=== PATIENT | male | born 1950 | race Caucasian/White ===

== ENCOUNTER → 2018-09-11 | Outpatient (CLI) | payer MEDICARE ==
--- NOTE | 2018-09-12 07:20 | US ---
EXAMINATION TYPE: US kidneys/renal and bladder DATE OF EXAM: 09/11/2018 COMPARISON: NONE CLINICAL HISTORY: N18.3 CKD Stage 3. EXAM MEASUREMENTS: Right Kidney: 11.2 x 5.5 x 5.5 cm Left Kidney: 12.3 x 5. 1 x 5.5 cm Morbidly obese patient, technically difficult limited study. Right Kidney: multiple cysts largest measuring 3.3 x 3.1 x 3.6cm Left Kidney: cysts measuring 3.3 x 3.4 x 3.3cm Bladder: not visualized due to large panis There is no evidence for hydronephrosis at this point in time. No nephrolithiasis is seen. The urin eleazar bladder is anechoic. Bilateral ureteral jets are seen. IMPRESSION: Exam is slightly limited secondary to patient body habitus with nonvisualization of the urinary bladd er. There are bilateral simple appearing cortical renal cysts without hydronephrosis.
== END | disposition home or self-care (01) ==
LOC: RADUSWWP 15:19
PROVIDERS: ATTEND Internal Medicine Nephrology
DX: N28.1 Cyst of kidney, acquired (principal); N18.3 Chronic kidney disease, stage 3 (moderate)
CPT/HCPCS: 76770

== ENCOUNTER 2018-10-10 06:54 | Day surgery (SDC) | payer MEDICARE ==
[2018-10-06 15:30] VITALS: BMI 44.3
[~2018-10-10 06:54] MED LIST: LACTATED RINGERS 1,000 ML IV SCH; LIDOCAINE 1% 20 ML VIAL (10MG/ML) FOR IV START INTRADERMA PRN
[2018-10-10 07:15] VITALS: RESP 16; TEMP 98.3
[2018-10-10 07:29] LABS: Glucose,Whole Blood 162 mg/dL (75-99)
[2018-10-10] MEDS ORDERED: PROPOFOL 10 MG/ML 20 ML VIAL IV ONE (08:43)
[2018-10-10] MEDS ORDERED: LIDOCAINE 1% INJ 10MG/ML (20 ML MDV) ONE (08:43)
[2018-10-10 09:33] VITALS: BP 124/84; PULSE 92
--- NOTE | 2018-10-10 15:03 | P.PCN ---
Date of Procedure: 10/10/18 Procedure(s) Performed: Procedure: Colonoscopy and polypectomy. Preoperative diagnosis: Positive cologuard test. Postoperative diagnosis: 1. Diverticulosis with no evidence of acute diverticulitis or strictures. 2. Benign appearing flat polyp around the splenic flexure partially removed piecemeal with the snare and few small and diminutive satellite polyps around the splenic flexure. 3. No large polyps or obvious cancer. Preparation: HalfLytely prep. Sedation: Was provided by anesthesia. Brief clinical history: The patient is a 68-year-old male who is referred for this evaluation because of finding of positive cologuard test. He has history of polyps and had couple colonoscopies in the past the last was around 7 years ago. He has no abdominal pain, change in bowels or any upper GI complaints or overt bleeding. Procedure: With the patient on his left lateral decubitus position and after informed consent and adequate sedation, the perianal area was inspected and it did not show any fissures or fistulas. There were no masses felt on digital rectal examination. The Olympus CFH 190L video colonoscope was then inserted in the rectum in the usual fashion and advanced to the cecum. There was a benign appearing flat polyp around the splenic flexure measuring around 2-3 cm with few small satellite polyps in the vicinity. There were no large polyps or cancer. I used the snare to remove this polyp partially by piecemeal. There was diffuse diverticulosis with no evidence of acute diverticulitis or strictures. There were no large polyps or cancer. I retroflexed the endoscope in the rectum before the endoscope was withdrawn The patient tolerated the procedure well. Plan: The patient was reassured. Will await pathology results and make further plans for his surveillance and screening. I will keep you updated on his progress.
== END 2018-10-10 09:47 | disposition home or self-care (01) ==
LOC: ORWHC2ENDO 06:54
DX: D12.3 Benign neoplasm of transverse colon (principal); K57.30 Diverticulosis of large intestine without perforation or abscess without bleeding; R19.5 Other fecal abnormalities; Z86.010 Personal history of colon polyps; J44.9 Chronic obstructive pulmonary disease, unspecified; I48.91 Unspecified atrial fibrillation; E11.9 Type 2 diabetes mellitus without complications; I10 Essential (primary) hypertension; I25.10 Atherosclerotic heart disease of native coronary artery without angina pectoris; E78.5 Hyperlipidemia, unspecified; G47.33 Obstructive sleep apnea (adult) (pediatric); G93.2 Benign intracranial hypertension; M10.9 Gout, unspecified; I25.2 Old myocardial infarction; Z86.718 Personal history of other venous thrombosis and embolism; Z79.01 Long term (current) use of anticoagulants; Z79.84 Long term (current) use of oral hypoglycemic drugs; Z79.82 Long term (current) use of aspirin; Z79.899 Other long term (current) drug therapy
CPT/HCPCS: 88305; 45385; J2001; J2704

== ENCOUNTER 2021-01-23 16:13 | Emergency (ER) | payer MEDICARE ==
[2021-01-23 16:46] VITALS: BP 156/76; PULSE 70; RESP 16; TEMP 97.8
--- NOTE | 2021-01-23 17:03 | ED ---
Fall HPI - General Chief Complaint: Fall Stated Complaint: Fall, Head Injury Time Seen by Provider: 01/23/21 16:50 Source: patient, RN notes reviewed Mode of arrival: wheelchair - History of Present Illness Initial Comments: Patient is a 70-year-old male that presents to emergency department after falling and hitting his head on the door frame. He notes that he does take a loquacious an 81 mg aspirin every day. She denied loss of consciousness confusion change in vision. He notes that he is feeling final sitting up in bed during exam and interview in no apparent distress or pain. He notes that he came in just to get evaluated to make sure there is no internal bleeding. He denied any chest pain shortness breath headache nausea vomiting diarrhea constipation fever fatigue chills weakness numbness tingling lethargic. - Related Data Home Medications Medication Instructions Recorded Confirmed Aspirin 81 mg PO DAILY 11/05/14 10/10/18 Colchicine [Colcrys] 0.6 mg PO DAILY PRN 11/05/14 10/10/18 Ergocalciferol (Vitamin D2) 50,000 unit PO FR 11/05/14 10/10/18 [Drisdol] Simvastatin [Zocor] 20 mg PO HS 11/05/14 10/10/18 amLODIPine [Norvasc] 5 mg PO QAM 11/05/14 10/10/18 Rivaroxaban [Xarelto] 20 mg PO QAM 01/29/16 10/10/18 Triamterene-Hctz 37.5-25Mg 1 cap PO DAILY 05/04/16 10/10/18 [Dyazide 37.5-25 Capsule] allopurinoL [Zyloprim] 100 mg PO BID 05/04/16 10/10/18 Cinnamon Bark [Cinnamon] 500 mg PO BID 10/06/18 10/10/18 Metoprolol Tartrate 25 mg PO 10/06/18 10/10/18 Metoprolol Tartrate 50 mg PO QAM 10/06/18 10/10/18 glipiZIDE [Glucotrol] 5 mg PO AC-BRKFST 10/06/18 10/10/18 ramipriL [Altace] 5 mg PO QAM 10/06/18 10/10/18 sitaGLIPtin [Januvia] 50 mg PO 10/06/18 10/10/18 Allergies Allergy/AdvReac Type Severity Reaction Status Date / Time No Known Allergies Allergy Verified 01/23/21 16:46 Review of Systems ROS Statement: Those systems with pertinent positive or pertinent negative responses have been documented in the HPI. ROS Other: All systems not noted in ROS Statement are negative. Past Medical History Past Medical History: Atrial Fibrillation, COPD, Diabetes Mellitus, Deep Vein Thrombosis (DVT), Eye Disorder, Hyperlipidemia, Hypertension, Myocardial Infarction (MT), Osteoarthritis (OA), Renal Disease, Sleep Apnea/CPAP/BIPAP Additional Past Medical History / Comment(s): 2016 sepsis, severe back pain, hx bacteremia, DDD, renal cysts being followed by Dr. 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 Past Psychological History: No Psychological Hx Reported Smoking Status: Never smoker Past Alcohol Use History: Rare Past Drug Use History: Marijuana - Past Family History Mother Family Medical History: CVA/TIA, Deep Vein Thrombosis (DVT) Additional Family Medical History / Comment(s): Mother is 92 yrs old. She had a CVA which left her with R sided paralysis. Father Family Medical History: Cancer Additional Family Medical History / Comment(s): Father is . General Exam Limitations: no limitations General appearance: alert, in no apparent distress, obese Head exam: Present: normocephalic, normal inspection. Absent: atraumatic (Patient does have a small bump to the superior right side of the skull.) Eye exam: Present: normal appearance, PERRL, EOMI. Absent: scleral icterus, conjunctival injection, periorbital swelling Neck exam: Present: normal inspection Respiratory exam: Present: normal lung sounds bilaterally. Absent: respiratory distress, wheezes, rales, rhonchi, stridor Cardiovascular Exam: Present: regular rate, normal rhythm, normal heart sounds. Absent: systolic murmur, diastolic murmur, rubs, gallop, clicks GI/Abdominal exam: Present: soft, normal bowel sounds. Absent: distended, tenderness, guarding, rebound, rigid Extremities exam: Present: normal inspection, full ROM, normal capillary refill. Absent: tenderness, pedal edema, joint swelling, calf tenderness Neurological exam: Present: alert, oriented X3, CN II-XII intact Psychiatric exam: Present: normal affect, normal mood Skin exam: Present: warm, dry, intact, normal color. Absent: rash Course Vital Signs 01/23/21 16:44 Temperature 97.8 F Pulse Rate 70 Respiratory 16 Rate Blood Pressure 156/76 O2 Sat by Pulse 95 Oximetry Medical Decision Making - Medical Decision Making 70-year-old male presenting after falling and hitting his head on blood thinners. CT of the brain without contrast, basic labs ordered. Patient declined the need for any pain medication as he was in no pain. CT negative for any intracranial abnormalities. Case discussed with Dr. Gregory, patient discharge home. Patient was discharged in stable condition. - Lab Data Result diagrams: 01/23/21 17:44 01/23/21 17:44 Lab Results 01/23/21 01/23/21 01/23/21 Range/Units 17:44 17:44 17:44 WBC 9.2 (3.8-10.6) k/uL RBC 5.81 (4.30-5.90) m/uL Hgb 17.9 H (13.0-17.5) gm/dL Hct 54.0 H (39.0-53.0) % MCV 92.9 (80.0-100.0) fL MCH 30.7 (25.0-35.0) pg MCHC 33.1 (31.0-37.0) g/dL RDW 13.7 (11.5-15.5) % Plt Count 157 (150-450) k/uL MPV 7.4 Neutrophils % 67 % Lymphocytes % 21 % Monocytes % 7 % Eosinophils % 2 % Basophils % 1 % Neutrophils # 6.1 (1.3-7.7) k/uL Lymphocytes # 1.9 (1.0-4.8) k/uL Monocytes # 0.6 (0-1.0) k/uL Eosinophils # 0.2 (0-0.7) k/uL Basophils # 0.1 (0-0.2) k/uL PT 12.2 H (9.0-12.0) sec INR 1.2 H (<1.2) APTT 26.7 (22.0-30.0) sec Sodium 139 (137-145) mmol/L Potassium 4.4 (3.5-5.1) mmol/L Chloride 104 (98-107) mmol/L Carbon Dioxide 27 (22-30) mmol/L Anion Gap 8 mmol/L BUN 36 H (9-20) mg/dL Creatinine 2.03 H (0.66-1.25) mg/dL Est GFR (CKD-EPI)AfAm 37 (>60 ml/min/1.73 sqM) Est GFR (CKD-EPI)NonAf 32 (>60 ml/min/1.73 sqM) Glucose 128 H (74-99) mg/dL Calcium 9.9 (8.4-10.2) mg/dL - Radiology Data Radiology results: report reviewed, image reviewed CT of the brain: Cerebral atrophy. No acute intracranial abnormality. No significant change. Disposition Clinical Impression: Fall Disposition: HOME SELF-CARE Condition: Stable Instructions (If sedation given, give patient instructions): Fall Prevention for Older Adults (ED) Additional Instructions: Please return to the Emergency Department if symptoms worsen or any other concerns. Follow-up primary care in 3-5 days. Continue to take at home medications as prescribed. Monitor for any change in mental status. Is patient prescribed a controlled substance at d/c from ED?: No Referrals: Oh Holder DO [Primary Care Provider] - 1-2 days Time of Disposition: 18:58
[2021-01-23 17:52] LABS: Basophils # (A) 0.1 k/uL (0-0.2); Basophils % (A) 1 %; Eosinophils # (A) 0.2 k/uL (0-0.7); Eosinophils % (A) 2 %; HGB 17.9 gm/dL (13.0-17.5); Lymphocytes # (A) 1.9 k/uL (1.0-4.8); Lymphocytes % (A) 21 %; MCH 30.7 pg (25.0-35.0); MCHC 33.1 g/dL (31.0-37.0); MCV 92.9 fL (80.0-100.0); Mean Platelet Volume 7.4; Monocytes # (A) 0.6 k/uL (0-1.0); Monocytes % (A) 7 %; Neutrophils # (A) 6.1 k/uL (1.3-7.7); Neutrophils % (A) 67 %; Platelet Count 157 k/uL (150-450); RBC 5.81 m/uL (4.30-5.90); RDW 13.7 % (11.5-15.5); WBC 9.2 k/uL (3.8-10.6)
[2021-01-23 18:02] LABS: Calcium 9.9 mg/dL (8.4-10.2); Potassium 4.4 mmol/L (3.5-5.1)
[2021-01-23 18:04] LABS: INR 1.2 (<1.2); Partial Thromboplastin Time 26.7 sec (22.0-30.0); Prothrombin Time 12.2 sec (9.0-12.0)
--- NOTE | 2021-01-23 18:55 | CT ---
EXAMINATION TYPE: CT brain wo con DATE OF EXAM: 01/23/2021 COMPARISON: HISTORY: Head injury on blood thinners CT DLP: 1189.4 mGycm Automated exposure control for dose reduction was used. There is cerebral cortical atrophy. There is no mass effect nor midline shift. There is no sign of in tracranial hemorrhage. There is small left occipital scalp hematoma. The calvarium is intact. There i s no evidence for fracture. The skull base is intact. There is normal aeration of the mastoid sinuses . IMPRESSION: Cerebral atrophy. No acute intracranial abnormality. No significant change.
== END 2021-01-23 19:05 | disposition home or self-care (01) ==
LOC: EC 16:13
DX: S09.90XA Unspecified injury of head, initial encounter (principal); I48.91 Unspecified atrial fibrillation; J44.9 Chronic obstructive pulmonary disease, unspecified; E11.9 Type 2 diabetes mellitus without complications; Z86.718 Personal history of other venous thrombosis and embolism; E78.5 Hyperlipidemia, unspecified; I10 Essential (primary) hypertension; M19.90 Unspecified osteoarthritis, unspecified site; I21.9 Acute myocardial infarction, unspecified; G47.30 Sleep apnea, unspecified; Z79.01 Long term (current) use of anticoagulants; W18.09XA Striking against other object with subsequent fall, initial encounter
CPT/HCPCS: 36415; 70450; 80048; 85025; 85610; 85730; 99284

== ENCOUNTER 2022-12-05 23:26 | Inpatient (IN) | payer MEDICARE ==
[2022-12-05] MEDS ORDERED: ACETAMINOPHEN TAB 500 MG TAB PO STA (23:43)
[2022-12-05] MEDS: SODIUM CHLORIDE 0.9% 500 ML 500 ML IV SCH (23:59)
[2022-12-06 00:02] LABS: Basophils # (A) 0.1 k/uL (0-0.2); Basophils % (A) 0 %; Eosinophils # (A) 0.1 k/uL (0-0.7); Eosinophils % (A) 1 %; HCT 38.8 % (39.0-53.0); HGB 12.3 gm/dL (13.0-17.5); Lymphocytes # (A) 0.5 k/uL (1.0-4.8); Lymphocytes % (A) 2 %; MCH 29.7 pg (25.0-35.0); MCHC 31.8 g/dL (31.0-37.0); MCV 93.3 fL (80.0-100.0); Mean Platelet Volume 7.9; Monocytes # (A) 0.7 k/uL (0-1.0); Monocytes % (A) 3 %; Neutrophils # (A) 19.8 k/uL (1.3-7.7); Neutrophils % (A) 92 %; RBC 4.15 m/uL (4.30-5.90); RDW 14.5 % (11.5-15.5); WBC 21.6 k/uL (3.8-10.6)
[2022-12-06 00:04] LABS: Platelet Count 301 k/uL (150-450)
[2022-12-06 00:05] LABS: Glucose,Whole Blood 153 mg/dL (70-110)
[2022-12-06 00:05] LABS: Appearance,Urine Clear (Clear); Bilirubin,Urine Negative (Negative); Blood,Urine Moderate (Negative); Color,Urine Yellow; Glucose,Urine (UA) 1+ (Negative); Hyaline Casts,Urine 1 /lpf (0-2); Ketones,Urine Negative (Negative); Leukocyte Esterase,Urine Negative (Negative); Mucus,Urine Rare /hpf; Nitrite,Urine Negative (Negative); Protein,Urine 3+ (Negative); RBC,Urine 91 /hpf (0-5); Specific Gravity,Urine 1.012 (1.001-1.035); Urobilinogen,Urine <2.0 mg/dL (<2.0); WBC,Urine 5 /hpf (0-5)
[2022-12-06 00:10] LABS: INR 1.2 (<1.2); Partial Thromboplastin Time 27.8 sec (22.0-30.0); Prothrombin Time 12.6 sec (9.0-12.0)
[2022-12-06 00:15] LABS: Albumin 2.7 g/dL (3.5-5.0); Calcium 8.4 mg/dL (8.4-10.2); Potassium 3.7 mmol/L (3.5-5.1); Total Bilirubin 0.8 mg/dL (0.2-1.3); Total Protein 5.8 g/dL (6.3-8.2)
--- NOTE | 2022-12-06 00:43 | XR ---
EXAMINATION TYPE: XR chest 1V portable DATE OF EXAM: 12/06/2022 COMPARISON: 11/17/2022 HISTORY: Fever TECHNIQUE: Single view FINDINGS: There is some interstitial infiltrates and atelectasis at the lung bases. Heart is enlarged . There are chest leads. Bony thorax is intact. IMPRESSION: There is improvement in the pulmonary congestion and interstitial edema and subsegmental atelectasis compared to old exam. This could be improving congestive heart failure.
[2022-12-06] MEDS: SODIUM CHLORIDE 0.9% 500 ML 500 ML IV SCH (00:47)
--- NOTE | 2022-12-06 02:29 | ED ---
General Adult HPI - General Chief complaint: Altered Mental Status Stated complaint: Altered Mental Status Time Seen by Provider: 12/05/22 23:27 Source: EMS Mode of arrival: EMS Limitations: altered mental status, physical limitation - History of Present Illness Initial comments: This is a 72-year-old male with a past medical history including atrial fib rillation presents the emergency department via EMS for altered mental status. It was reported the patient had become altered throat the day and was concerning for a UTI so they sent the patient in for further workup. On arrival, the patient was ANO times one which was not his baseline. The patient however did not appear in any acute distress or pain. The patient cannot provide any further history at this time and EMS did not have any other history. There was no family at the bedside at this time. - Related Data Home Medications Medication Instructions Recorded Confirmed Aspirin 81 mg PO HS 11/05/14 11/17/22 Simvastatin [Zocor] 20 mg PO HS 11/05/14 11/17/22 allopurinoL [Zyloprim] 100 mg PO BID 05/04/16 11/17/22 Cinnamon Bark [Cinnamon] 500 mg PO DAILY 10/06/18 11/17/22 Metoprolol Tartrate 25 mg PO HS 10/06/18 11/17/22 Metoprolol Tartrate 50 mg PO DAILY 10/06/18 11/17/22 Ergocalciferol (Vitamin D2) 1,250 mcg PO MOWEFR@209911/17/22 11/17/22 [Drisdol (50,000 Iu)] Melatonin 5 mg PO HS 11/17/22 11/17/22 calcitrioL [Calcitriol] 0.5 mcg PO SUTH@209911/17/22 11/17/22 Previous Rx's Medication Instructions Recorded Acetaminophen Tab [Tylenol] 650 mg PO Q6HR PRN tab 11/22/22 Albuterol Inhaler [Ventolin Hfa 2 puff INHALATION RT-QID PRN #1 11/22/22 Inhaler] each Apixaban [Eliquis] 2.5 mg PO BID #60 tab 11/22/22 Furosemide [Lasix] 40 mg PO BID@0900,1600 #60 tab 11/22/22 Linagliptin [Tradjenta] 5 mg PO HS #30 tab 11/22/22 Allergies Allergy/AdvReac Type Severity Reaction Status Date / Time No Known Allergies Allergy Verified 11/17/22 10:15 Review of Systems ROS Statement: Those systems with pertinent positive or pertinent negative responses have been documented in the HPI. Limitations: ROS unobtainable due to patients medical condition Past Medical History Past Medical History: Atrial Fibrillation, COPD, Diabetes Mellitus, Deep Vein Thrombosis (DVT), Eye Disorder, Hyperlipidemia, Hypertension, Myocardial Infarction ([place]), Osteoarthritis (OA), Renal Disease, Sleep Apnea/CPAP/BIPAP Additional Past Medical History / Comment(s): 2016 sepsis, severe back pain, hx bacteremia, DDD, renal cysts being followed by Dr. 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 Past Psychological History: No Psychological Hx Reported Smoking Status: Never smoker Past Alcohol Use History: Rare Past Drug Use History: Marijuana - Past Family History Mother Family Medical History: CVA/TIA, Deep Vein Thrombosis (DVT) Additional Family Medical History / Comment(s): Mother is 92 yrs old. She had a CVA which left her with R sided paralysis. Father Family Medical History: Cancer Additional Family Medical History / Comment(s): Father is . General Exam Limitations: altered mental status, physical limitation General appearance: alert, in no apparent distress, obese Head exam: Present: atraumatic, normocephalic, normal inspection Eye exam: Present: normal appearance, PERRL Pupils: Present: normal accommodation ENT exam: Present: normal exam, normal oropharynx, mucous membranes moist Neck exam: Present: normal inspection, full ROM Respiratory exam: Present: decreased breath sounds (Likely secondary to habitus, without any wheezing or rhonchi heard.) Cardiovascular Exam: Present: tachycardia, irregular rhythm GI/Abdominal exam: Present: soft, tenderness (Minor tenderness noted to the suprapubic region), normal bowel sounds Extremities exam: Present: normal inspection, pedal edema Back exam: Present: normal inspection, full ROM Neurological exam: Present: alert, altered (ANOx1) Psychiatric exam: Present: normal affect, normal mood Skin exam: Present: warm, dry Course Vital Signs 12/05/22 12/06/22 12/06/22 23:28 00:00 00:10 Temperature 98.4 F Pulse Rate 118 H 92 102 H Respiratory 26 H 2 L 24 Rate Blood Pressure 146/78 140/105 136/76 O2 Sat by Pulse Oximetry 12/06/22 12/06/22 12/06/22 00:14 00:15 00:30 Temperature Pulse Rate 103 H 92 Respiratory 26 H 28 H 29 H Rate Blood Pressure 136/76 136/76 125/84 O2 Sat by Pulse Oximetry 12/06/22 12/06/22 12/06/22 00:34 00:45 01:00 Temperature Pulse Rate 112 H 96 Respiratory 22 20 Rate Blood Pressure 126/63 128/71 O2 Sat by Pulse 94 L 92 L 94 L Oximetry 12/06/22 01:15 Temperature Pulse Rate 101 H Respiratory 23 Rate Blood Pressure 119/62 O2 Sat by Pulse 93 L Oximetry EKG Findings - EKG Comments: EKG Findings:: An EKG was obtained and was interpreted by myself showing a rate of 96, QRS duration of 126, QTC of 297. This EKG showed an atrial fibrillation. The patient does have a history of this and did not show any signs of ST segment elevation or depression noted. Medical Decision Making - Medical Decision Making Was pt. sent in by a medical professional or institution (, PA, PROCEDURES RN, urgent care, hospital, or longterm...) When possible be specific @ -No Did you speak to anyone other than the patient for history (EMS, parent, family, police, friend...)? What history was obtained from this source @ -Yes, EMS Did you review nursing and triage notes (agree or disagree)? Why? @ -I reviewed and agree with nursing and triage notes Were old charts reviewed (outside hosp., previous admission, EMS record, old EKG, old radiological studies, urgent care reports/EKG's, longterm records)? Report findings @ -No old charts were reviewed Differential Diagnosis (chest pain, altered mental status, abdominal pain women, abdominal pain men, vaginal bleeding, weakness, fever, dyspnea, syncope, headache, dizziness, GI bleed, back pain, seizure, CVA, palpatations, mental health)? @ -UTI, sepsis, pneumonia EKG interpreted by me (3pts min.). @ -As above X-rays interpreted by me (1pt min.). @ -Chest x-ray was obtained and was interpreted by myself showing improvement in the pulmonary congestion and interstitial edema and subsegmental atelectasis compared to the old exam. CT interpreted by me (1pt min.). @ -CT head was ordered and was pending at this time. U/S interpreted by me (1pt. min.). @ -None done What testing was considered but not performed or refused? (CT, X-rays, U/S, labs)? Why? @ -None What meds were considered but not given or refused? Why? @ -30 mL per KG of fluids per sepsis protocol was not given as the patient had significant CHF exacerbation with lower extremity edema Did you discuss the management of the patient with other professionals (professionals i.e. , PA, PROCEDURES RN, lab, RT, psych nurse, social insurance adviser, library technical assistant, teacher, soil science technical officer, case hardener)? Give summary @ -Yes, admitting team, Linsey Harrison Was smoking cessation discussed for >3mins.? @ -No Was critical care preformed (if so, how long)? @ -Yes, see above Were there social determinants of health that impacted care today? How? (Homelessness, low income, unemployed, alcoholism, drug addiction, transportation, low edu. Level, literacy, decrease access to med. care, [facility], rehab)? @ -No Was there de-escalation of care discussed even if they declined (Discuss DNR or withdrawal of care, Hospice)? DNR status @ -No What co-morbidities impacted this encounter? (DM, HTN, Smoking, COPD, CAD, Cancer, CVA, ARF, Chemo, Hep., AIDS, mental health diagnosis, sleep apnea, morbid obesity)? @ -None Was patient admitted / discharged? Hospital course, mention meds given and route, prescriptions, significant lab abnormalities, going to OR and other pertinent info. @ -The patient was seen and evaluated emergency department. Physical exam, the patient was resting in bed without any pain or distress however the patient was tachycardic. The patient did not have a documented fever but did feel warm. Due to the patient's concern for altered mental status in the setting of sepsis, sepsis workup was initiated. The patient did receive a cultures and receive 1 g of Rocephin. The patient had elevated white blood cell count of 21 without any known etiology. Chest x-ray did not show any pneumonia and urine was negative for a UTI. The patient's laboratory workup also showed a creatinine that was elevated at 3.9, at his baseline over the last several weeks. Due to the patient's altered mental status in the setting of sepsis with unknown etiology, the patient will be admitted for further workup and evaluation. Troponin, proBNP and a head CT were added on for admission. The patient was admitted in stable condition. Undiagnosed new problem with uncertain prognosis? @ -No Drug Therapy requiring intensive monitoring for toxicity (Heparin, Nitro, Insulin, Cardizem)? @ -No Were any procedures done? @ -No Diagnosis/symptom? @ -Sepsis with unknown etiology with altered mental status Acute, or Chronic, or Acute on Chronic? @ -Acute Uncomplicated (without systemic symptoms) or Complicated (systemic symptoms)? @ -Complicated Side effects of treatment? @ -No Exacerbation, Progression, or Severe Exacerbation? @ -No Poses a threat to life or bodily function? How? (Chest pain, [place], [place], pneumonia, PE, COPD, DKA, ARF, appy, cholecystitis, CVA, Diverticulitis, Homicidal, Suicidal, threat to staff... and all critical care pts) @ -Yes, sepsis can cause continued infection and end organ damage and worsening symptoms causing possible . - Lab Data Result diagrams: 12/05/22 23:46 12/05/22 23:46 Lab Results 12/05/22 12/05/22 12/05/22 Range/Units 23:46 23:46 23:46 WBC 21.6 H (3.8-10.6) k/uL RBC 4.15 L (4.30-5.90) m/uL Hgb 12.3 L (13.0-17.5) gm/dL Hct 38.8 L (39.0-53.0) % MCV 93.3 (80.0-100.0) fL MCH 29.7 (25.0-35.0) pg MCHC 31.8 (31.0-37.0) g/dL RDW 14.5 (11.5-15.5) % Plt Count 301 D (150-450) k/uL MPV 7.9 Neutrophils % 92 % Lymphocytes % 2 % Monocytes % 3 % Eosinophils % 1 % Basophils % 0 % Neutrophils # 19.8 H (1.3-7.7) k/uL Lymphocytes # 0.5 L (1.0-4.8) k/uL Monocytes # 0.7 (0-1.0) k/uL Eosinophils # 0.1 (0-0.7) k/uL Basophils # 0.1 (0-0.2) k/uL PT 12.6 H (9.0-12.0) sec INR 1.2 H (<1.2) APTT 27.8 (22.0-30.0) sec Sodium 127 L (137-145) mmol/L Potassium 3.7 (3.5-5.1) mmol/L Chloride 88 L (98-107) mmol/L Carbon Dioxide 28 (22-30) mmol/L Anion Gap 11 mmol/L BUN 69 H (9-20) mg/dL Creatinine 3.97 H (0.66-1.25) mg/dL Est GFR (CKD-EPI)AfAm 16 (>60 ml/min/1.73 sqM) Est GFR (CKD-EPI)NonAf 14 (>60 ml/min/1.73 sqM) Glucose 134 H (74-99) mg/dL POC Glucose (mg/dL) (70-110) mg/dL POC Glu Newspaper Manager ID Plasma Lactic Acid Ankit (0.7-2.0) mmol/L Calcium 8.4 (8.4-10.2) mg/dL Total Bilirubin 0.8 (0.2-1.3) mg/dL AST 39 (17-59) U/L ALT 29 (4-49) U/L Alkaline Phosphatase 108 (38-126) U/L Total Protein 5.8 L (6.3-8.2) g/dL Albumin 2.7 L (3.5-5.0) g/dL Urine Color Urine Appearance (Clear) Urine pH (5.0-8.0) Ur Specific [place] (1.001-1.035) Urine Protein (Negative) Urine Glucose (UA) (Negative) Urine Ketones (Negative) Urine Blood (Negative) Urine Nitrite (Negative) Urine Bilirubin (Negative) Urine Urobilinogen (<2.0) mg/dL Ur Leukocyte Esterase (Negative) Urine RBC (0-5) /hpf Urine WBC (0-5) /hpf Hyaline Casts (0-2) /lpf Urine Mucus (None) /hpf 12/05/22 12/05/22 12/06/22 Range/Units 23:46 23:46 00:03 WBC (3.8-10.6) k/uL RBC (4.30-5.90) m/uL Hgb (13.0-17.5) gm/dL Hct (39.0-53.0) % MCV (80.0-100.0) fL MCH (25.0-35.0) pg MCHC (31.0-37.0) g/dL RDW (11.5-15.5) % Plt Count (150-450) k/uL MPV Neutrophils % % Lymphocytes % % Monocytes % % Eosinophils % % Basophils % % Neutrophils # (1.3-7.7) k/uL Lymphocytes # (1.0-4.8) k/uL Monocytes # (0-1.0) k/uL Eosinophils # (0-0.7) k/uL Basophils # (0-0.2) k/uL PT (9.0-12.0) sec INR (<1.2) APTT (22.0-30.0) sec Sodium (137-145) mmol/L Potassium (3.5-5.1) mmol/L Chloride (98-107) mmol/L Carbon Dioxide (22-30) mmol/L Anion Gap mmol/L BUN (9-20) mg/dL Creatinine (0.66-1.25) mg/dL Est GFR (CKD-EPI)AfAm (>60 ml/min/1.73 sqM) Est GFR (CKD-EPI)NonAf (>60 ml/min/1.73 sqM) Glucose (74-99) mg/dL POC Glucose (mg/dL) 153 H (70-110) mg/dL POC Glu Newspaper Manager ID Genaro Jean Plasma Lactic Acid Ankit 1.5 (0.7-2.0) mmol/L Calcium (8.4-10.2) mg/dL Total Bilirubin (0.2-1.3) mg/dL AST (17-59) U/L ALT (4-49) U/L Alkaline Phosphatase (38-126) U/L Total Protein (6.3-8.2) g/dL Albumin (3.5-5.0) g/dL Urine Color Yellow Urine Appearance Clear (Clear) Urine pH 7.0 (5.0-8.0) Ur Specific [place] 1.012 (1.001-1.035) Urine Protein 3+ H (Negative) Urine Glucose (UA) 1+ H (Negative) Urine Ketones Negative (Negative) Urine Blood Moderate H (Negative) Urine Nitrite Negative (Negative) Urine Bilirubin Negative (Negative) Urine Urobilinogen <2.0 (<2.0) mg/dL Ur Leukocyte Esterase Negative (Negative) Urine RBC 91 H (0-5) /hpf Urine WBC 5 (0-5) /hpf Hyaline Casts 1 (0-2) /lpf Urine Mucus Rare H (None) /hpf Critical Care Time Critical Care Time: Yes Total Critical Care Time: 32 Disposition Clinical Impression: Sepsis, AMS (altered mental status), CKD (chronic kidney disease), Hyponatremia Disposition: ADMITTED IP TO THIS [facility] Condition: Stable Is patient prescribed a controlled substance at d/c from ED?: No Referrals: Oh Holder DO [Primary Care Provider] - 1-2 days Time of Disposition: 02:00 Decision to Admit Reason: Admit from EC Decision Date: 12/06/22 Decision Time: 02:00
[2022-12-06] MEDS ORDERED: VANCOMYCIN 2,000 MG in SODIUM CHLORIDE 0.9% 500 ML 500 ML IVPB STA (03:10)
[2022-12-06] MEDS ORDERED: VANCOMYCIN IV PER PHARMACY 1 EACH MISC MISCELLANE PRN ×2 (03:12→19:04)
[2022-12-06] MEDS ORDERED: HEPARIN SODIUM 1,000 UN/ML (10ML VL) IV PRN (03:35)
[2022-12-06] MEDS ORDERED: FUROSEMIDE 10 MG/ML 4 ML VIAL IV STA (03:39)
[2022-12-06] MEDS ORDERED: HEPARIN SOD,PORK IN 0.45% NACL 25,000 UNIT in 0.45% NACL 1 250ML.BAG IV SCH (03:45)
--- NOTE | 2022-12-06 03:52 | CT ---
EXAMINATION TYPE: CT brain wo con DATE OF EXAM: 12/06/2022 COMPARISON: 01/23/2021 HISTORY: ams CT DLP: 1408.4 mGycm Automated exposure control for dose reduction was used. Images of the brain obtained with no contrast. Cortical atrophy. There is no mass effect or midline shift. No sign of intracranial hemorrhage. Paul rium is intact. There is normal aeration of the mastoid sinuses. Skull base is intact. IMPRESSION: Cerebral atrophy. No acute intracranial abnormality.
--- NOTE | 2022-12-06 11:24 | P.NPCON ---
History of Present Illness - Reason for Consult chronic renal failure - History of Present Illness Patient is a 72-year-old male with history of chronic A. fib, chronic kidney disease NKF stage IV secondary to diabetic kidney disease and cardiorenal syndrome with recent creatinine around 3.9-4 mg/dL prior to discharge on 11/22/2022. At that time patient was diuresed and discharged home on oral diuretics. He had been on a Lasix drip during the last hospitalization. Patient is admitted this time with mental status changes. Brain CT was negative. Serum creatinine is about the same at 3.9 mg/dL. Patient denies any significant shortness of breath. A Corrales catheter was placed in the ER. It is unclear if patient had retention. Blood pressure has not been low O2 sats 92% on 4 L. Chest x-ray from this admission appears to be significantly improved from last admission with improvement in aeration and decreased CHF. Review of Systems As per HPI Past Medical History Past Medical History: Atrial Fibrillation, COPD, Diabetes Mellitus, Deep Vein Thrombosis (DVT), Eye Disorder, Hyperlipidemia, Hypertension, Myocardial Infarction ([place]), Osteoarthritis ([place]), Renal Disease, Sleep Apnea/CPAP/BIPAP Additional Past Medical History / Comment(s): 2016 sepsis, severe back pain, hx bacteremia, DDD, renal cysts being followed by Dr. 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 Past Psychological History: No Psychological Hx Reported Smoking Status: Never smoker Past Alcohol Use History: Rare Past Drug Use History: Marijuana - Past Family History Mother Family Medical History: CVA/TIA, Deep Vein Thrombosis (DVT) Additional Family Medical History / Comment(s): Mother is 92 yrs old. She had a CVA which left her with R sided paralysis. Father Family Medical History: Cancer Additional Family Medical History / Comment(s): Father is . Medications and Allergies Home Medications Medication Instructions Recorded Confirmed Type Aspirin 81 mg PO HS 11/05/14 12/06/22 History Simvastatin [Zocor] 20 mg PO HS 11/05/14 12/06/22 History allopurinoL [Zyloprim] 100 mg PO BID 05/04/16 12/06/22 History Cinnamon Bark [Cinnamon] 500 mg PO DAILY 10/06/18 12/06/22 History Metoprolol Tartrate 25 mg PO HS 10/06/18 12/06/22 History Metoprolol Tartrate 50 mg PO DAILY 10/06/18 12/06/22 History Ergocalciferol (Vitamin D2) 1,250 mcg PO MOWEFR@2100 11/17/22 12/06/22 History [Drisdol (50,000 Iu)] Melatonin 5 mg PO HS 11/17/22 12/06/22 History calcitrioL [Calcitriol] 0.5 mcg PO SUTH@2100 11/17/22 12/06/22 History Acetaminophen Tab [Tylenol] 650 mg PO Q6HR PRN tab 11/22/22 12/06/22 Rx Albuterol Inhaler [Ventolin Hfa 2 puff INHALATION RT-QID PRN #1 11/22/22 Rx Inhaler] each Apixaban [Eliquis] 2.5 mg PO BID #60 tab 11/22/22 12/06/22 Rx Furosemide [Lasix] 40 mg PO BID@0900,1600 #60 tab 11/22/22 12/06/22 Rx Linagliptin [Tradjenta] 5 mg PO HS #30 tab 11/22/22 12/06/22 Rx Sulfamethoxazole/Trimethoprim 1 tab PO BID 12/06/22 12/06/22 History [Bactrim SS 400-80 mg] Allergies Allergy/AdvReac Type Severity Reaction Status Date / Time No Known Allergies Allergy Verified 12/06/22 06:46 Physical Exam Vitals: Vital Signs Temp Pulse Pulse Resp BP BP Pulse Ox 12/06/22 08:00 97.6 F 72 18 145/71 92 L 12/06/22 07:13 96.9 F L 12/06/22 07:00 64 16 129/75 94 L 12/06/22 06:00 73 16 123/71 95 12/06/22 05:00 77 18 137/73 94 L 12/06/22 04:00 119/76 94 L 12/06/22 03:00 89 18 105/68 12/06/22 02:00 98 18 107/68 12/06/22 01:15 101 H 23 119/62 93 L 12/06/22 01:00 96 20 128/71 94 L 12/06/22 00:45 112 H 22 126/63 92 L 12/06/22 00:34 94 L 12/06/22 00:30 29 H 125/84 12/06/22 00:15 92 28 H 136/76 12/06/22 00:14 103 H 26 H 136/76 12/06/22 00:10 102 H 24 136/76 12/06/22 00:00 92 2 L 140/105 12/05/22 23:28 98.4 F 118 H 26 H 146/78 Intake and Output 12/05/22 12/06/22 12/06/22 22:59 06:59 14:59 Output Total 800 Balance -800 Output: Urine 800 Other: Voiding Method Indwelling Catheter Weight 127.006 kg Patient is awake, comfortable, no acute distress. He is alert and oriented 3 Examination of the heart S1 and S2 Examination of the lungs bilateral breath sounds are heard Abdomen is soft nontender Examination of lower extremity shows chronic edema with chronic skin changes REVIVAL CLERK exam grossly intact Results - Lab Results Most recent lab results Calcium 8.4 mg/dL (8.4-10.2) 12/05/22 23:46 12/05/22 23:46 12/05/22 23:46 Assessment and Plan Assessment: 1. 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 Serum creatinine staying at about 3.9-4 mg/dL from last admission. No hydronephrosis noted on ultrasound during the last admission. Left kidney wasn't assessed due to patient's position and size. 2. Chronic diastolic CHF with mitral and tricuspid regurgitation and [id number] aortic regurgitation, currently stable and improved from last admission about 1 month ago. 3. CK D mineral bone disorder maintained on calcitriol 4. Hyponatremia with volume overload. Possibly related to urine retention if present. No clear documentation noted Plan: Continue with IV Lasix Continue off of IV fluids [place] 1 Maintain adequate oral intake Continue with calcitriol Repeat labs in a.m. Continue with Corrales catheter Thank you for the consultation. We will continue to follow the patient with you during his hospitalization
[2022-12-06 11:40] LABS: Basophils # (A) 0.1 k/uL (0-0.2); Basophils % (A) 0 %; Eosinophils % (A) 0 %; HGB 12.1 gm/dL (13.0-17.5); Lymphocytes % (A) 4 %; MCH 30.8 pg (25.0-35.0); MCHC 32.6 g/dL (31.0-37.0); MCV 94.4 fL (80.0-100.0); Mean Platelet Volume 7.7; Monocytes # (A) 0.7 k/uL (0-1.0); Monocytes % (A) 3 %; Neutrophils # (A) 21.6 k/uL (1.3-7.7); Neutrophils % (A) 90 %; Platelet Count 252 k/uL (150-450); RBC 3.92 m/uL (4.30-5.90); RDW 14.9 % (11.5-15.5)
[2022-12-06 11:45] LABS: Glucose,Whole Blood 146 mg/dL (70-110)
--- NOTE | 2022-12-06 11:45 | P.HPIM ---
History of Present Illness Patient came in with comments of altered mental status shortness of breath and the bilateral pedal edema. Patient past medical history significant for chronic diastolic dysfunction was on diuretics at home. Patient is found to be in heart failure exacerbation chest x-ray showed significant pulmonary edema with bilateral pleural effusions. Patient doesn't have any fever did have leukocytosis of 21,600. Patient is alert oriented 3. Patient was admitted and was treated for CHF as well as pneumonia believing that patient has atelectasis or pneumonia and patient was receiving vancomycin. Patient does drink alcohol quite a bit but not a daily basis. Patient has elevated highly elevated BNP of around 17,000. Does have history of chronic kidney disease stage IV with baseline creatinine around 2.5 present creatinine is 3.97 and patient is also hyponatremic. REVIEW OF SYSTEMS: CONSTITUTIONAL: No fever, no malaise, no fatigue. HEENT: No recent visual problems or hearing problems. Denied any sore throat. CARDIOVASCULAR: No chest pain, orthopnea, PND, no palpitations, no syncope. PULMONARY: As mentioned in HPI GASTROINTESTINAL: No diarrhea, no nausea, no vomiting, no abdominal pain. NEUROLOGICAL: No headaches, no weakness, no numbness. HEMATOLOGICAL: Denies any bleeding or petechiae. GENITOURINARY: Denies any burning micturition, frequency, or urgency. MUSCULOSKELETAL/RHEUMATOLOGICAL: Denies any joint pain, swelling, or any muscle pain. ENDOCRINE: Denies any polyuria or polydipsia. The rest of the 14-point review of systems is negative. PHYSICAL EXAMINATION: GENERAL: The patient is alert and oriented x3, not in any acute distress. Well developed, well nourished. HEENT: Pupils are round and equally reacting to light. EOMI. No scleral icterus. No conjunctival pallor. Normocephalic, atraumatic. No pharyngeal erythema. No thyromegaly. CARDIOVASCULAR: S1 and S2 present. No murmurs, rubs, or gallops. PULMONARY: Chest is clear to auscultation, no wheezing or crackles. ABDOMEN: Soft, nontender, nondistended, normoactive bowel sounds. No palpable organomegaly. MUSCULOSKELETAL: No joint swelling or deformity. EXTREMITIES: No cyanosis, clubbing, extensive bilateral pedal edema extending up to mid thigh region NEUROLOGICAL: Gross neurological examination did not reveal any focal deficits. SKIN: No rashes. Assessment and plan -Congestive heart failure chronic diastolic dysfunction with acute exacerbation, patient was started on the Lasix 40 mg twice a day may need a higher dose considering his chronic kidney disease but will monitor today, input and output measurement. Low possibility of pneumonia despite of leukocytosis we'll obtain for calcitonin level. And Lasix will be discontinued -Hypervolemic hyponatremia secondary to start failure expected to improve with the Lasix nephrology is following the patient -Leukocytosis reactive in nature -History of atrial fibrillation rate controlled probably proximal A. fib continue with home medications along with Eliquis 2.5 bid -history of DVT Heparin coronary artery disease -Sleep apnea continue CPAP machine -Chronic kidney disease stage IV secondary to diabetic nephropathy -Type 2 diabetes mellitus hold off on oral diabetic medications continue with the insulin regimen along with sliding scale DVT prophylaxis: Patient is on anticoagulation Past Medical History Past Medical History: Atrial Fibrillation, COPD, Diabetes Mellitus, Deep Vein Thrombosis (DVT), Eye Disorder, Hyperlipidemia, Hypertension, Myocardial Infarction (IN), Osteoarthritis (OA), Renal Disease, Sleep Apnea/CPAP/BIPAP Additional Past Medical History / Comment(s): 2016 sepsis, severe back pain, hx bacteremia, DDD, renal cysts being followed by Dr. 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 Past Psychological History: No Psychological Hx Reported Smoking Status: Never smoker Past Alcohol Use History: Rare Past Drug Use History: Marijuana - Past Family History Mother Family Medical History: CVA/TIA, Deep Vein Thrombosis (DVT) Additional Family Medical History / Comment(s): Mother is 92 yrs old. She had a CVA which left her with R sided paralysis. Father Family Medical History: Cancer Additional Family Medical History / Comment(s): Father is . Medications and Allergies Home Medications Medication Instructions Recorded Confirmed Type Aspirin 81 mg PO HS 11/05/14 12/06/22 History Simvastatin [Zocor] 20 mg PO HS 11/05/14 12/06/22 History allopurinoL [Zyloprim] 100 mg PO BID 05/04/16 12/06/22 History Cinnamon Bark [Cinnamon] 500 mg PO DAILY 10/06/18 12/06/22 History Metoprolol Tartrate 25 mg PO HS 10/06/18 12/06/22 History Metoprolol Tartrate 50 mg PO DAILY 10/06/18 12/06/22 History Ergocalciferol (Vitamin D2) 1,250 mcg PO MOWEFR@209911/17/22 12/06/22 History [Drisdol (50,000 Iu)] Melatonin 5 mg PO HS 11/17/22 12/06/22 History calcitrioL [Calcitriol] 0.5 mcg PO SUTH@209911/17/22 12/06/22 History Acetaminophen Tab [Tylenol] 650 mg PO Q6HR PRN tab 11/22/22 12/06/22 Rx Albuterol Inhaler [Ventolin Hfa 2 puff INHALATION RT-QID PRN #1 11/22/22 12/06/22 Rx Inhaler] each Apixaban [Eliquis] 2.5 mg PO BID #60 tab 11/22/22 12/06/22 Rx Furosemide [Lasix] 40 mg PO BID@0900,1600 #60 tab 11/22/22 12/06/22 Rx Linagliptin [Tradjenta] 5 mg PO HS #30 tab 11/22/22 12/06/22 Rx Sulfamethoxazole/Trimethoprim 1 tab PO BID 12/06/22 12/06/22 History [Bactrim SS 400-80 mg] Allergies Allergy/AdvReac Type Severity Reaction Status Date / Time No Known Allergies Allergy Verified 12/06/22 06:46 Physical Exam Vitals: Vital Signs Temp Pulse Pulse Resp BP BP Pulse Ox 12/06/22 08:00 97.6 F 72 18 145/71 92 L 12/06/22 07:13 96.9 F L 12/06/22 07:00 64 16 129/75 94 L 12/06/22 06:00 73 16 123/71 95 12/06/22 05:00 77 18 137/73 94 L 12/06/22 04:00 119/76 94 L 12/06/22 03:00 89 18 105/68 12/06/22 02:00 98 18 107/68 12/06/22 01:15 101 H 23 119/62 93 L 12/06/22 01:00 96 20 128/71 94 L 12/06/22 00:45 112 H 22 126/63 92 L 12/06/22 00:34 94 L 12/06/22 00:30 29 H 125/84 12/06/22 00:15 92 28 H 136/76 12/06/22 00:14 103 H 26 H 136/76 12/06/22 00:10 102 H 24 136/76 12/06/22 00:00 92 2 L 140/105 12/05/22 23:28 98.4 F 118 H 26 H 146/78 Intake and Output 12/05/22 12/06/22 12/06/22 22:59 06:59 14:59 Output Total 800 Balance -800 Output: Urine 800 Other: Voiding Method Indwelling Catheter Weight 127.006 kg Results CBC & Chem 7: 12/06/22 11:27 12/05/22 23:46 Labs: Abnormal Lab Results - Last 24 Hours (Table) 12/05/22 12/05/22 12/05/22 Range/Units 23:46 23:46 23:46 WBC 21.6 H (3.8-10.6) k/uL RBC 4.15 L (4.30-5.90) m/uL Hgb 12.3 L (13.0-17.5) gm/dL Hct 38.8 L (39.0-53.0) % Neutrophils # 19.8 H (1.3-7.7) k/uL Lymphocytes # 0.5 L (1.0-4.8) k/uL PT 12.6 H (9.0-12.0) sec INR 1.2 H (<1.2) Sodium 127 L (137-145) mmol/L Chloride 88 L (98-107) mmol/L BUN 69 H (9-20) mg/dL Creatinine 3.97 H (0.66-1.25) mg/dL Glucose 134 H (74-99) mg/dL POC Glucose (mg/dL) (70-110) mg/dL Troponin I (0.000-0.034) ng/mL Total Protein 5.8 L (6.3-8.2) g/dL Albumin 2.7 L (3.5-5.0) g/dL Urine Protein (Negative) Urine Glucose (UA) (Negative) Urine Blood (Negative) Urine RBC (0-5) /hpf Urine Mucus (None) /hpf 12/05/22 12/06/22 12/06/22 Range/Units 23:46 00:03 02:50 WBC (3.8-10.6) k/uL RBC (4.30-5.90) m/uL Hgb (13.0-17.5) gm/dL Hct (39.0-53.0) % Neutrophils # (1.3-7.7) k/uL Lymphocytes # (1.0-4.8) k/uL PT (9.0-12.0) sec INR (<1.2) Sodium (137-145) mmol/L Chloride (98-107) mmol/L BUN (9-20) mg/dL Creatinine (0.66-1.25) mg/dL Glucose (74-99) mg/dL POC Glucose (mg/dL) 153 H (70-110) mg/dL Troponin I 0.714 H* (0.000-0.034) ng/mL Total Protein (6.3-8.2) g/dL Albumin (3.5-5.0) g/dL Urine Protein 3+ H (Negative) Urine Glucose (UA) 1+ H (Negative) Urine Blood Moderate H (Negative) Urine RBC 91 H (0-5) /hpf Urine Mucus Rare H (None) /hpf 12/06/22 Range/Units 11:27 WBC 24.0 H (3.8-10.6) k/uL RBC 3.92 L (4.30-5.90) m/uL Hgb 12.1 L (13.0-17.5) gm/dL Hct 37.0 L (39.0-53.0) % Neutrophils # 21.6 H (1.3-7.7) k/uL Lymphocytes # (1.0-4.8) k/uL PT (9.0-12.0) sec INR (<1.2) Sodium (137-145) mmol/L Chloride (98-107) mmol/L BUN (9-20) mg/dL Creatinine (0.66-1.25) mg/dL Glucose (74-99) mg/dL POC Glucose (mg/dL) (70-110) mg/dL Troponin I (0.000-0.034) ng/mL Total Protein (6.3-8.2) g/dL Albumin (3.5-5.0) g/dL Urine Protein (Negative) Urine Glucose (UA) (Negative) Urine Blood (Negative) Urine RBC (0-5) /hpf Urine Mucus (None) /hpf
[2022-12-06 11:51] LABS: Calcium 8.2 mg/dL (8.4-10.2)
[2022-12-06 11:53] LABS: INR 1.4 (<1.2); Partial Thromboplastin Time 91.8 sec (22.0-30.0); Prothrombin Time 14.1 sec (9.0-12.0)
[2022-12-06] MEDS ORDERED: TOLVAPTAN 15 MG 1/2 TABLET PO ONE (12:00)
[2022-12-06] MEDS: FAMOTIDINE 20 MG/2 ML VIAL IV SCH (12:27)
[2022-12-06] MEDS: METOPROLOL TARTRATE 50 MG TAB PO SCH (12:27)
--- NOTE | 2022-12-06 12:45 | CONS ---
CONSULTATION HISTORY OF PRESENT ILLNESS: This is a 72-year-old gentleman, who apparently has a known history of atrial fibrillation, some diastolic dysfunction, normal systolic function, who was recently discharged from the hospital about 3 weeks ago, comes into the hospital with altered mental status, also there was concern for UTI. His white count is elevated, and then troponin was also mildly elevated; therefore, I was asked to see him. The patient has chronic atrial fibrillation, hypertension, COPD, previous DVT, and hyperlipidemia. At the time of my evaluation, he is somewhat lethargic but answers questions. He is unable to give me much history. His troponin suggests mild elevation, but the possibility of this being related to sepsis is high. His troponin is 0.7. An additional troponin is pending. His BNP is also elevated at 17,000 units. His white count is significantly elevated at 24,000. He had blood cultures already ordered. Prognosis remains somewhat guarded. He was seen by Cardiology during his last admission in the second or third week of October. Echo at that time revealed systolic function. Enlarged right ventricle was noted without pulmonary hypertension. There was some diastolic dysfunction as well. The patient has been seen by Nephrology. He is known to have chronic kidney disease, stage 4, secondary to diabetes. He was on a Lasix drip last hospitalization, but at this time, from a Nephrology standpoint, plan is to continue IV Lasix and monitor him closely. His troponin profile does not suggest a myocardial injury. PAST MEDICAL HISTORY: 1. Chronic atrial fibrillation. 2. Diabetes with CKD. 3. COPD. 4. Hypertension. 5. Hyperlipidemia. 6. History of obstructive sleep apnea. PHYSICAL EXAMINATION: VITAL SIGNS: Blood pressure is 130/70. Pulse rate is 70 to 90, irregular. HEENT: Unremarkable. Fundus was not examined by me. NECK: Supple. There is JVD of 1 cm. No carotid bruit. HEART: Reveals S1 and S2 with distant heart sounds. Irregularity in rhythm noted. Short systolic murmur noted. LUNGS: Reveal diminished air entry. ABDOMEN: Soft. EXTREMITIES: Lower extremities reveal bilateral edema. CENTRAL NERVOUS SYSTEM: Grossly, no focal deficits. There is generalized weakness. IMPRESSION: 1. Probable sepsis of unclear etiology. Workup in progress. 2. Diabetes with chronic kidney disease. 3. Hyperlipidemia. 4. Hypertension. 5. Chronic atrial fibrillation. RECOMMENDATIONS: The patient's troponin elevation does not suggest myocardial injury. However, we will continue heparin and check an additional troponin level, and further management from a Nephrology standpoint will be by Dr. Armenta. Prognosis remains guarded for this patient. I would recommend that we resume all his home medications, and we will check another BNP tomorrow morning and await results of the blood cultures. Overall prognosis remains guarded. MMDANIELL / IJN: [id number] /
[2022-12-06 16:35] LABS: Glucose,Whole Blood 144 mg/dL (70-110)
[2022-12-06 20:32] LABS: Glucose,Whole Blood 153 mg/dL (70-110)
[2022-12-06] MEDS: ALBUTEROL HFA INHALER INHALATION PRN (21:08)
[2022-12-06] MEDS: METOPROLOL TARTRATE 25 MG TAB PO SCH (22:32)
[2022-12-06] MEDS: ASPIRIN 81 MG PO SCH (22:32)
[2022-12-06] MEDS: ATORVASTATIN 10 MG TAB PO SCH (22:32)
[2022-12-06] MEDS: APIXABAN 2.5 MG TABLET PO SCH (22:32)
[2022-12-06] MEDS: FUROSEMIDE 10 MG/ML 4 ML VIAL IV SCH (22:32)
[2022-12-07] MEDS ORDERED: VANCOMYCIN 2,000 MG in SODIUM CHLORIDE 0.9% 500 ML 500 ML IVPB ONE ×4 (06:00)
[2022-12-07 06:04] LABS: Glucose,Whole Blood 149 mg/dL (70-110)
[2022-12-07 06:10] LABS: Basophils % (A) 0 %; Eosinophils # (A) 0.1 k/uL (0-0.7); Eosinophils % (A) 1 %; HGB 11.6 gm/dL (13.0-17.5); Lymphocytes % (A) 6 %; MCH 29.8 pg (25.0-35.0); MCHC 31.5 g/dL (31.0-37.0); MCV 94.7 fL (80.0-100.0); Mean Platelet Volume 7.8; Monocytes # (A) 0.9 k/uL (0-1.0); Monocytes % (A) 5 %; Neutrophils # (A) 15.6 k/uL (1.3-7.7); Neutrophils % (A) 87 %; Platelet Count 286 k/uL (150-450); RBC 3.91 m/uL (4.30-5.90); RDW 14.6 % (11.5-15.5); WBC 18.1 k/uL (3.8-10.6)
[2022-12-07 06:19] LABS: Calcium 8.2 mg/dL (8.4-10.2)
[2022-12-07] MEDS: FUROSEMIDE 10 MG/ML 4 ML VIAL IV SCH ×2 (09:35→20:53)
[2022-12-07] MEDS: METOPROLOL TARTRATE 50 MG TAB PO SCH (09:35)
[2022-12-07] MEDS: APIXABAN 2.5 MG TABLET PO SCH ×2 (09:36→20:53)
[2022-12-07] MEDS: POTASSIUM CHLORIDE ER 20 MEQ TAB.ER PO SCH ×2 (09:36→13:03)
[2022-12-07] MEDS: FAMOTIDINE 20 MG/2 ML VIAL IV SCH (09:42)
--- NOTE | 2022-12-07 11:19 | P.PN ---
Subjective Patient is seen for follow-up for acute kidney injury and chronic kidney disease. Patient was admitted to the hospital with mental status changes. Renal function is about the same as on discharge from last hospitalization. Serum creatinine improved from about 4.0 on 11/22/2022 to 3.76 today. Patient remains on IV Lasix. Blood cultures were positive for MRSA [place] at currently maintained on cefazolin. Good urine output. 4 L documented for last 24 hours. Objective - Vital Signs Vital signs: Vital Signs Temp 97.3 F L 12/07/22 04:00 Pulse 69 12/07/22 08:00 Resp 16 12/07/22 08:00 BP 150/80 12/07/22 08:00 Pulse Ox 96 12/07/22 08:56 FiO2 Intake & Output 12/06/22 12/07/22 12/07/22 18:59 06:59 18:59 Intake Total 310.413 240 120 Output Total 2180 1900 750 Balance -1869.587 -1660 -630 Weight 127.006 kg 129.8 kg Intake: Intake, IV Titration 192.413 Amount Heparin Sod,Pork in 0.45% 192.413 NaCl 25,000 unit In 0.45 % NaCl 1 250ml.bag @ 18 UNITS/KG/HR 22.861 mls/hr IV .[id number] [facility] Rx#: [id number] Oral 118 240 120 Output: Urine 2180 1900 750 Other: Voiding Method Indwelling Catheter Urinal # Voids 1 - Exam atient is awake, comfortable, no acute distress. He is alert and oriented 3 Examination of the heart S1 and S2 Examination of the lungs bilateral breath sounds are heard Abdomen is soft nontender Examination of lower extremity shows chronic edema with chronic skin changes [employer] exam grossly intact - Labs CBC & Chem 7: 12/07/22 05:56 12/07/22 05:56 Labs: Abnormal Lab Results - Last 24 Hours (Table) 12/06/22 12/06/22 12/06/22 Range/Units 11:27 11:27 11:27 WBC 24.0 H (3.8-10.6) k/uL RBC 3.92 L (4.30-5.90) m/uL Hgb 12.1 L (13.0-17.5) gm/dL Hct 37.0 L (39.0-53.0) % Neutrophils # 21.6 H (1.3-7.7) k/uL PT 14.1 H (9.0-12.0) sec INR 1.4 H (<1.2) APTT 91.8 H (22.0-30.0) sec Sodium 130 L (137-145) mmol/L Potassium 3.0 L (3.5-5.1) mmol/L Chloride 93 L (98-107) mmol/L BUN 68 H (9-20) mg/dL Creatinine 3.86 H (0.66-1.25) mg/dL Glucose 129 H (74-99) mg/dL POC Glucose (mg/dL) (70-110) mg/dL Calcium 8.2 L (8.4-10.2) mg/dL Troponin I (0.000-0.034) ng/mL Procalcitonin (0.02-0.09) ng/mL 12/06/22 12/06/22 12/06/22 Range/Units 11:27 11:27 11:43 WBC (3.8-10.6) k/uL RBC (4.30-5.90) m/uL Hgb (13.0-17.5) gm/dL Hct (39.0-53.0) % Neutrophils # (1.3-7.7) k/uL PT (9.0-12.0) sec INR (<1.2) APTT (22.0-30.0) sec Sodium (137-145) mmol/L Potassium (3.5-5.1) mmol/L Chloride (98-107) mmol/L BUN (9-20) mg/dL Creatinine (0.66-1.25) mg/dL Glucose (74-99) mg/dL POC Glucose (mg/dL) 146 H (70-110) mg/dL Calcium (8.4-10.2) mg/dL Troponin I 0.858 H* (0.000-0.034) ng/mL Procalcitonin 0.87 H (0.02-0.09) ng/mL 12/06/22 12/06/22 12/06/22 Range/Units 16:17 16:33 20:26 WBC (3.8-10.6) k/uL RBC (4.30-5.90) m/uL Hgb (13.0-17.5) gm/dL Hct (39.0-53.0) % Neutrophils # (1.3-7.7) k/uL PT (9.0-12.0) sec INR (<1.2) APTT (22.0-30.0) sec Sodium (137-145) mmol/L Potassium (3.5-5.1) mmol/L Chloride (98-107) mmol/L BUN (9-20) mg/dL Creatinine (0.66-1.25) mg/dL Glucose (74-99) mg/dL POC Glucose (mg/dL) 144 H 153 H (70-110) mg/dL Calcium (8.4-10.2) mg/dL Troponin I 0.838 H* (0.000-0.034) ng/mL Procalcitonin (0.02-0.09) ng/mL 12/07/22 12/07/22 12/07/22 Range/Units 05:56 05:56 06:03 WBC 18.1 H (3.8-10.6) k/uL RBC 3.91 L (4.30-5.90) m/uL Hgb 11.6 L (13.0-17.5) gm/dL Hct 37.0 L (39.0-53.0) % Neutrophils # 15.6 H (1.3-7.7) k/uL PT (9.0-12.0) sec INR (<1.2) APTT (22.0-30.0) sec Sodium 129 L (137-145) mmol/L Potassium 3.0 L (3.5-5.1) mmol/L Chloride 95 L (98-107) mmol/L BUN 67 H (9-20) mg/dL Creatinine 3.76 H (0.66-1.25) mg/dL Glucose 121 H (74-99) mg/dL POC Glucose (mg/dL) 149 H (70-110) mg/dL Calcium 8.2 L (8.4-10.2) mg/dL Troponin I (0.000-0.034) ng/mL Procalcitonin (0.02-0.09) ng/mL Microbiology - Last 24 Hours (Table) 12/07/22 10:26 Blood Culture Gram Stain - Preliminary Blood 12/06/22 19:19 Blood Culture - Final Blood 12/05/22 23:46 Blood Culture Gram Stain - Preliminary Blood Blood Culture - Preliminary Presumptive Staph aureus 12/05/22 23:45 Blood Culture Gram Stain - Preliminary Blood Blood Culture - Preliminary Staphylococcus aureus 12/05/22 23:46 Blood Culture - Final Blood 12/05/22 23:46 Blood Culture - Final Blood Assessment and Plan Assessment: 1. 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 Serum creatinine staying at about 3.9-4 mg/dL from last admission. No hydronephrosis noted on ultrasound during the last admission. Left kidney wasn't assessed due to patient's position and size. Renal function is improving 2. Chronic diastolic CHF with mitral and tricuspid regurgitation and [id number] aortic regurgitation, currently stable and improved from last admission about 1 month ago. 3. CK D mineral bone disorder maintained on calcitriol 4. Hyponatremia with volume overload. Status post [place] 5. Staph aureus bacteremia maintained on cefazolin Plan: Continue with IV Lasix Monitor urine output Repeat labs in a.m. continue with antibiotics Avoid vancomycin if possible.
[2022-12-07 11:42] LABS: Glucose,Whole Blood 150 mg/dL (70-110)
--- NOTE | 2022-12-07 16:40 | P.PN ---
Progress Note - Text Progress Note Date: 12/07/22 This is a pleasant 72-year-old patient who follows with Dr. Holder. Chronic stable medical conditions include atrial fibrillation, COPD, diabetes, hyperlipidemia, CHF-preserved EF hypertension, osteoarthritis, CK D, sleep apnea does not use CPAP, gout, lymphedema arthritis chronic lymphedema - follows with a physician for pumping out of the area. Patient came in with comments of altered mental status shortness of breath and the bilateral pedal edema. Patient past medical history significant for chronic diastolic dysfunction was on diuretics at home. Patient is found to be in heart failure exacerbation chest x-ray showed significant pulmonary edema with bilateral pleural effusions. Patient doesn't have any fever did have leukocytosis of 21,600. Patient is alert oriented 3. Patient was admitted and was treated for CHF as well as pneumonia believing that patient has atelectasis or pneumonia and patient was receiving vancomycin. Patient does drink alcohol quite a bit but not a daily basis. Patient has elevated highly elevated BNP of around 17,000. Does have history of chronic kidney disease stage IV with baseline creatinine around 2.5 present creatinine is 3.97 and patient is also hyponatremic. 12/07/2022: I assumed care of the patient today. Appetite is fair. No cough. Had a bowel movement. Patient does state he had a fever at home. Up in a chair today. Blood cultures positive for Staphylococcus aureus. Seen by ID. Vancomycin changed over to nafcillin. Denies any new urinary symptoms. Active Medications Albuterol Sulfate (Albuterol Hfa Inhaler) 2 puff INHALATION RT-QID PRN PRN Reason: Shortness Of Breath Or Wheezing Last Admin: 12/06/22 21:08 Dose: 2 puff Apixaban (Apixaban 2.5 Mg Tablet) 2.5 mg PO BID [facility]; Protocol Last Admin: 12/07/22 09:36 Dose: 2.5 mg Aspirin (Aspirin 81 Mg) 81 mg PO HS [facility] Last Admin: 12/06/22 22:32 Dose: 81 mg Atorvastatin Calcium (Atorvastatin 10 Mg Tab) 10 mg PO HS [facility] Last Admin: 12/06/22 22:32 Dose: 10 mg Calcitriol (Calcitriol 0.25 Mcg Cap) 0.5 mcg PO SUTH@2100 [facility] Famotidine (Famotidine 20 Mg Tab) 20 mg PO DAILY [facility] Furosemide (Furosemide 10 Mg/Ml 4 Ml Vial) 40 mg IV Q12HR [facility] Last Admin: 12/07/22 09:35 Dose: 40 mg Nafcillin Sodium 2 gm/ (Dextrose/Water) 100 mls @ 50 mls/hr IVPB Q4HR [facility]; Protocol Metoprolol Tartrate (Metoprolol Tartrate 25 Mg Tab) 25 mg PO HS [facility] Last Admin: 12/06/22 22:32 Dose: 25 mg Metoprolol Tartrate (Metoprolol Tartrate 50 Mg Tab) 50 mg PO DAILY [facility] Last Admin: 12/07/22 09:35 Dose: 50 mg Past medical history to include: Atrial fibrillation, COPD, diabetes, DVT, hypertension, hyperlipidemia, RI, osteoarthritis, CKD, obstructive sleep apnea does not use CPAP, DJD, legally blind bilaterally, GERD, varicose veins, lymphedema back surgery. CHF with diastolic dysfunction Social history: Lives with his . Does use a 4W walker. Smoked 2 packs a day for 45 years stopped in 2016. Occasional marijuana and CBD ordered. Alcohol rarely. Physical examination: VITAL SIGNS: 97.3, 69, 16, 150/80, 94% on 4 L GENERAL: Up in a recliner. Bruising. EYES: Pupils equal. Conjunctiva normal. HEENT: External appearance of nose and ears normal, oral cavity grossly normal. NECK: JVD possibly raised; masses not palpable. HEART: First and second heart sounds are normal; edema present. LUNGS:[ Respiratory rate increased; decreased breath sounds. ABDOMEN: Soft, nontender, liver spleen not palpable, no masses palpable. PSYCH: Alert and oriented x3; mood and affect normal. MUSCULOSKELETAL:No Clubbing/cyanosis;muscles-grossly intact. OA EXTREMITIES: Stockings lower extremity LYMPHATICS: Lymphedema lower extremity INVESTIGATIONS, reviewed in the clinical context: 12/07/2022: White count 18.1 hemoglobin 11.6 platelets 26 sodium 129 potassium 3 BUN [address] brain: Cerebral atrophy Previous labs 11/19/2022: Potassium 3.6. 49 creatinine 3.38 2-D echocardiogram: [11/17/2022 ] Normal LV size and function. Mild to moderate AR. Assessment and plan: -Sepsis, with positive blood culture staph aureus, POA, slow to respond Started on IV vancomycin. Change to IV nafcillin -Acute hypoxic respiratory failure from CHF Oxygen supplement -Acute on chronic congestive heart failure exacerbation. From diastolic dysfunction. Preserved EF.: Slow to respond Lasix 40 mg IV every 12. Strict I's and O's. Fluid restriction 1500 mL a day. Cardiology following -Chronic kidney disease stage IV secondary to diabetic and kidney disease and cardiorenal syndrome. Creatinine 3.9 from recently -Persistent atrial fibrillation, rate controlled Lopressor. Eliquis. - COPD in a previous smoker Albuterol 4 puffs 4 times a day when necessary. Symbicort 60/4.5 one puff twice a day -Diabetes mellitus type 2, Diet controlled. Follow Accu-Cheks with sliding scale -Hyperlipidemia Zocor -Essential hypertension Lopressor. -Primary osteoarthritis Tylenol as needed -Obstructive sleep apnea does not use CPAP -Chronic lower extremity lymphedema Continue with stockings -Chronic gout Allopurinol 100 mg twice a day -Full code IV Lasix. Add Symbicort. IV nafcillin started. Vancomycin discontinued. Discussed with patient.
[2022-12-07 16:59] LABS: Glucose,Whole Blood 234 mg/dL (70-110)
[2022-12-07] MEDS: NAFCILLIN 2 GM in DEXTROSE 5% IN WATER 100 ML IVPB SCH ×4 (17:29→20:53)
[2022-12-07 20:22] LABS: Glucose,Whole Blood 182 mg/dL (70-110)
[2022-12-07] MEDS: ASPIRIN 81 MG PO SCH (20:53)
[2022-12-07] MEDS: ATORVASTATIN 10 MG TAB PO SCH (20:53)
[2022-12-07] MEDS: MELATONIN 5 MG TABLET PO SCH (20:53)
[2022-12-07] MEDS: METOPROLOL TARTRATE 25 MG TAB PO SCH (20:53)
[2022-12-07] MEDS: allopurinoL 100 MG TAB PO SCH (20:53)
[2022-12-07] MEDS: SYMBICORT 80-4.5 MCG INHALER INHALATION SCH (21:11)
[2022-12-07] MEDS: ALBUTEROL HFA INHALER INHALATION PRN (21:11)
--- NOTE | 2022-12-07 21:59 | PN ---
PROGRESS NOTE Mr. Johnson is doing remarkably better overall. His white count is down. His breathing is easier. Potassium is still low. We are supplementing it. He has Staphylococcus aureus bacteremia. Troponin elevation is not suggestive of myocardial injury. I am recommending that his antibiotics be continued and further management per the admitting team. I will see him as needed. No new significant suggestions. Physical exam is unchanged. Vital signs are stable. MMODL / IJN: [id number] /
--- NOTE | 2022-12-07 22:35 | P.CONS ---
History of Present Illness - Reason for Consult Consult date: 12/07/22 Positive blood culture Requesting physician: Lesley Maxwell - Chief Complaint Increasing shortness of breath x days - History of Present Illness Patient is a 72-year-old male with a past medical history significant for atrial fibrillation COPD diabetes mellitus DVT hypertension hyperlipidemia renal insufficiency was brought into the ER 2 nights ago by EMS for evaluation of mental status changes apparently the patient symptom has been going on for the day the patient was brought into the hospital patient denies any high-grade fever or any chills has been complaining of mostly shortness of breath on minimal exertion and even at rest patient denies having any chest pain or any significant cough or sputum production some nausea but no vomiting no abdominal pain or any diarrhea on presentation to the hospital the patient was afebrile and no fever has been recorded subsequently patient did have white count 21,000 which is down to 18.1 today he did have elevated BUN and creatinine urine dip shows hematuria but no pyuria influenza RSV and COVID testing was negative patient did have a chest x-ray improvement in the pulmonary congestion and his facial edema subsegmental atelectasis patient blood cultures came back positive for gram-positive cocci patient has been started on vancomycin that was switched to cefazolin this morning infectious disease was consulted for further management of antibiotic therapy Review of Systems Positive point has been mentioned in the HPI rest of the systems are negative Past Medical History Past Medical History: Atrial Fibrillation, COPD, Diabetes Mellitus, Deep Vein Thrombosis (DVT), Eye Disorder, Hyperlipidemia, Hypertension, Myocardial Infarc tion (MD), Osteoarthritis (OA), Renal Disease, Sleep Apnea/CPAP/BIPAP Additional Past Medical History / Comment(s): 2016 sepsis, severe back pain, hx bacteremia, DDD, renal cysts being followed by Dr. 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 Smoking Status: Former smoker - Past Family History Mother Family Medical History: CVA/TIA, Deep Vein Thrombosis (DVT) Additional Family Medical History / Comment(s): Mother is 92 yrs old. She had a CVA which left her with R sided paralysis. Father Family Medical History: Cancer Additional Family Medical History / Comment(s): Father is . Medications and Allergies Home Medications Medication Instructions Recorded Confirmed Type Aspirin 81 mg PO HS 11/05/14 12/06/22 History Simvastatin [Zocor] 20 mg PO HS 11/05/14 12/06/22 History allopurinoL [Zyloprim] 100 mg PO BID 05/04/16 12/06/22 History Cinnamon Bark [Cinnamon] 500 mg PO DAILY 10/06/18 12/06/22 History Metoprolol Tartrate 25 mg PO HS 10/06/18 12/06/22 History Metoprolol Tartrate 50 mg PO DAILY 10/06/18 12/06/22 History Ergocalciferol (Vitamin D2) 1,250 mcg PO MOWEFR@209911/17/22 12/06/22 History [Drisdol (50,000 Iu)] Melatonin 5 mg PO HS 11/17/22 12/06/22 History calcitrioL [Calcitriol] 0.5 mcg PO SUTH@209911/17/22 12/06/22 History Acetaminophen Tab [Tylenol] 650 mg PO Q6HR PRN tab 11/22/22 12/06/22 Rx Albuterol Inhaler [Ventolin Hfa 2 puff INHALATION RT-QID PRN #1 11/22/22 12/06/22 Rx Inhaler] each Apixaban [Eliquis] 2.5 mg PO BID #60 tab 11/22/22 12/06/22 Rx Linagliptin [Tradjenta] 5 mg PO HS #30 tab 11/22/22 12/06/22 Rx Potassium Chloride ER [K-Dur 20] 20 meq PO DAILY #30 tab 12/14/22 Rx Torsemide [Demadex] 40 mg PO DAILY #60 tab 12/14/22 Rx ceFAZolin [Kefzol] 2 gm IVP Q12HR #84 each 12/14/22 Rx Allergies Allergy/AdvReac Type Severity Reaction Status Date / Time No Known Allergies Allergy Verified 12/06/22 06:46 Physical Exam Vitals: Vital Signs Temp Pulse Resp BP Pulse Ox 12/07/22 08:56 96 12/07/22 08:00 69 16 150/80 94 L 12/07/22 04:00 97.3 F L 75 18 124/84 95 12/07/22 02:00 71 18 12/07/22 00:00 98.2 F 71 18 132/67 92 L 12/06/22 20:00 98.3 F 80 18 137/77 93 L 12/06/22 16:00 98 F 66 18 149/72 95 12/06/22 12:00 97.8 F 66 18 159/75 94 L Intake and Output 12/06/22 12/07/22 12/07/22 22:59 06:59 14:59 Intake Total 358 120 Output Total 1350 1150 750 Balance -992 1150 -630 Intake: Oral 358 120 Output: Urine 1350 1150 750 Other: Voiding Method Urinal Urinal # Voids 1 1 Weight 127.006 kg 129.8 kg GENERAL DESCRIPTION: Elderly male lying in bed, no distress. No tachypnea or accessory muscle of respiration use. HEENT: Shows Pallor , no scleral icterus. Oral mucous membrane is dry. No pharyngeal erythema or thrush NECK: Trachea central, no thyromegaly. LUNGS: Unlabored breathing. Decreased breath sounds at the base HEART: S1, S2, regular rate and rhythm. No loud murmur ABDOMEN: Soft, no tenderness , guarding or rigidity, no organomegaly EXTREMITIES: Mild edema feet. SKIN: No rash, no masses palpable. NEUROLOGICAL: The patient is awake, alert, oriented x3, mood and affect normal. Results CBC & Chem 7: 12/10/22 07:01 12/12/22 07:23 Labs: Abnormal Lab Results - Last 24 Hours (Table) 12/06/22 12/06/22 12/06/22 Range/Units 11:27 11:27 11:27 WBC 24.0 H (3.8-10.6) k/uL RBC 3.92 L (4.30-5.90) m/uL Hgb 12.1 L (13.0-17.5) gm/dL Hct 37.0 L (39.0-53.0) % Neutrophils # 21.6 H (1.3-7.7) k/uL PT 14.1 H (9.0-12.0) sec INR 1.4 H (<1.2) APTT 91.8 H (22.0-30.0) sec Sodium 130 L (137-145) mmol/L Potassium 3.0 L (3.5-5.1) mmol/L Chloride 93 L (98-107) mmol/L BUN 68 H (9-20) mg/dL Creatinine 3.86 H (0.66-1.25) mg/dL Glucose 129 H (74-99) mg/dL POC Glucose (mg/dL) (70-110) mg/dL Calcium 8.2 L (8.4-10.2) mg/dL Troponin I (0.000-0.034) ng/mL Procalcitonin (0.02-0.09) ng/mL 12/06/22 12/06/22 12/06/22 Range/Units 11:27 11:27 11:43 WBC (3.8-10.6) k/uL RBC (4.30-5.90) m/uL Hgb (13.0-17.5) gm/dL Hct (39.0-53.0) % Neutrophils # (1.3-7.7) k/uL PT (9.0-12.0) sec INR (<1.2) APTT (22.0-30.0) sec Sodium (137-145) mmol/L Potassium (3.5-5.1) mmol/L Chloride (98-107) mmol/L BUN (9-20) mg/dL Creatinine (0.66-1.25) mg/dL Glucose (74-99) mg/dL POC Glucose (mg/dL) 146 H (70-110) mg/dL Calcium (8.4-10.2) mg/dL Troponin I 0.858 H* (0.000-0.034) ng/mL Procalcitonin 0.87 H (0.02-0.09) ng/mL 12/06/22 12/06/22 12/06/22 Range/Units 16:17 16:33 20:26 WBC (3.8-10.6) k/uL RBC (4.30-5.90) m/uL Hgb (13.0-17.5) gm/dL Hct (39.0-53.0) % Neutrophils # (1.3-7.7) k/uL PT (9.0-12.0) sec INR (<1.2) APTT (22.0-30.0) sec Sodium (137-145) mmol/L Potassium (3.5-5.1) mmol/L Chloride (98-107) mmol/L BUN (9-20) mg/dL Creatinine (0.66-1.25) mg/dL Glucose (74-99) mg/dL POC Glucose (mg/dL) 144 H 153 H (70-110) mg/dL Calcium (8.4-10.2) mg/dL Troponin I 0.838 H* (0.000-0.034) ng/mL Procalcitonin (0.02-0.09) ng/mL 12/07/22 12/07/22 12/07/22 Range/Units 05:56 05:56 06:03 WBC 18.1 H (3.8-10.6) k/uL RBC 3.91 L (4.30-5.90) m/uL Hgb 11.6 L (13.0-17.5) gm/dL Hct 37.0 L (39.0-53.0) % Neutrophils # 15.6 H (1.3-7.7) k/uL PT (9.0-12.0) sec INR (<1.2) APTT (22.0-30.0) sec Sodium 129 L (137-145) mmol/L Potassium 3.0 L (3.5-5.1) mmol/L Chloride 95 L (98-107) mmol/L BUN 67 H (9-20) mg/dL Creatinine 3.76 H (0.66-1.25) mg/dL Glucose 121 H (74-99) mg/dL POC Glucose (mg/dL) 149 H (70-110) mg/dL Calcium 8.2 L (8.4-10.2) mg/dL Troponin I (0.000-0.034) ng/mL Procalcitonin (0.02-0.09) ng/mL Microbiology - Last 24 Hours (Table) 12/07/22 10:26 Blood Culture Gram Stain - Preliminary Blood 12/06/22 19:19 Blood Culture - Final Blood 12/05/22 23:46 Blood Culture Gram Stain - Preliminary Blood Blood Culture - Preliminary Presumptive Staph aureus 12/05/22 23:45 Blood Culture Gram Stain - Preliminary Blood Blood Culture - Preliminary Staphylococcus aureus 12/05/22 23:46 Blood Culture - Final Blood 12/05/22 23:46 Blood Culture - Final Blood Assessment and Plan (1) Positive blood culture Current Visit: Yes Status: Acute Code(s): R78.81 - BACTEREMIA SNOMED Code(s): 883341865 Plan: 1patient with MSSA bacteremia in this patient presented to hospital with mental status changes also have complaint of increasing shortness of breath patient currently do not have any open wound or cellulitis chest x-ray was suggestive of pneumonia urine has been negative for any pyuria and abdominal soft examination with concern for possible endovascular source. 2patient with renal insufficiency high risk of nephrotoxicity from vancomycin which has been discontinued 3blood cultures will be repeated document clearance of bacteremia and we will check inflammatory markers 4check echocardiogram. 5discontinue cefazolin start the patient on Naficillin 2 g every 4 hours We will follow on clinical condition and cultures to further adjust medication if needed Thank you for this consultation we will follow the patient along with you Time with Patient: Greater than 30
[2022-12-08] MEDS: NAFCILLIN 2 GM in DEXTROSE 5% IN WATER 100 ML IVPB SCH ×14 (00:37→23:33)
[2022-12-08] MEDS: ACETAMINOPHEN TAB 500 MG TAB PO PRN ×2 (04:54→09:34)
[2022-12-08 06:03] LABS: Glucose,Whole Blood 182 mg/dL (70-110)
[2022-12-08] MEDS: SYMBICORT 80-4.5 MCG INHALER INHALATION SCH ×2 (07:52→21:20)
[2022-12-08] MEDS: ALBUTEROL HFA INHALER INHALATION PRN ×3 (07:52→15:28)
[2022-12-08 07:57] LABS: Calcium 8.2 mg/dL (8.4-10.2); Potassium 3.5 mmol/L (3.5-5.1)
[2022-12-08 08:03] LABS: Vancomycin,Random 20.8 ug/mL
[2022-12-08] MEDS: APIXABAN 2.5 MG TABLET PO SCH ×2 (09:26→21:26)
[2022-12-08] MEDS: FUROSEMIDE 10 MG/ML 4 ML VIAL IV SCH ×2 (09:26→21:26)
[2022-12-08] MEDS: METOPROLOL TARTRATE 50 MG TAB PO SCH (09:26)
[2022-12-08] MEDS: allopurinoL 100 MG TAB PO SCH ×2 (09:26→21:26)
[2022-12-08] MEDS: FAMOTIDINE 20 MG TAB PO SCH (09:26)
--- NOTE | 2022-12-08 10:15 | CA ---
Transthoracic Echo Report Name: Esteban Johnson Age: 72 Gender: M : 1950 Exam Date: 12/07/2022 14:03 Exam Location: [facility] Ht (in): 70 Wt (lb): 286 Ordering Physician: Art Malik MD Attending/Referring Phys: Fuel Cell Technician Nereida Cazares RDCS Procedure CPT: Indications: Bacteremia/endocarditis Cardiac Hx: Technical Quality: Fair Contrast 1: Total Dose (mL): Contrast 2: Total Dose (mL): MEASUREMENTS (Male / Female) Normal Values 2D ECHO LV Diastolic Diameter PLAX 6.0 cm 4.2 - 5.9 / 3.9 - 5.3 cm LV Systolic Diameter PLAX 4.4 cm IVS Diastolic Thickness 1.4 cm 0.6 - 1.0 / 0.6 - 0.9 cm LVPW Diastolic Thickness 1.2 cm 0.6 - 1.0 / 0.6 - 0.9 cm LV Relative Wall Thickness 0.4 DOPPLER AI Peak Velocity 393.3 cm/s AI Peak Gradient 61.9 mmHg AI Pressure Half Time 425.7 ms TR Peak Velocity 277.1 cm/s TR Peak Gradient 30.7 mmHg Right Ventricular Systolic Press 34.1 mmHg FINDINGS Left Ventricle Moderately increased left ventricular wall thickness. Normal left ventricular systolic function with no obvious regional wall motion abnormalities. Left ventricular ejection fraction is estimated at 50-55 %. Right Ventricle Right Atrium Left Atrium Mitral Valve [id number] mitral regurgitation. Mitral valve thickened. Aortic Valve Mild aortic regurgitation. Possible small vegetation on the aortic valve. Tricuspid Valve Structurally normal tricuspid valve. Mild tricuspid regurgitation. Pulmonic Valve Structurally normal pulmonic valve. Pericardium No pericardial effusion. Aorta CONCLUSIONS Normal biventricular dimension and systolic function An echo density was identified on the noncoronary cusp of the aortic valve very suspicious for vegetation Mild to moderate aortic insufficiency was identified Previewed by: Dr. Pedro Hall MD (Electronically Signed) Final Date: 08 December 2022 10:14
[2022-12-08 11:40] LABS: Glucose,Whole Blood 227 mg/dL (70-110)
--- NOTE | 2022-12-08 11:50 | P.PN ---
Progress Note - Text Progress Note Date: 12/08/22 This is a pleasant 72-year-old patient who follows with Dr. Holder. Chronic stable medical conditions include atrial fibrillation, COPD, diabetes, hyperlipidemia, CHF-preserved EF hypertension, osteoarthritis, CK D, sleep apnea does not use CPAP, gout, lymphedema arthritis chronic lymphedema - follows with a physician for pumping out of the area. Patient came in with comments of altered mental status shortness of breath and the bilateral pedal edema. Patient past medical history significant for chronic diastolic dysfunction was on diuretics at home. Patient is found to be in heart failure exacerbation chest x-ray showed significant pulmonary edema with bilateral pleural effusions. Patient doesn't have any fever did have leukocytosis of 21,600. Patient is alert oriented 3. Patient was admitted and was treated for CHF as well as pneumonia believing that patient has atelectasis or pneumonia and patient was receiving vancomycin. Patient does drink alcohol quite a bit but not a daily basis. Patient has elevated highly elevated BNP of around 17,000. Does have history of chronic kidney disease stage IV with baseline creatinine around 2.5 present creatinine is 3.97 and patient is also hyponatremic. 12/07/2022: I assumed care of the patient today. Appetite is fair. No cough. Had a bowel movement. Patient does state he had a fever at home. Up in a chair today. Blood cultures positive for Staphylococcus aureus. Seen by ID. Vancomycin changed over to nafcillin. Denies any new urinary symptoms. 12/08/2022: Up in a recliner. Complaining of discomfort in both the forearms. Wants to go home. Explained importance of staying here. Discussed with the patient and the at the bedside. Remains on IV Lasix. IV nafcillin. Eating some. In negative fluid balance. Active Medications Acetaminophen (Acetaminophen Tab 500 Mg Tab) 500 mg PO Q6HR PRN PRN Reason: Fever and/ or Pain Last Admin: 12/08/22 09:34 Dose: 500 mg Albuterol Sulfate (Albuterol Hfa Inhaler) 2 puff INHALATION RT-QID PRN PRN Reason: Shortness Of Breath Or Wheezing Last Admin: 12/08/22 07:52 Dose: 2 puff Allopurinol (Allopurinol 100 Mg Tab) 100 mg PO BID OWEN Last Admin: 12/08/22 09:26 Dose: 100 mg Apixaban (Apixaban 2.5 Mg Tablet) 2.5 mg PO BID [facility]; Protocol Last Admin: 12/08/22 09:26 Dose: 2.5 mg Aspirin (Aspirin 81 Mg) 81 mg PO [facility] Last Admin: 12/07/22 20:53 Dose: 81 mg Atorvastatin Calcium (Atorvastatin 10 Mg Tab) 10 mg PO HS [facility] Last Admin: 12/07/22 20:53 Dose: 10 mg Budesonide/Formoterol Fumarate (Symbicort 80-4.5 Mcg Inhaler) 1 puff INHALATION RT-BID [facility] Last Admin: 12/08/22 07:52 Dose: 1 puff Calcitriol (Calcitriol 0.25 Mcg Cap) 0.5 mcg PO SUTH@2100 OWEN Ergocalciferol (Ergocalciferol 1,250 Mcg (50,000 Iu) Capsule) 1,250 mcg PO MOWEFR@2100 [facility] Famotidine (Famotidine 20 Mg Tab) 20 mg PO DAILY [facility] Last Admin: 12/08/22 09:26 Dose: 20 mg Furosemide (Furosemide 10 Mg/Ml 4 Ml Vial) 40 mg IV Q12HR [facility] Last Admin: 12/08/22 09:26 Dose: 40 mg Nafcillin Sodium 2 gm/ (Dextrose/Water) 100 mls @ 50 mls/hr IVPB Q4HR [facility]; Protocol Last Admin: 12/08/22 09:26 Dose: 50 mls/hr Melatonin (Melatonin 5 Mg Tablet) 5 mg PO [facility] Last Admin: 12/07/22 20:53 Dose: 5 mg Metoprolol Tartrate (Metoprolol Tartrate 25 Mg Tab) 25 mg PO [facility] Last Admin: 12/07/22 20:53 Dose: 25 mg Metoprolol Tartrate (Metoprolol Tartrate 50 Mg Tab) 50 mg PO DAILY [facility] Last Admin: 12/08/22 09:26 Dose: 50 mg Past medical history to include: Atrial fibrillation, COPD, diabetes, DVT, hypertension, hyperlipidemia, ND, osteoarthritis, CKD, obstructive sleep apnea does not use CPAP, DJD, legally blind bilaterally, GERD, varicose veins, lymphedema back surgery. CHF with diastolic dysfunction Social history: Lives with his . Does use a 4W walker. Smoked 2 packs a day for 45 years stopped in 2016. Occasional marijuana and CBD ordered. Alcohol rarely. Physical examination: VITAL SIGNS: 97.8, 11, 16, 136 with 76, 94% room air GENERAL: Up in a recliner. Bruising. EYES: Pupils equal. Conjunctiva normal. HEENT: External appearance of nose and ears normal, oral cavity grossly normal. NECK: JVD possibly raised; masses not palpable. HEART: First and second heart sounds are normal; edema present. LUNGS:[ Respiratory rate increased; decreased breath sounds. ABDOMEN: Soft, nontender, liver spleen not palpable, no masses palpable. PSYCH: Alert and oriented x3; mood and affect normal. MUSCULOSKELETAL:No Clubbing/cyanosis;muscles-grossly intact. OA EXTREMITIES: Stockings lower extremity LYMPHATICS: Lymphedema lower extremity INVESTIGATIONS, reviewed in the clinical context: 2-D echocardiogram [12/07/2022] EF 50-55%. [id number] MR. 12/08/2022: Sodium 1:30 potassium 3.5 BUN 69 creatinine 3.63 12/07/2022: White count 18.1 hemoglobin 11.6 platelets 26 sodium 129 potassium 3 BUN [address] brain: Cerebral atrophy Previous labs 11/19/2022: Potassium 3.6. 49 creatinine 3.38 2-D echocardiogram: [11/17/2022 ] Normal LV size and function. Mild to moderate AR. Assessment and plan: -Sepsis, with positive blood culture staph aureus, POA, slow to respond IV nafcillin -Acute hypoxic respiratory failure from CHF: Better Oxygen supplement -Acute on chronic congestive heart failure exacerbation. From diastolic dysfunction. Preserved EF.: Slow to respond Lasix 40 mg IV every 12. Strict I's and O's. Fluid restriction 1500 mL a day. Cardiology following -Chronic kidney disease stage IV secondary to diabetic and kidney disease and cardiorenal syndrome. Creatinine 3.9 from recently -Persistent atrial fibrillation, rate controlled Lopressor. Eliquis. - COPD in a previous smoker Albuterol 4 puffs 4 times a day when necessary. Symbicort 60/4.5 one puff twice a day -Diabetes mellitus type 2, Diet controlled. Follow Accu-Cheks with sliding scale -Hyperlipidemia Zocor -Essential hypertension Lopressor. -Primary osteoarthritis Tylenol as needed -Obstructive sleep apnea does not use CPAP -Chronic lower extremity lymphedema Continue with stockings -Chronic gout Allopurinol 100 mg twice a day -Full code IV Lasix. Symbicort. IV nafcillin . Discussed with the patient and . Kostas wrap both the forearms. Follow labs.
--- NOTE | 2022-12-08 12:05 | P.PN ---
Subjective Progress Note Date: 12/08/22 Principal diagnosis: MSSA bacteremia, likely aortic valve endocarditis Patient is a 72-year-old male with a past medical history significant for atrial fibrillation COPD diabetes mellitus DVT hypertension hyperlipidemia renal insufficiency was brought into the ER by EMS for evaluation of mental status , patient also noticed to have evidence of MSSA bacteremia with e chocardiogram completed on 12/08/2019 concern for possible vegetation to the aortic valve. On today's evaluation that is 12/08/2022, the patient denies having any fevers or any chills patient is currently breathing comfortably on nasal cannula oxygen as any chest pain shortness of breath occasional cough no abdominal pain or diarrhea Objective - Vital Signs Vital signs: Vital Signs Temp 97.8 F 12/08/22 03:20 Pulse 79 12/08/22 03:20 Resp 19 12/08/22 03:20 BP 119/69 12/08/22 03:20 Pulse Ox 93 L 12/08/22 07:52 FiO2 Intake & Output 12/07/22 12/08/22 12/08/22 18:59 06:59 18:59 Intake Total 235 749 3429 Output Total 1000 2150 100 Balance -60 1216 Weight 129.1 kg Intake: Intake, IV Titration 500 200 Amount Nafcillin 2 gm In 200 Dextrose 5% in Water 100 ml @ 50 mls/hr IVPB Q4HR [facility] Rx#:[id number] Vancomycin 2,000 mg In 500 Sodium Chloride 0.9% 500 ml 500 ml @ 167 mls/hr IVPB ONCE ONE Rx#: [id number] Oral 440 1316 Output: Urine 1000 2150 100 Other: Voiding Method Urinal Urinal # Voids 3 - Exam GENERAL DESCRIPTION: An elderly male lying in bed in no distress RESPIRATORY SYSTEM: Unlabored breathing , decreased breath sounds at bases HEART: S1 S2 regular rate and rhythm , ABDOMEN: Soft , no tenderness EXTREMITIES: No edema feet - Labs CBC & Chem 7: 12/07/22 05:56 12/08/22 07:12 Labs: Abnormal Lab Results - Last 24 Hours (Table) 12/07/22 12/07/22 12/07/22 Range/Units 05:56 11:41 16:57 Sodium (137-145) mmol/L Chloride (98-107) mmol/L BUN (9-20) mg/dL Creatinine (0.66-1.25) mg/dL Glucose (74-99) mg/dL POC Glucose (mg/dL) 150 H 234 H (70-110) mg/dL Calcium (8.4-10.2) mg/dL Procalcitonin 0.81 H (0.02-0.09) ng/mL 12/07/22 12/08/22 12/08/22 Range/Units 20:20 06:01 07:12 Sodium 130 L (137-145) mmol/L Chloride 97 L (98-107) mmol/L BUN 69 H (9-20) mg/dL Creatinine 3.63 H (0.66-1.25) mg/dL Glucose 165 H (74-99) mg/dL POC Glucose (mg/dL) 182 H 182 H (70-110) mg/dL Calcium 8.2 L (8.4-10.2) mg/dL Procalcitonin (0.02-0.09) ng/mL Microbiology - Last 24 Hours (Table) 12/07/22 10:26 Blood Culture Gram Stain - Preliminary Blood 12/06/22 19:19 Blood Culture - Final Blood 12/05/22 23:46 Blood Culture Gram Stain - Preliminary Blood Blood Culture - Preliminary Presumptive Staph aureus Assessment and Plan (1) MSSA bacteremia Current Visit: Yes Status: Acute Code(s): R78.81 - BACTEREMIA; B95.61 - METHICILLIN SUSCEP STAPH INFCT CAUSING DIS CLASSD ELSR SNOMED Code(s): 606999720 (2) Aortic valve endocarditis Current Visit: Yes Status: Acute Code(s): I35.8 - OTHER NONRHEUMATIC AORTIC VALVE DISORDERS SNOMED Code(s): 95540181 Plan: 1patient with MSSA bacteremia in this patient presented to hospital with mental status changes also have complaint of increasing shortness of breath patient currently do not have any open wound or cellulitis chest x-ray was suggestive of pneumonia urine has been negative for any pyuria and abdominal soft examination with concern for possible endovascular source. 2blood cultures will be repeated document clearance of bacteremia 3- echocardiogram did show evidence of possible aortic valve endocarditis. 4patient continue with Naficillin 2 g every 4 hours Family the bedside questions were answered Time with Patient: Less than 30
--- NOTE | 2022-12-08 15:42 | P.PN ---
Subjective Patient is seen for follow-up for acute kidney injury and chronic kidney disease. Patient was admitted to the hospital with mental status changes. Renal function is about the same as on discharge from last hospitalization. Serum creatinine improved from about 4.0 on 11/22/2022 to 3.6 today. Patient remains on IV Lasix. Blood cultures were positive for MRSA, currently maintained on cefazolin. Good urine output. 3.1 L documented for last 24 hours. Objective - Vital Signs Vital signs: Vital Signs Temp 97.8 F 12/08/22 03:20 Pulse 96 12/08/22 12:00 Resp 16 12/08/22 12:00 BP 145/74 12/08/22 12:00 Pulse Ox 97 12/08/22 12:00 FiO2 Intake & Output 12/07/22 12/08/22 12/08/22 18:59 06:59 18:59 Intake Total 851 502 2465 Output Total 1000 2150 400 Balance -60 -1950 916 Weight 129.1 kg Intake: Intake, IV Titration 500 200 Amount Nafcillin 2 gm In 200 Dextrose 5% in Water 100 ml @ 50 mls/hr IVPB Q4HR [facility] Rx#:[id number] Vancomycin 2,000 mg In 500 Sodium Chloride 0.9% 500 ml 500 ml @ 167 mls/hr IVPB ONCE ONE Rx#: [id number] Oral 440 1316 Output: Urine 1000 2150 400 Other: Voiding Method Urinal Urinal Urinal # Voids 3 - Exam Patient is awake, comfortable, no acute distress. He is alert and oriented 3 Examination of the heart S1 and S2 Examination of the lungs bilateral breath sounds are heard Abdomen is soft nontender Examination of lower extremity shows chronic edema with chronic skin changes CREATIVE DESIGNER exam grossly intact - Labs CBC & Chem 7: 12/07/22 05:56 12/08/22 07:12 Labs: Abnormal Lab Results - Last 24 Hours (Table) 12/07/22 12/07/22 12/07/22 Range/Units 05:56 16:57 20:20 Sodium (137-145) mmol/L Chloride (98-107) mmol/L BUN (9-20) mg/dL Creatinine (0.66-1.25) mg/dL Glucose (74-99) mg/dL POC Glucose (mg/dL) 234 H 182 H (70-110) mg/dL Calcium (8.4-10.2) mg/dL Procalcitonin 0.81 H (0.02-0.09) ng/mL 12/08/22 12/08/22 12/08/22 Range/Units 06:01 07:12 11:37 Sodium 130 L (137-145) mmol/L Chloride 97 L (98-107) mmol/L BUN 69 H (9-20) mg/dL Creatinine 3.63 H (0.66-1.25) mg/dL Glucose 165 H (74-99) mg/dL POC Glucose (mg/dL) 182 H 227 H (70-110) mg/dL Calcium 8.2 L (8.4-10.2) mg/dL Procalcitonin (0.02-0.09) ng/mL Microbiology - Last 24 Hours (Table) 12/07/22 10:26 Blood Culture Gram Stain - Preliminary Blood Blood Culture - Preliminary Presumptive Staph aureus 12/05/22 23:46 Blood Culture Gram Stain - Final Blood Blood Culture - Final Staphylococcus aureus 12/05/22 23:45 Blood Culture Gram Stain - Final Blood Blood Culture - Final Staphylococcus aureus Assessment and Plan Assessment: 1. 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 Serum creatinine staying at about 3.6-3.7 mg/dL, improved from last admission. No hydronephrosis noted on ultrasound during the last admission. Left kidney wasn't assessed due to patient's position and size. Renal function is improving 2. Chronic diastolic CHF with mitral and tricuspid regurgitation and onru-ta-[id number] aortic regurgitation, currently stable and improved from last admission about 1 month ago. 3. CK D mineral bone disorder maintained on calcitriol 4. Hyponatremia with volume overload. Status post Samsca 5. Staph aureus bacteremia maintained on cefazolin Plan: Continue with IV Lasix Monitor urine output Repeat labs in a.m. continue with antibiotics Avoid vancomycin.
[2022-12-08 16:41] LABS: Glucose,Whole Blood 176 mg/dL (70-110)
[2022-12-08 20:24] LABS: Glucose,Whole Blood 181 mg/dL (70-110)
[2022-12-08] MEDS: MELATONIN 5 MG TABLET PO SCH (21:26)
[2022-12-08] MEDS: ATORVASTATIN 10 MG TAB PO SCH (21:26)
[2022-12-08] MEDS: ASPIRIN 81 MG PO SCH (21:26)
[2022-12-08] MEDS: METOPROLOL TARTRATE 25 MG TAB PO SCH (21:26)
[2022-12-08] MEDS: ERGOCALCIFEROL 1,250 MCG (50,000 IU) CAPSULE PO SCH (23:34)
[2022-12-09] MEDS: NAFCILLIN 2 GM in DEXTROSE 5% IN WATER 100 ML IVPB SCH ×12 (04:47→23:14)
[2022-12-09 06:06] LABS: Glucose,Whole Blood 188 mg/dL (70-110)
[2022-12-09] MEDS: FUROSEMIDE 10 MG/ML 4 ML VIAL IV SCH ×2 (08:01→20:43)
[2022-12-09] MEDS: METOPROLOL TARTRATE 50 MG TAB PO SCH (08:02)
[2022-12-09] MEDS: FAMOTIDINE 20 MG TAB PO SCH (08:02)
[2022-12-09] MEDS: allopurinoL 100 MG TAB PO SCH ×2 (08:02→20:42)
[2022-12-09] MEDS: APIXABAN 2.5 MG TABLET PO SCH ×2 (08:02→20:42)
[2022-12-09] MEDS: SYMBICORT 80-4.5 MCG INHALER INHALATION SCH ×2 (08:43→20:53)
[2022-12-09] MEDS: ALBUTEROL HFA INHALER INHALATION PRN (08:43)
[2022-12-09 09:00] LABS: Calcium 8.4 mg/dL (8.4-10.2); Potassium 3.4 mmol/L (3.5-5.1)
[2022-12-09] MEDS ORDERED: POTASSIUM CHLORIDE ER 20 MEQ TAB.ER PO STA (10:20)
[2022-12-09 11:32] LABS: Glucose,Whole Blood 151 mg/dL (70-110)
--- NOTE | 2022-12-09 12:30 | P.PN ---
Subjective Patient is seen for follow-up for acute kidney injury and chronic kidney disease. Patient was admitted to the hospital with mental status changes. Renal function is about the same as on discharge from last hospitalization. Serum creatinine improved from about 4.0 on 11/22/2022 to 3.4 today. Patient remains on IV Lasix. Blood cultures were positive for MRSA, currently maintained on cefazolin. Patient is confused today Objective - Vital Signs Vital signs: Vital Signs Temp 97.5 F L 12/09/22 07:55 Pulse 78 12/09/22 11:13 Resp 16 12/09/22 11:13 BP 154/95 12/09/22 11:13 Pulse Ox 95 12/09/22 11:13 FiO2 Intake & Output 12/08/22 12/09/22 12/09/22 18:59 06:59 18:59 Intake Total 1552 240 Output Total 550 150 Balance 1002 90 Weight 131.3 kg Intake: Oral 1552 240 Output: Urine 550 150 Other: Voiding Method Urinal Urinal Urinal # Voids 1 # Bowel Movements 1 - Exam Patient is awake, comfortable, no acute distress. Examination of the heart S1 and S2 Examination of the lungs bilateral breath sounds are heard Abdomen is soft nontender Examination of lower extremity shows chronic edema with chronic skin changes DIRECTOR OF SECURITY exam grossly intact - Labs CBC & Chem 7: 12/07/22 05:56 12/09/22 08:23 Labs: Abnormal Lab Results - Last 24 Hours (Table) 12/08/22 12/08/22 12/09/22 Range/Units 16:38 20:23 06:05 Sodium (137-145) mmol/L Potassium (3.5-5.1) mmol/L Chloride (98-107) mmol/L BUN (9-20) mg/dL Creatinine (0.66-1.25) mg/dL Glucose (74-99) mg/dL POC Glucose (mg/dL) 176 H 181 H 188 H (70-110) mg/dL 12/09/22 12/09/22 Range/Units 08:23 11:31 Sodium 133 L (137-145) mmol/L Potassium 3.4 L (3.5-5.1) mmol/L Chloride 95 L (98-107) mmol/L BUN 70 H (9-20) mg/dL Creatinine 3.45 H (0.66-1.25) mg/dL Glucose 159 H (74-99) mg/dL POC Glucose (mg/dL) 151 H (70-110) mg/dL Microbiology - Last 24 Hours (Table) 12/08/22 07:16 Blood Culture Gram Stain - Preliminary Blood 12/08/22 07:16 Blood Culture - Final Blood 12/07/22 10:26 Blood Culture Gram Stain - Preliminary Blood Blood Culture - Preliminary Presumptive Staph aureus 12/05/22 23:46 Blood Culture Gram Stain - Final Blood Blood Culture - Final Staphylococcus aureus 12/05/22 23:45 Blood Culture Gram Stain - Final Blood Blood Culture - Final Staphylococcus aureus Assessment and Plan Assessment: 1. 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 Serum creatinine staying at about 3.6-3.7 mg/dL, improved from last admission. No hydronephrosis noted on ultrasound during the last admission. Left kidney wasn't assessed due to patient's position and size. Renal function is improving 2. Chronic diastolic CHF with mitral and tricuspid regurgitation and reyz-hh-vqqjaazj aortic regurgitation, currently stable and improved from last admission about 1 month ago. 3. CK D mineral bone disorder maintained on calcitriol 4. Hyponatremia with volume overload. Status post Samsca 5. Staph aureus bacteremia maintained on cefazolin Plan: Continue with IV Lasix Monitor urine output Repeat labs in a.m. continue with antibiotics
--- NOTE | 2022-12-09 12:56 | P.PN ---
Progress Note - Text Progress Note Date: 12/09/22 This is a pleasant 72-year-old patient who follows with Dr. Holder. Chronic stable medical conditions include atrial fibrillation, COPD, diabetes, hyperlipidemia, CHF-preserved EF hypertension, osteoarthritis, CK D, sleep apnea does not use CPAP, gout, lymphedema arthritis chronic lymphedema - follows with a physician for pumping out of the area. Patient came in with comments of altered mental status shortness of breath and the bilateral pedal edema. Patient past medical history significant for chronic diastolic dysfunction was on diuretics at home. Patient is found to be in heart failure exacerbation chest x-ray showed significant pulmonary edema with bilateral pleural effusions. Patient doesn't have any fever did have leukocytosis of 21,600. Patient is alert oriented 3. Patient was admitted and was treated for CHF as well as pneumonia believing that patient has atelectasis or pneumonia and patient was receiving vancomycin. Patient does drink alcohol quite a bit but not a daily basis. Patient has elevated highly elevated BNP of around 17,000. Does have history of chronic kidney disease stage IV with baseline creatinine around 2.5 present creatinine is 3.97 and patient is also hyponatremic. 12/07/2022: I assumed care of the patient today. Appetite is fair. No cough. Had a bowel movement. Patient does state he had a fever at home. Up in a chair today. Blood cultures positive for Staphylococcus aureus. Seen by ID. Vancomycin changed over to nafcillin. Denies any new urinary symptoms. 12/08/2022: Up in a recliner. Complaining of discomfort in both the forearms. Wants to go home. Explained importance of staying here. Discussed with the patient and the at the bedside. Remains on IV Lasix. IV nafcillin. Eating some. In negative fluid balance. 12/09/2022: Up in a recliner. Eating well. Repeat blood cultures remained positive. 2-D echo yesterday shows echodensity on the aortic valve suspicious for vegetation. Discussed with ID. KARTHIK requested further defining the path anatomy. IV nafcillin. Active Medications Acetaminophen (Acetaminophen Tab 500 Mg Tab) 500 mg PO Q6HR PRN PRN Reason: Fever and/ or Pain Last Admin: 12/08/22 09:34 Dose: 500 mg Albuterol Sulfate (Albuterol Hfa Inhaler) 2 puff INHALATION RT-QID PRN PRN Reason: Shortness Of Breath Or Wheezing Last Admin: 12/09/22 08:43 Dose: 2 puff Allopurinol (Allopurinol 100 Mg Tab) 100 mg PO BID [facility] Last Admin: 12/09/22 08:02 Dose: 100 mg Apixaban (Apixaban 2.5 Mg Tablet) 2.5 mg PO BID [facility]; Protocol Last Admin: 12/09/22 08:02 Dose: 2.5 mg Aspirin (Aspirin 81 Mg) 81 mg PO [facility] Last Admin: 12/08/22 21:26 Dose: 81 mg Atorvastatin Calcium (Atorvastatin 10 Mg Tab) 10 mg PO HS [facility] Last Admin: 12/08/22 21:26 Dose: 10 mg Budesonide/Formoterol Fumarate (Symbicort 80-4.5 Mcg Inhaler) 1 puff INHALATION RT-BID [facility] Last Admin: 12/09/22 08:43 Dose: 1 puff Calcitriol (Calcitriol 0.25 Mcg Cap) 0.5 mcg PO SUTH@2100 OWEN Ergocalciferol (Ergocalciferol 1,250 Mcg (50,000 Iu) Capsule) 1,250 mcg PO MOWEFR@2100 [facility] Last Admin: 12/08/22 23:34 Dose: 1,250 mcg Famotidine (Famotidine 20 Mg Tab) 20 mg PO DAILY [facility] Last Admin: 12/09/22 08:02 Dose: 20 mg Furosemide (Furosemide 10 Mg/Ml 4 Ml Vial) 40 mg IV Q12HR [facility] Last Admin: 12/09/22 08:01 Dose: 40 mg Nafcillin Sodium 2 gm/ (Dextrose/Water) 100 mls @ 50 mls/hr IVPB Q4HR [facility]; Protocol Last Admin: 12/09/22 11:14 Dose: 50 mls/hr Melatonin (Melatonin 5 Mg Tablet) 5 mg PO [facility] Last Admin: 12/08/22 21:26 Dose: 5 mg Metoprolol Tartrate (Metoprolol Tartrate 25 Mg Tab) 25 mg PO [facility] Last Admin: 12/08/22 21:26 Dose: 25 mg Metoprolol Tartrate (Metoprolol Tartrate 50 Mg Tab) 50 mg PO DAILY [facility] Last Admin: 12/09/22 08:02 Dose: 50 mg Past medical history to include: Atrial fibrillation, COPD, diabetes, DVT, hypertension, hyperlipidemia, [place], osteoarthritis, CKD, obstructive sleep apnea does not use CPAP, DJD, legally blind bilaterally, GERD, varicose veins, lymphedema back surgery. CHF with diastolic dysfunction Social history: Lives with his . Does use a 4W walker. Smoked 2 packs a day for 45 years stopped in 2016. Occasional marijuana and CBD ordered. Alcohol rarely. Physical examination: VITAL SIGNS: 97.5, 78, 16, 154/95, 95% on 4 L GENERAL: Up in a recliner. Bruising. EYES: Pupils equal. Conjunctiva normal. HEENT: External appearance of nose and ears normal, oral cavity grossly normal. NECK: JVD possibly raised; masses not palpable. HEART: First and second heart sounds are normal; edema present. LUNGS:[ Respiratory rate increased; decreased breath sounds. ABDOMEN: Soft, nontender, liver spleen not palpable, no masses palpable. PSYCH: Alert and oriented x3; mood and affect normal. MUSCULOSKELETAL:No Clubbing/cyanosis;muscles-grossly intact. OA EXTREMITIES: Stockings lower extremity LYMPHATICS: Lymphedema lower extremity INVESTIGATIONS, reviewed in the clinical context: 12/09/2022: Sodium 133 potassium 3.4 BUN 70 creatinine 3.45 2-D echocardiogram [12/07/2022] EF 50-55%. Rddt-pa-wghonutl MR.echodensity on the aortic valve suspicious for vegetation 12/08/2022: Sodium 1:30 potassium 3.5 BUN 69 creatinine 3.63 12/07/2022: White count 18.1 hemoglobin 11.6 platelets 26 sodium 129 potassium 3 BUN [address] brain: Cerebral atrophy Previous labs 11/19/2022: Potassium 3.6. 49 creatinine 3.38 2-D echocardiogram: [11/17/2022 ] Normal LV size and function. Mild to moderate AR. Assessment and plan: -Sepsis, with positive blood culture staph aureus, vegetation on aortic valve. POA,: Slow to respond Initial blood culture positive from December 05. Repeat blood cultures positive from December 08. 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 IV nafcillin -Acute hypoxic respiratory failure from CHF: Better Oxygen supplement -Acute on chronic congestive heart failure exacerbation. From diastolic dysfunction. Preserved EF.: Slow to respond Lasix 40 mg IV every 12. Strict I's and O's. Fluid restriction 1500 mL a day. Cardiology following -Chronic kidney disease stage IV secondary to diabetic and kidney disease and cardiorenal syndrome. Creatinine 3.9 from recently -Persistent atrial fibrillation, rate controlled Lopressor. Eliquis. - COPD in a previous smoker Albuterol 4 puffs 4 times a day when necessary. Symbicort 60/4.5 one puff twice a day -Diabetes mellitus type 2, Diet controlled. Follow Accu-Cheks with sliding scale -Hyperlipidemia Zocor -Essential hypertension Lopressor. -Primary osteoarthritis Tylenol as needed -Obstructive sleep apnea does not use CPAP -Chronic lower extremity lymphedema Continue with stockings -Chronic gout Allopurinol 100 mg twice a day -Full code IV Lasix. Symbicort. IV nafcillin . KARTHIK requested from meghan narvaez her definition. Discussed with patient. Discussed with ID.
--- NOTE | 2022-12-09 13:56 | P.PN ---
Subjective Progress Note Date: 12/09/22 Principal diagnosis: MSSA bacteremia, likely aortic valve endocarditis Patient is a 72-year-old male with a past medical history significant for atrial fibrillation COPD diabetes mellitus DVT hypertension hyperlipidemia renal insufficiency was brought into the ER by EMS for evaluation of mental status , patient also noticed to have evidence of MSSA bacteremia with e chocardiogram completed on 12/08/2019 concern for possible vegetation to the aortic valve. On today's evaluation that is 12/09/2022, the patient remains to be afebrile, the patient is breathing comfortably on nasal cannula oxygen, the patient denies chest pain shortness of breath occasional cough no abdominal pain or diarrhea Objective - Vital Signs Vital signs: Vital Signs Temp 97.5 F L 12/09/22 07:55 Pulse 78 12/09/22 08:00 Resp 22 12/09/22 07:55 BP 147/76 12/09/22 07:55 Pulse Ox 99 12/09/22 08:46 FiO2 Intake & Output 12/08/22 12/09/22 12/09/22 18:59 06:59 18:59 Intake Total 1552 240 Output Total 550 150 Balance 1002 90 Weight 131.3 kg Intake: Oral 1552 240 Output: Urine 550 150 Other: Voiding Method Urinal Urinal Urinal # Voids 1 # Bowel Movements 1 - Exam GENERAL DESCRIPTION: An elderly male lying in bed in no distress RESPIRATORY SYSTEM: Unlabored breathing , decreased breath sounds at bases HEART: S1 S2 regular rate and rhythm , ABDOMEN: Soft , no tenderness EXTREMITIES: No edema feet - Labs CBC & Chem 7: 12/07/22 05:56 12/09/22 08:23 Labs: Abnormal Lab Results - Last 24 Hours (Table) 12/08/22 12/08/22 12/08/22 Range/Units 11:37 16:38 20:23 Sodium (137-145) mmol/L Potassium (3.5-5.1) mmol/L Chloride (98-107) mmol/L BUN (9-20) mg/dL Creatinine (0.66-1.25) mg/dL Glucose (74-99) mg/dL POC Glucose (mg/dL) 227 H 176 H 181 H (70-110) mg/dL 12/09/22 12/09/22 Range/Units 06:05 08:23 Sodium 133 L (137-145) mmol/L Potassium 3.4 L (3.5-5.1) mmol/L Chloride 95 L (98-107) mmol/L BUN 70 H (9-20) mg/dL Creatinine 3.45 H (0.66-1.25) mg/dL Glucose 159 H (74-99) mg/dL POC Glucose (mg/dL) 188 H (70-110) mg/dL Microbiology - Last 24 Hours (Table) 12/08/22 07:16 Blood Culture Gram Stain - Preliminary Blood 12/08/22 07:16 Blood Culture - Final Blood 12/07/22 10:26 Blood Culture Gram Stain - Preliminary Blood Blood Culture - Preliminary Presumptive Staph aureus 12/05/22 23:46 Blood Culture Gram Stain - Final Blood Blood Culture - Final Staphylococcus aureus 12/05/22 23:45 Blood Culture Gram Stain - Final Blood Blood Culture - Final Staphylococcus aureus Assessment and Plan (1) MSSA bacteremia Current Visit: Yes Status: Acute Code(s): R78.81 - BACTEREMIA; B95.61 - METHICILLIN SUSCEP STAPH INFCT CAUSING DIS CLASSD [id number] SNOMED Code(s): 834414664 (2) Aortic valve endocarditis Current Visit: Yes Status: Acute Code(s): I35.8 - OTHER NONRHEUMATIC AORTIC VALVE DISORDERS SNOMED Code(s): 14354167 Plan: 1patient with MSSA bacteremia in this patient presented to hospital with mental status changes also have complaint of increasing shortness of breath patient currently do not have any open wound or cellulitis chest x-ray was suggestive of pneumonia urine has been negative for any pyuria and abdominal soft examination with concern for possible endovascular source. 2blood cultures will be repeated daily to document clearance of bacteremia , blood culture from 12/09/2019 are positive 3- echocardiogram did show evidence of possible aortic valve endocarditis. KARTHIK has been ordered for better evaluation of the aortic valve 4patient continue with Naficillin 2 g every 4 hours, and monitor clinical course closely Time with Patient: Less than 30
[2022-12-09 16:46] LABS: Glucose,Whole Blood 155 mg/dL (70-110)
[2022-12-09] MEDS: ACETAMINOPHEN TAB 500 MG TAB PO PRN (17:43)
[2022-12-09 20:09] LABS: Glucose,Whole Blood 176 mg/dL (70-110)
[2022-12-09] MEDS: METOPROLOL TARTRATE 25 MG TAB PO SCH (20:41)
[2022-12-09] MEDS: ATORVASTATIN 10 MG TAB PO SCH (20:41)
[2022-12-09] MEDS: ASPIRIN 81 MG PO SCH (20:41)
[2022-12-09] MEDS: MELATONIN 5 MG TABLET PO SCH (20:42)
[2022-12-10] MEDS: NAFCILLIN 2 GM in DEXTROSE 5% IN WATER 100 ML IVPB SCH ×10 (03:54→20:53)
[2022-12-10 05:59] LABS: Glucose,Whole Blood 140 mg/dL (70-110)
[2022-12-10 07:42] LABS: Basophils % (A) 0 %; Eosinophils # (A) 0.1 k/uL (0-0.7); Eosinophils % (A) 0 %; HCT 41.2 % (39.0-53.0); HGB 13.1 gm/dL (13.0-17.5); Lymphocytes # (A) 1.4 k/uL (1.0-4.8); Lymphocytes % (A) 11 %; MCH 30.6 pg (25.0-35.0); MCHC 31.9 g/dL (31.0-37.0); MCV 95.9 fL (80.0-100.0); Mean Platelet Volume 7.9; Monocytes # (A) 0.6 k/uL (0-1.0); Monocytes % (A) 5 %; Neutrophils # (A) 10.8 k/uL (1.3-7.7); Neutrophils % (A) 82 %; Platelet Count 285 k/uL (150-450); RDW 14.6 % (11.5-15.5); WBC 13.1 k/uL (3.8-10.6)
[2022-12-10 08:15] LABS: Calcium 8.5 mg/dL (8.4-10.2); Potassium 3.6 mmol/L (3.5-5.1)
[2022-12-10] MEDS: SYMBICORT 80-4.5 MCG INHALER INHALATION SCH ×2 (08:21→20:27)
[2022-12-10] MEDS: APIXABAN 2.5 MG TABLET PO SCH ×2 (09:36→20:05)
[2022-12-10] MEDS: METOPROLOL TARTRATE 50 MG TAB PO SCH (09:36)
[2022-12-10] MEDS: FAMOTIDINE 20 MG TAB PO SCH (09:36)
[2022-12-10] MEDS ORDERED: IV FLUID CONTINUATION 1,000 ML IV ONE (10:18)
[2022-12-10] MEDS ORDERED: fentaNYL (PF) 50 MCG/ML 2 ML AMP ONE (10:18)
[2022-12-10] MEDS: BENZOCAINE SPRAY 1 CAN TOPICAL ONE ×2 (10:35→10:45)
[2022-12-10] MEDS ORDERED: MIDAZOLAM 2 MG/2 ML VIAL IV ONE ×3 (10:45)
[2022-12-10] MEDS ORDERED: fentaNYL (PF) 50 MCG/ML 2 ML AMP IV ONE ×2 (10:45)
[2022-12-10 11:46] LABS: Glucose,Whole Blood 152 mg/dL (70-110)
--- NOTE | 2022-12-10 11:53 | P.CRDCN ---
History of Present Illness History of present illness: HISTORY OF PRESENTING ILLNESS Patient is a pleasant 72-year-old male with history of atrial fibrillation, COPD, diabetes mellitus type 2, DVT, hypertension, hyperlipidemia, see daily. Patient initially presented 12/05/2022 with altered mental status. Prior hospitalization 1 month prior to this with bilateral edema and pleural effusions. He was found to have elevated white blood cell count up to 21,000 and eventually diagnosed with staph aureus bacteremia. Cardiology was asked to evaluate for KARTHIK to evaluate for persistent bacteremia. 2-D echo 12/07/2022 shows normal left ventricular ejection fraction with echodensity on the non- coronary cusp of the aortic valve with mild to moderate aortic insufficiency. He previously followed in the office with Dr Avila. REVIEW OF SYSTEMS At the time of my exam: CONSTITUTIONAL: Denies fever or chills. CARDIOVASCULAR: Denies chest pain, +shortness of breath, no orthopnea, PND or palpitations. RESPIRATORY: Denies cough. GASTROINTESTINAL: Denies abdominal pain, diarrhea, constipation, nausea or vomiting. MUSCULOSKELETAL: Denies myalgias. NEUROLOGIC: Denies numbness, tingling or weakness. ENDOCRINE: Denies fatigue, weight change, polydipsia or polyurina. GENITOURINARY: Denies burning, hematuria or urgency with micturation. HEMATOLOGIC: Denies history of anemia or bleeding. PHYSICAL EXAMINATION Vital signs reviewed. CONSTITUTIONAL: No apparent distress, chronically ill appearing. HEENT: Head is normocephalic. Pupils are equal, round. Sclerae anicteric. Mucous membranes of the mouth are moist. No JVD. No carotid bruit. CHEST EXAMINATION: Lungs are clear to auscultation. No chest wall tenderness is noted on palpation or with deep breathing. HEART EXAMINATION: Irregular rate and rhythm. S1, S2 heard. No murmurs, gallops or rub. ABDOMEN: Soft, nontender. Positive bowel sounds. EXTREMITIES: 2+ peripheral pulses, 2+ lower extremity edema and no calf tenderness. NEUROLOGIC EXAMINATION: Patient is awake, alert ASSESSMENT 1. Sepsis with staph aureus bacteremia 2. Echo density of aortic valve concerning for vegetation 3. Acute on chronic kidney disease 4. Chronic diastolic heart failure 5. Mild to moderate aortic regurgitation 6. Hypertension 7. Persistent atrial fibrillation 8. Hyperlipidemia 9. Non-STEMI, likely type II mechanism related to sepsis PLAN Continue current supportive care with Eliquis, Metoprolol. Elevated troponins appear most likely related to type 2 mechanism related to sepsis. Check KARTHIK given concern of vegetation and persistent bacteremia. Past Medical History Past Medical History: Atrial Fibrillation, COPD, Diabetes Mellitus, Deep Vein Thrombosis (DVT), Eye Disorder, Hyperlipidemia, Hypertension, Myocardial Infarction (SC), Osteoarthritis (OA), Renal Disease, Sleep Apnea/CPAP/BIPAP Additional Past Medical History / Comment(s): 2016 sepsis, severe back pain, hx bacteremia, DDD, renal cysts being followed by Dr. 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 Smoking Status: Former smoker - Past Family History Mother Family Medical History: CVA/TIA, Deep Vein Thrombosis (DVT) Additional Family Medical History / Comment(s): Mother is 92 yrs old. She had a CVA which left her with R sided paralysis. Father Family Medical History: Cancer Additional Family Medical History / Comment(s): Father is . Medications and Allergies Home Medications Medication Instructions Recorded Confirmed Type Aspirin 81 mg PO HS 11/05/14 12/06/22 History Simvastatin [Zocor] 20 mg PO HS 11/05/14 12/06/22 History allopurinoL [Zyloprim] 100 mg PO BID 05/04/16 12/06/22 History Cinnamon Bark [Cinnamon] 500 mg PO DAILY 10/06/18 12/06/22 History Metoprolol Tartrate 25 mg PO HS 10/06/18 12/06/22 History Metoprolol Tartrate 50 mg PO DAILY 10/06/18 12/06/22 History Ergocalciferol (Vitamin D2) 1,250 mcg PO MOWEFR@2100 11/17/22 12/06/22 History [Drisdol (50,000 Iu)] Melatonin 5 mg PO HS 11/17/22 12/06/22 History calcitrioL [Calcitriol] 0.5 mcg PO SUTH@2100 11/17/22 12/06/22 History Acetaminophen Tab [Tylenol] 650 mg PO Q6HR PRN tab 11/22/22 12/06/22 Rx Albuterol Inhaler [Ventolin Hfa 2 puff INHALATION RT-QID PRN #1 11/22/22 12/06/22 Rx Inhaler] each Apixaban [Eliquis] 2.5 mg PO BID #60 tab 11/22/22 12/06/22 Rx Furosemide [Lasix] 40 mg PO BID@0900,1600 #60 tab 11/22/22 12/06/22 Rx Linagliptin [Tradjenta] 5 mg PO HS #30 tab 11/22/22 12/06/22 Rx Sulfamethoxazole/Trimethoprim 1 tab PO BID 12/06/22 12/06/22 History [Bactrim SS 400-80 mg] Allergies Allergy/AdvReac Type Severity Reaction Status Date / Time No Known Allergies Allergy Verified 12/06/22 06:46 Physical Exam Vitals: Vital Signs Temp Pulse Pulse Resp BP Pulse Ox 12/10/22 11:46 101 H 20 129/75 95 12/10/22 10:25 77 16 172/73 96 12/10/22 08:23 94 L 12/10/22 08:00 101 H 22 12/10/22 07:59 101 H 22 12/10/22 07:57 98.1 F 101 H 22 158/75 91 L 12/10/22 03:52 76 18 146/80 92 L 12/09/22 23:18 97.8 F 99 20 146/83 95 12/09/22 20:00 97.9 F 79 18 159/73 95 12/09/22 15:12 97.8 F 75 18 149/84 93 L 12/09/22 15:00 18 95 12/09/22 13:56 78 Intake and Output 12/09/22 12/10/22 12/10/22 22:59 06:59 14:59 Intake Total 956 Output Total 155 1300 Balance 801 -1300 Intake: Oral 956 Output: Urine 155 1300 Other: Voiding Method Urinal Urinal Urinal # Voids 1 # Bowel Movements 1 Weight 124.6 kg Results 12/10/22 07:01 12/10/22 07:01 Cardiac Enzymes 12/05/22 12/05/22 12/05/22 Range/Units 23:46 23:46 23:46 WBC 21.6 H (3.8-10.6) k/uL RBC 4.15 L (4.30-5.90) m/uL Hgb 12.3 L (13.0-17.5) gm/dL Hct 38.8 L (39.0-53.0) % MCV 93.3 (80.0-100.0) fL MCH 29.7 (25.0-35.0) pg MCHC 31.8 (31.0-37.0) g/dL RDW 14.5 (11.5-15.5) % Plt Count 301 D (150-450) k/uL MPV 7.9 Neutrophils % 92 % Lymphocytes % 2 % Monocytes % 3 % Eosinophils % 1 % Basophils % 0 % Neutrophils # 19.8 H (1.3-7.7) k/uL Lymphocytes # 0.5 L (1.0-4.8) k/uL Monocytes # 0.7 (0-1.0) k/uL Eosinophils # 0.1 (0-0.7) k/uL Basophils # 0.1 (0-0.2) k/uL PT 12.6 H (9.0-12.0) sec INR 1.2 H (<1.2) APTT 27.8 (22.0-30.0) sec Sodium 127 L (137-145) mmol/L Potassium 3.7 (3.5-5.1) mmol/L Chloride 88 L (98-107) mmol/L Carbon Dioxide 28 (22-30) mmol/L Anion Gap 11 mmol/L BUN 69 H (9-20) mg/dL Creatinine 3.97 H (0.66-1.25) mg/dL Est GFR (CKD-EPI)AfAm 16 (>60 ml/min/1.73 sqM) Est GFR (CKD-EPI)NonAf 14 (>60 ml/min/1.73 sqM) Glucose 134 H (74-99) mg/dL POC Glucose (mg/dL) (70-110) mg/dL POC Glu Gold Plater ID Plasma Lactic Acid Ankit (0.7-2.0) mmol/L Calcium 8.4 (8.4-10.2) mg/dL Total Bilirubin 0.8 (0.2-1.3) mg/dL ALT 29 (4-49) U/L Alkaline Phosphatase 108 (38-126) U/L NT-Pro-B Natriuret Pep pg/mL Total Protein 5.8 L (6.3-8.2) g/dL Albumin 2.7 L (3.5-5.0) g/dL Procalcitonin (0.02-0.09) ng/mL Urine Color Urine Appearance (Clear) Urine pH (5.0-8.0) Ur Specific [place] (1.001-1.035) Urine Protein (Negative) Urine Glucose (UA) (Negative) Urine Ketones (Negative) Urine Blood (Negative) Urine Nitrite (Negative) Urine Bilirubin (Negative) Urine Urobilinogen (<2.0) mg/dL Ur Leukocyte Esterase (Negative) Urine RBC (0-5) /hpf Urine WBC (0-5) /hpf Hyaline Casts (0-2) /lpf Urine Mucus (None) /hpf Random Vancomycin ug/mL Influenza Type A (PCR) (Not Detectd) Influenza Type B (PCR) (Not Detectd) RSV (PCR) (Not Detectd) SARS-CoV-2 (PCR) (Not Detectd) 12/05/22 12/05/22 12/05/22 Range/Units 23:46 23:46 23:46 WBC (3.8-10.6) k/uL RBC (4.30-5.90) m/uL Hgb (13.0-17.5) gm/dL Hct (39.0-53.0) % MCV (80.0-100.0) fL MCH (25.0-35.0) pg MCHC (31.0-37.0) g/dL RDW (11.5-15.5) % Plt Count (150-450) k/uL MPV Neutrophils % % Lymphocytes % % Monocytes % % Eosinophils % % Basophils % % Neutrophils # (1.3-7.7) k/uL Lymphocytes # (1.0-4.8) k/uL Monocytes # (0-1.0) k/uL Eosinophils # (0-0.7) k/uL Basophils # (0-0.2) k/uL PT (9.0-12.0) sec INR (<1.2) APTT (22.0-30.0) sec Sodium (137-145) mmol/L Potassium (3.5-5.1) mmol/L Chloride (98-107) mmol/L Carbon Dioxide (22-30) mmol/L Anion Gap mmol/L BUN (9-20) mg/dL Creatinine (0.66-1.25) mg/dL Est GFR (CKD-EPI)AfAm (>60 ml/min/1.73 sqM) Est GFR (CKD-EPI)NonAf (>60 ml/min/1.73 sqM) Glucose (74-99) mg/dL POC Glucose (mg/dL) (70-110) mg/dL POC Glu Gold Plater ID Plasma Lactic Acid Ankit 1.5 (0.7-2.0) mmol/L Calcium (8.4-10.2) mg/dL Total Bilirubin (0.2-1.3) mg/dL ALT (4-49) U/L Alkaline Phosphatase (38-126) U/L NT-Pro-B Natriuret Pep 08469 pg/mL Total Protein (6.3-8.2) g/dL Albumin (3.5-5.0) g/dL Procalcitonin (0.02-0.09) ng/mL Urine Color Yellow Urine Appearance Clear (Clear) Urine pH 7.0 (5.0-8.0) Ur Specific [place] 1.012 (1.001-1.035) Urine Protein 3+ H (Negative) Urine Glucose (UA) 1+ H (Negative) Urine Ketones Negative (Negative) Urine Blood Moderate H (Negative) Urine Nitrite Negative (Negative) Urine Bilirubin Negative (Negative) Urine Urobilinogen <2.0 (<2.0) mg/dL Ur Leukocyte Esterase Negative (Negative) Urine RBC 91 H (0-5) /hpf Urine WBC 5 (0-5) /hpf Hyaline Casts 1 (0-2) /lpf Urine Mucus Rare H (None) /hpf Random Vancomycin ug/mL Influenza Type A (PCR) (Not Detectd) Influenza Type B (PCR) (Not Detectd) RSV (PCR) (Not Detectd) SARS-CoV-2 (PCR) (Not Detectd) 03/12/06/22 12/06/22 Range/Units 00:03 02:50 11:27 WBC (3.8-10.6) k/uL RBC (4.30-5.90) m/uL Hgb (13.0-17.5) gm/dL Hct (39.0-53.0) % MCV (80.0-100.0) fL MCH (25.0-35.0) pg MCHC (31.0-37.0) g/dL RDW (11.5-15.5) % Plt Count (150-450) k/uL MPV Neutrophils % % Lymphocytes % % Monocytes % % Eosinophils % % Basophils % % Neutrophils # (1.3-7.7) k/uL Lymphocytes # (1.0-4.8) k/uL Monocytes # (0-1.0) k/uL Eosinophils # (0-0.7) k/uL Basophils # (0-0.2) k/uL PT 14.1 H (9.0-12.0) sec INR 1.4 H (<1.2) APTT 91.8 H (22.0-30.0) sec Sodium (137-145) mmol/L Potassium (3.5-5.1) mmol/L Chloride (98-107) mmol/L Carbon Dioxide (22-30) mmol/L Anion Gap mmol/L BUN (9-20) mg/dL Creatinine (0.66-1.25) mg/dL Est GFR (CKD-EPI)AfAm (>60 ml/min/1.73 sqM) Est GFR (CKD-EPI)NonAf (>60 ml/min/1.73 sqM) Glucose (74-99) mg/dL POC Glucose (mg/dL) 153 H (70-110) mg/dL POC Glu Gold Plater ID Genaro Jean Plasma Lactic Acid Ankit (0.7-2.0) mmol/L Calcium (8.4-10.2) mg/dL Total Bilirubin (0.2-1.3) mg/dL ALT (4-49) U/L Alkaline Phosphatase (38-126) U/L NT-Pro-B Natriuret Pep pg/mL Total Protein (6.3-8.2) g/dL Albumin (3.5-5.0) g/dL Procalcitonin (0.02-0.09) ng/mL Urine Color Urine Appearance (Clear) Urine pH (5.0-8.0) Ur Specific [place] (1.001-1.035) Urine Protein (Negative) Urine Glucose (UA) (Negative) Urine Ketones (Negative) Urine Blood (Negative) Urine Nitrite (Negative) Urine Bilirubin (Negative) Urine Urobilinogen (<2.0) mg/dL Ur Leukocyte Esterase (Negative) Urine RBC (0-5) /hpf Urine WBC (0-5) /hpf Hyaline Casts (0-2) /lpf Urine Mucus (None) /hpf Random Vancomycin ug/mL Influenza Type A (PCR) Not Detected (Not Detectd) Influenza Type B (PCR) Not Detected (Not Detectd) RSV (PCR) Not Detected (Not Detectd) SARS-CoV-2 (PCR) Not Detected (Not Detectd) 12/06/22 12/06/22 12/06/22 Range/Units 11:27 11:27 11:27 WBC 24.0 H (3.8-10.6) k/uL RBC 3.92 L (4.30-5.90) m/uL Hgb 12.1 L (13.0-17.5) gm/dL Hct 37.0 L (39.0-53.0) % MCV 94.4 (80.0-100.0) fL MCH 30.8 (25.0-35.0) pg MCHC 32.6 (31.0-37.0) g/dL RDW 14.9 (11.5-15.5) % Plt Count 252 (150-450) k/uL MPV 7.7 Neutrophils % 90 % Lymphocytes % 4 % Monocytes % 3 % Eosinophils % 0 % Basophils % 0 % Neutrophils # 21.6 H (1.3-7.7) k/uL Lymphocytes # 1.0 (1.0-4.8) k/uL Monocytes # 0.7 (0-1.0) k/uL Eosinophils # 0.0 (0-0.7) k/uL Basophils # 0.1 (0-0.2) k/uL PT (9.0-12.0) sec INR (<1.2) APTT (22.0-30.0) sec Sodium 130 L (137-145) mmol/L Potassium 3.0 L (3.5-5.1) mmol/L Chloride 93 L (98-107) mmol/L Carbon Dioxide 28 (22-30) mmol/L Anion Gap 9 mmol/L BUN 68 H (9-20) mg/dL Creatinine 3.86 H (0.66-1.25) mg/dL Est GFR (CKD-EPI)AfAm 17 (>60 ml/min/1.73 sqM) Est GFR (CKD-EPI)NonAf 14 (>60 ml/min/1.73 sqM) Glucose 129 H (74-99) mg/dL POC Glucose (mg/dL) (70-110) mg/dL POC Glu Gold Plater ID Plasma Lactic Acid Ankit (0.7-2.0) mmol/L Calcium 8.2 L (8.4-10.2) mg/dL Total Bilirubin (0.2-1.3) mg/dL ALT (4-49) U/L Alkaline Phosphatase (38-126) U/L NT-Pro-B Natriuret Pep pg/mL Total Protein (6.3-8.2) g/dL Albumin (3.5-5.0) g/dL Procalcitonin 0.87 H (0.02-0.09) ng/mL Urine Color Urine Appearance (Clear) Urine pH (5.0-8.0) Ur Specific [place] (1.001-1.035) Urine Protein (Negative) Urine Glucose (UA) (Negative) Urine Ketones (Negative) Urine Blood (Negative) Urine Nitrite (Negative) Urine Bilirubin (Negative) Urine Urobilinogen (<2.0) mg/dL Ur Leukocyte Esterase (Negative) Urine RBC (0-5) /hpf Urine WBC (0-5) /hpf Hyaline Casts (0-2) /lpf Urine Mucus (None) /hpf Random Vancomycin ug/mL Influenza Type A (PCR) (Not Detectd) Influenza Type B (PCR) (Not Detectd) RSV (PCR) (Not Detectd) SARS-CoV-2 (PCR) (Not Detectd) 12/06/22 12/06/22 12/06/22 Range/Units 11:43 16:33 20:26 WBC (3.8-10.6) k/uL RBC (4.30-5.90) m/uL Hgb (13.0-17.5) gm/dL Hct (39.0-53.0) % MCV (80.0-100.0) fL MCH (25.0-35.0) pg MCHC (31.0-37.0) g/dL RDW (11.5-15.5) % Plt Count (150-450) k/uL MPV Neutrophils % % Lymphocytes % % Monocytes % % Eosinophils % % Basophils % % Neutrophils # (1.3-7.7) k/uL Lymphocytes # (1.0-4.8) k/uL Monocytes # (0-1.0) k/uL Eosinophils # (0-0.7) k/uL Basophils # (0-0.2) k/uL PT (9.0-12.0) sec INR (<1.2) APTT (22.0-30.0) sec Sodium (137-145) mmol/L Potassium (3.5-5.1) mmol/L Chloride (98-107) mmol/L Carbon Dioxide (22-30) mmol/L Anion Gap mmol/L BUN (9-20) mg/dL Creatinine (0.66-1.25) mg/dL Est GFR (CKD-EPI)AfAm (>60 ml/min/1.73 sqM) Est GFR (CKD-EPI)NonAf (>60 ml/min/1.73 sqM) Glucose (74-99) mg/dL POC Glucose (mg/dL) 146 H 144 H 153 H (70-110) mg/dL POC Glu Gold Plater Shona Menchaca Diana Johnson, Kylee Plasma Lactic Acid Ankit (0.7-2.0) mmol/L Calcium (8.4-10.2) mg/dL Total Bilirubin (0.2-1.3) mg/dL ALT (4-49) U/L Alkaline Phosphatase (38-126) U/L NT-Pro-B Natriuret Pep pg/mL Total Protein (6.3-8.2) g/dL Albumin (3.5-5.0) g/dL Procalcitonin (0.02-0.09) ng/mL Urine Color Urine Appearance (Clear) Urine pH (5.0-8.0) Ur Specific [place] (1.001-1.035) Urine Protein (Negative) Urine Glucose (UA) (Negative) Urine Ketones (Negative) Urine Blood (Negative) Urine Nitrite (Negative) Urine Bilirubin (Negative) Urine Urobilinogen (<2.0) mg/dL Ur Leukocyte Esterase (Negative) Urine RBC (0-5) /hpf Urine WBC (0-5) /hpf Hyaline Casts (0-2) /lpf Urine Mucus (None) /hpf Random Vancomycin ug/mL Influenza Type A (PCR) (Not Detectd) Influenza Type B (PCR) (Not Detectd) RSV (PCR) (Not Detectd) SARS-CoV-2 (PCR) (Not Detectd) 12/07/22 12/07/22 12/07/22 Range/Units 05:56 05:56 05:56 WBC 18.1 H (3.8-10.6) k/uL RBC 3.91 L (4.30-5.90) m/uL Hgb 11.6 L (13.0-17.5) gm/dL Hct 37.0 L (39.0-53.0) % MCV 94.7 (80.0-100.0) fL MCH 29.8 (25.0-35.0) pg MCHC 31.5 (31.0-37.0) g/dL RDW 14.6 (11.5-15.5) % Plt Count 286 (150-450) k/uL MPV 7.8 Neutrophils % 87 % Lymphocytes % 6 % Monocytes % 5 % Eosinophils % 1 % Basophils % 0 % Neutrophils # 15.6 H (1.3-7.7) k/uL Lymphocytes # 1.0 (1.0-4.8) k/uL Monocytes # 0.9 (0-1.0) k/uL Eosinophils # 0.1 (0-0.7) k/uL Basophils # 0.0 (0-0.2) k/uL PT (9.0-12.0) sec INR (<1.2) APTT (22.0-30.0) sec Sodium 129 L (137-145) mmol/L Potassium 3.0 L (3.5-5.1) mmol/L Chloride 95 L (98-107) mmol/L Carbon Dioxide 26 (22-30) mmol/L Anion Gap 8 mmol/L BUN 67 H (9-20) mg/dL Creatinine 3.76 H (0.66-1.25) mg/dL Est GFR (CKD-EPI)AfAm 17 (>60 ml/min/1.73 sqM) Est GFR (CKD-EPI)NonAf 15 (>60 ml/min/1.73 sqM) Glucose 121 H (74-99) mg/dL POC Glucose (mg/dL) (70-110) mg/dL POC Glu Gold Plater ID Plasma Lactic Acid Ankit (0.7-2.0) mmol/L Calcium 8.2 L (8.4-10.2) mg/dL Total Bilirubin (0.2-1.3) mg/dL ALT (4-49) U/L Alkaline Phosphatase (38-126) U/L NT-Pro-B Natriuret Pep pg/mL Total Protein (6.3-8.2) g/dL Albumin (3.5-5.0) g/dL Procalcitonin 0.81 H (0.02-0.09) ng/mL Urine Color Urine Appearance (Clear) Urine pH (5.0-8.0) Ur Specific [place] (1.001-1.035) Urine Protein (Negative) Urine Glucose (UA) (Negative) Urine Ketones (Negative) Urine Blood (Negative) Urine Nitrite (Negative) Urine Bilirubin (Negative) Urine Urobilinogen (<2.0) mg/dL Ur Leukocyte Esterase (Negative) Urine RBC (0-5) /hpf Urine WBC (0-5) /hpf Hyaline Casts (0-2) /lpf Urine Mucus (None) /hpf Random Vancomycin ug/mL Influenza Type A (PCR) (Not Detectd) Influenza Type B (PCR) (Not Detectd) RSV (PCR) (Not Detectd) SARS-CoV-2 (PCR) (Not Detectd) 12/07/22 12/07/22 12/07/22 Range/Units 06:03 11:41 16:57 WBC (3.8-10.6) k/uL RBC (4.30-5.90) m/uL Hgb (13.0-17.5) gm/dL Hct (39.0-53.0) % MCV (80.0-100.0) fL MCH (25.0-35.0) pg MCHC (31.0-37.0) g/dL RDW (11.5-15.5) % Plt Count (150-450) k/uL MPV Neutrophils % % Lymphocytes % % Monocytes % % Eosinophils % % Basophils % % Neutrophils # (1.3-7.7) k/uL Lymphocytes # (1.0-4.8) k/uL Monocytes # (0-1.0) k/uL Eosinophils # (0-0.7) k/uL Basophils # (0-0.2) k/uL PT (9.0-12.0) sec INR (<1.2) APTT (22.0-30.0) sec Sodium (137-145) mmol/L Potassium (3.5-5.1) mmol/L Chloride (98-107) mmol/L Carbon Dioxide (22-30) mmol/L Anion Gap mmol/L BUN (9-20) mg/dL Creatinine (0.66-1.25) mg/dL Est GFR (CKD-EPI)AfAm (>60 ml/min/1.73 sqM) Est GFR (CKD-EPI)NonAf (>60 ml/min/1.73 sqM) Glucose (74-99) mg/dL POC Glucose (mg/dL) 149 H 150 H 234 H (70-110) mg/dL POC Glu Gold Plater ID Jonathan, Betsey Farooq, Durga Farooq, Durga Plasma Lactic Acid Ankit (0.7-2.0) mmol/L Calcium (8.4-10.2) mg/dL Total Bilirubin (0.2-1.3) mg/dL ALT (4-49) U/L Alkaline Phosphatase (38-126) U/L NT-Pro-B Natriuret Pep pg/mL Total Protein (6.3-8.2) g/dL Albumin (3.5-5.0) g/dL Procalcitonin (0.02-0.09) ng/mL Urine Color Urine Appearance (Clear) Urine pH (5.0-8.0) Ur Specific [place] (1.001-1.035) Urine Protein (Negative) Urine Glucose (UA) (Negative) Urine Ketones (Negative) Urine Blood (Negative) Urine Nitrite (Negative) Urine Bilirubin (Negative) Urine Urobilinogen (<2.0) mg/dL Ur Leukocyte Esterase (Negative) Urine RBC (0-5) /hpf Urine WBC (0-5) /hpf Hyaline Casts (0-2) /lpf Urine Mucus (None) /hpf Random Vancomycin ug/mL Influenza Type A (PCR) (Not Detectd) Influenza Type B (PCR) (Not Detectd) RSV (PCR) (Not Detectd) SARS-CoV-2 (PCR) (Not Detectd) 12/07/22 12/08/22 12/08/22 Range/Units 20:20 06:01 07:12 WBC (3.8-10.6) k/uL RBC (4.30-5.90) m/uL Hgb (13.0-17.5) gm/dL Hct (39.0-53.0) % MCV (80.0-100.0) fL MCH (25.0-35.0) pg MCHC (31.0-37.0) g/dL RDW (11.5-15.5) % Plt Count (150-450) k/uL MPV Neutrophils % % Lymphocytes % % Monocytes % % Eosinophils % % Basophils % % Neutrophils # (1.3-7.7) k/uL Lymphocytes # (1.0-4.8) k/uL Monocytes # (0-1.0) k/uL Eosinophils # (0-0.7) k/uL Basophils # (0-0.2) k/uL PT (9.0-12.0) sec INR (<1.2) APTT (22.0-30.0) sec Sodium 130 L (137-145) mmol/L Potassium 3.5 (3.5-5.1) mmol/L Chloride 97 L (98-107) mmol/L Carbon Dioxide 26 (22-30) mmol/L Anion Gap 7 mmol/L BUN 69 H (9-20) mg/dL Creatinine 3.63 H (0.66-1.25) mg/dL Est GFR (CKD-EPI)AfAm 18 (>60 ml/min/1.73 sqM) Est GFR (CKD-EPI)NonAf 16 (>60 ml/min/1.73 sqM) Glucose 165 H (74-99) mg/dL POC Glucose (mg/dL) 182 H 182 H (70-110) mg/dL POC Glu Gold Plater ID Olesya Billy Nathan Plasma Lactic Acid Ankit (0.7-2.0) mmol/L Calcium 8.2 L (8.4-10.2) mg/dL Total Bilirubin (0.2-1.3) mg/dL ALT (4-49) U/L Alkaline Phosphatase (38-126) U/L NT-Pro-B Natriuret Pep pg/mL Total Protein (6.3-8.2) g/dL Albumin (3.5-5.0) g/dL Procalcitonin (0.02-0.09) ng/mL Urine Color Urine Appearance (Clear) Urine pH (5.0-8.0) Ur Specific [place] (1.001-1.035) Urine Protein (Negative) Urine Glucose (UA) (Negative) Urine Ketones (Negative) Urine Blood (Negative) Urine Nitrite (Negative) Urine Bilirubin (Negative) Urine Urobilinogen (<2.0) mg/dL Ur Leukocyte Esterase (Negative) Urine RBC (0-5) /hpf Urine WBC (0-5) /hpf Hyaline Casts (0-2) /lpf Urine Mucus (None) /hpf Random Vancomycin 20.8 ug/mL Influenza Type A (PCR) (Not Detectd) Influenza Type B (PCR) (Not Detectd) RSV (PCR) (Not Detectd) SARS-CoV-2 (PCR) (Not Detectd) 12/08/22 12/08/22 12/08/22 Range/Units 11:37 16:38 20:23 WBC (3.8-10.6) k/uL RBC (4.30-5.90) m/uL Hgb (13.0-17.5) gm/dL Hct (39.0-53.0) % MCV (80.0-100.0) fL MCH (25.0-35.0) pg MCHC (31.0-37.0) g/dL RDW (11.5-15.5) % Plt Count (150-450) k/uL MPV Neutrophils % % Lymphocytes % % Monocytes % % Eosinophils % % Basophils % % Neutrophils # (1.3-7.7) k/uL Lymphocytes # (1.0-4.8) k/uL Monocytes # (0-1.0) k/uL Eosinophils # (0-0.7) k/uL Basophils # (0-0.2) k/uL PT (9.0-12.0) sec INR (<1.2) APTT (22.0-30.0) sec Sodium (137-145) mmol/L Potassium (3.5-5.1) mmol/L Chloride (98-107) mmol/L Carbon Dioxide (22-30) mmol/L Anion Gap mmol/L BUN (9-20) mg/dL Creatinine (0.66-1.25) mg/dL Est GFR (CKD-EPI)AfAm (>60 ml/min/1.73 sqM) Est GFR (CKD-EPI)NonAf (>60 ml/min/1.73 sqM) Glucose (74-99) mg/dL POC Glucose (mg/dL) 227 H 176 H 181 H (70-110) mg/dL POC Glu Gold Plater KRYSTAL Meier, Leatah Meier, Nevaeh Phan Plasma Lactic Acid Ankit (0.7-2.0) mmol/L Calcium (8.4-10.2) mg/dL Total Bilirubin (0.2-1.3) mg/dL ALT (4-49) U/L Alkaline Phosphatase (38-126) U/L NT-Pro-B Natriuret Pep pg/mL Total Protein (6.3-8.2) g/dL Albumin (3.5-5.0) g/dL Procalcitonin (0.02-0.09) ng/mL Urine Color Urine Appearance (Clear) Urine pH (5.0-8.0) Ur Specific [place] (1.001-1.035) Urine Protein (Negative) Urine Glucose (UA) (Negative) Urine Ketones (Negative) Urine Blood (Negative) Urine Nitrite (Negative) Urine Bilirubin (Negative) Urine Urobilinogen (<2.0) mg/dL Ur Leukocyte Esterase (Negative) Urine RBC (0-5) /hpf Urine WBC (0-5) /hpf Hyaline Casts (0-2) /lpf Urine Mucus (None) /hpf Random Vancomycin ug/mL Influenza Type A (PCR) (Not Detectd) Influenza Type B (PCR) (Not Detectd) RSV (PCR) (Not Detectd) SARS-CoV-2 (PCR) (Not Detectd) 12/09/22 12/09/22 12/09/22 Range/Units 06:05 08:23 11:31 WBC (3.8-10.6) k/uL RBC (4.30-5.90) m/uL Hgb (13.0-17.5) gm/dL Hct (39.0-53.0) % MCV (80.0-100.0) fL MCH (25.0-35.0) pg MCHC (31.0-37.0) g/dL RDW (11.5-15.5) % Plt Count (150-450) k/uL MPV Neutrophils % % Lymphocytes % % Monocytes % % Eosinophils % % Basophils % % Neutrophils # (1.3-7.7) k/uL Lymphocytes # (1.0-4.8) k/uL Monocytes # (0-1.0) k/uL Eosinophils # (0-0.7) k/uL Basophils # (0-0.2) k/uL PT (9.0-12.0) sec INR (<1.2) APTT (22.0-30.0) sec Sodium 133 L (137-145) mmol/L Potassium 3.4 L (3.5-5.1) mmol/L Chloride 95 L (98-107) mmol/L Carbon Dioxide 30 (22-30) mmol/L Anion Gap 8 mmol/L BUN 70 H (9-20) mg/dL Creatinine 3.45 H (0.66-1.25) mg/dL Est GFR (CKD-EPI)AfAm 19 (>60 ml/min/1.73 sqM) Est GFR (CKD-EPI)NonAf 17 (>60 ml/min/1.73 sqM) Glucose 159 H (74-99) mg/dL POC Glucose (mg/dL) 188 H 151 H (70-110) mg/dL POC Glu Gold Plater ID Nevaeh Castillo Diana Plasma Lactic Acid [place]kit (0.7-2.0) mmol/L Calcium 8.4 (8.4-10.2) mg/dL Total Bilirubin (0.2-1.3) mg/dL ALT (4-49) U/L Alkaline Phosphatase (38-126) U/L NT-Pro-B Natriuret Pep pg/mL Total Protein (6.3-8.2) g/dL Albumin (3.5-5.0) g/dL Procalcitonin (0.02-0.09) ng/mL Urine Color Urine Appearance (Clear) Urine pH (5.0-8.0) Ur Specific [place] (1.001-1.035) Urine Protein (Negative) Urine Glucose (UA) (Negative) Urine Ketones (Negative) Urine Blood (Negative) Urine Nitrite (Negative) Urine Bilirubin (Negative) Urine Urobilinogen (<2.0) mg/dL Ur Leukocyte Esterase (Negative) Urine RBC (0-5) /hpf Urine WBC (0-5) /hpf Hyaline Casts (0-2) /lpf Urine Mucus (None) /hpf Random Vancomycin ug/mL Influenza Type A (PCR) (Not Detectd) Influenza Type B (PCR) (Not Detectd) RSV (PCR) (Not Detectd) SARS-CoV-2 (PCR) (Not Detectd) 12/09/22 12/09/22 12/10/22 Range/Units 16:40 20:08 05:57 WBC (3.8-10.6) k/uL RBC (4.30-5.90) m/uL Hgb (13.0-17.5) gm/dL Hct (39.0-53.0) % MCV (80.0-100.0) fL MCH (25.0-35.0) pg MCHC (31.0-37.0) g/dL RDW (11.5-15.5) % Plt Count (150-450) k/uL MPV Neutrophils % % Lymphocytes % % Monocytes % % Eosinophils % % Basophils % % Neutrophils # (1.3-7.7) k/uL Lymphocytes # (1.0-4.8) k/uL Monocytes # (0-1.0) k/uL Eosinophils # (0-0.7) k/uL Basophils # (0-0.2) k/uL PT (9.0-12.0) sec INR (<1.2) APTT (22.0-30.0) sec Sodium (137-145) mmol/L Potassium (3.5-5.1) mmol/L Chloride (98-107) mmol/L Carbon Dioxide (22-30) mmol/L Anion Gap mmol/L BUN (9-20) mg/dL Creatinine (0.66-1.25) mg/dL Est GFR (CKD-EPI)AfAm (>60 ml/min/1.73 sqM) Est GFR (CKD-EPI)NonAf (>60 ml/min/1.73 sqM) Glucose (74-99) mg/dL POC Glucose (mg/dL) 155 H 176 H 140 H (70-110) mg/dL POC Glu Gold Plater ID Inocencio, Lizzy Castillo, Nevaeh Jonathan, Nevaeh Plasma Lactic Acid Ankit (0.7-2.0) mmol/L Calcium (8.4-10.2) mg/dL Total Bilirubin (0.2-1.3) mg/dL ALT (4-49) U/L Alkaline Phosphatase (38-126) U/L NT-Pro-B Natriuret Pep pg/mL Total Protein (6.3-8.2) g/dL Albumin (3.5-5.0) g/dL Procalcitonin (0.02-0.09) ng/mL Urine Color Urine Appearance (Clear) Urine pH (5.0-8.0) Ur Specific [place] (1.001-1.035) Urine Protein (Negative) Urine Glucose (UA) (Negative) Urine Ketones (Negative) Urine Blood (Negative) Urine Nitrite (Negative) Urine Bilirubin (Negative) Urine Urobilinogen (<2.0) mg/dL Ur Leukocyte Esterase (Negative) Urine RBC (0-5) /hpf Urine WBC (0-5) /hpf Hyaline Casts (0-2) /lpf Urine Mucus (None) /hpf Random Vancomycin ug/mL Influenza Type A (PCR) (Not Detectd) Influenza Type B (PCR) (Not Detectd) RSV (PCR) (Not Detectd) SARS-CoV-2 (PCR) (Not Detectd) 12/10/22 12/10/22 12/10/22 Range/Units 07:01 07:01 11:45 WBC 13.1 H (3.8-10.6) k/uL RBC 4.30 (4.30-5.90) m/uL Hgb 13.1 (13.0-17.5) gm/dL Hct 41.2 (39.0-53.0) % MCV 95.9 (80.0-100.0) fL MCH 30.6 (25.0-35.0) pg MCHC 31.9 (31.0-37.0) g/dL RDW 14.6 (11.5-15.5) % Plt Count 285 (150-450) k/uL MPV 7.9 Neutrophils % 82 % Lymphocytes % 11 % Monocytes % 5 % Eosinophils % 0 % Basophils % 0 % Neutrophils # 10.8 H (1.3-7.7) k/uL Lymphocytes # 1.4 (1.0-4.8) k/uL Monocytes # 0.6 (0-1.0) k/uL Eosinophils # 0.1 (0-0.7) k/uL Basophils # 0.0 (0-0.2) k/uL PT (9.0-12.0) sec INR (<1.2) APTT (22.0-30.0) sec Sodium 134 L (137-145) mmol/L Potassium 3.6 (3.5-5.1) mmol/L Chloride 96 L (98-107) mmol/L Carbon Dioxide 27 (22-30) mmol/L Anion Gap 11 mmol/L BUN 72 H (9-20) mg/dL Creatinine 3.32 H (0.66-1.25) mg/dL Est GFR (CKD-EPI)AfAm 20 (>60 ml/min/1.73 sqM) Est GFR (CKD-EPI)NonAf 17 (>60 ml/min/1.73 sqM) Glucose 139 H (74-99) mg/dL POC Glucose (mg/dL) 152 H (70-110) mg/dL POC Glu Gold Plater ID Ashly Rausch Plasma Lactic Acid Ankit (0.7-2.0) mmol/L Calcium 8.5 (8.4-10.2) mg/dL Total Bilirubin (0.2-1.3) mg/dL ALT (4-49) U/L Alkaline Phosphatase (38-126) U/L NT-Pro-B Natriuret Pep pg/mL Total Protein (6.3-8.2) g/dL Albumin (3.5-5.0) g/dL Procalcitonin (0.02-0.09) ng/mL Urine Color Urine Appearance (Clear) Urine pH (5.0-8.0) Ur Specific [place] (1.001-1.035) Urine Protein (Negative) Urine Glucose (UA) (Negative) Urine Ketones (Negative) Urine Blood (Negative) Urine Nitrite (Negative) Urine Bilirubin (Negative) Urine Urobilinogen (<2.0) mg/dL Ur Leukocyte Esterase (Negative) Urine RBC (0-5) /hpf Urine WBC (0-5) /hpf Hyaline Casts (0-2) /lpf Urine Mucus (None) /hpf Random Vancomycin ug/mL Influenza Type A (PCR) (Not Detectd) Influenza Type B (PCR) (Not Detectd) RSV (PCR) (Not Detectd) SARS-CoV-2 (PCR) (Not Detectd) CBC 12/10/22 Range/Units 07:01 WBC 13.1 H (3.8-10.6) k/uL RBC 4.30 (4.30-5.90) m/uL Hgb 13.1 (13.0-17.5) gm/dL Hct 41.2 (39.0-53.0) % Plt Count 285 (150-450) k/uL Comprehensive Metabolic Panel 12/10/22 Range/Units 07:01 Sodium 134 L (137-145) mmol/L Potassium 3.6 (3.5-5.1) mmol/L Chloride 96 L (98-107) mmol/L Carbon Dioxide 27 (22-30) mmol/L BUN 72 H (9-20) mg/dL Creatinine 3.32 H (0.66-1.25) mg/dL Glucose 139 H (74-99) mg/dL Calcium 8.5 (8.4-10.2) mg/dL Current Medications Generic Name Dose Route Start Last Admin Trade Name Freq PRN Reason Stop Dose Admin Acetaminophen 500 mg 12/07/22 18:35 12/09/22 17:43 Acetaminophen Tab 500 Mg Tab PO 500 mg Q6HR PRN Administration Fever and/ or Pain Albuterol Sulfate 2 puff 12/06/22 09:59 12/09/22 08:43 Albuterol Hfa Inhaler INHALATION 2 puff RT-QID PRN Administration Shortness Of Breath Or Wheezing Allopurinol 100 mg 12/07/22 21:00 12/09/22 20:42 Allopurinol 100 Mg Tab PO 100 mg BID OWEN Administration Apixaban 2.5 mg 12/06/22 21:00 12/10/22 09:36 Apixaban 2.5 Mg Tablet PO 2.5 mg BID OWEN Administration Protocol Aspirin 81 mg 12/06/22 21:00 12/09/22 20:41 Aspirin 81 Mg PO 81 mg HS OWEN Administration Atorvastatin Calcium 10 mg 12/06/22 21:00 12/09/22 20:41 Atorvastatin 10 Mg Tab PO 10 mg HS OWEN Administration Budesonide/Formoterol Fumarate 1 puff 12/07/22 20:00 12/10/22 08:21 Symbicort 80-4.5 Mcg Inhaler INHALATION Not Given RT-BID OWEN Calcitriol 0.5 mcg 12/09/22 21:00 12/09/22 20:41 Calcitriol 0.25 Mcg Cap PO 0.5 mcg SUTH@2100 [facility] Administration Ergocalciferol 1,250 mcg 12/08/22 21:00 12/08/22 23:34 Ergocalciferol 1,250 Mcg (50,000 Iu) Capsule PO 1,250 mcg MOWEFR@2100 [facility] Administration Famotidine 20 mg 12/08/22 09:00 12/10/22 09:36 Famotidine 20 Mg Tab PO 20 mg DAILY OW[facility] Administration Furosemide 40 mg 12/06/22 21:00 12/09/22 20:43 Furosemide 10 Mg/Ml 4 Ml Vial IV 40 mg Q12HR [facility] Administration Nafcillin Sodium 2 gm/ 100 mls @ 50 mls/hr 12/07/22 16:00 12/10/22 08:55 Dextrose/Water IVPB 50 mls/hr Q4HR OW[facility] Administration Protocol Melatonin 5 mg 12/07/22 21:00 12/09/22 20:42 Melatonin 5 Mg Tablet PO 5 mg HS OWEN Administration Metoprolol Tartrate 25 mg 12/06/22 21:00 12/09/22 20:41 Metoprolol Tartrate 25 Mg Tab PO 25 mg HS OWEN Administration Metoprolol Tartrate 50 mg 12/06/22 10:15 12/10/22 09:36 Metoprolol Tartrate 50 Mg Tab PO 50 mg DAILY OWEN Administration Intake and Output 12/09/22 12/10/22 12/10/22 22:59 06:59 14:59 Intake Total 956 Output Total 155 1300 Balance 801 -1300 Intake: Oral 956 Output: Urine 155 1300 Other: Voiding Method Urinal Urinal Urinal # Voids 1 # Bowel Movements 1 Weight 124.6 kg 12/10/22 07:01 12/10/22 07:01
--- NOTE | 2022-12-10 11:55 | P.TEE ---
Description of Procedure(s): Procedure performed: Transesophageal Echocardiogram with color flow doppler, pulsed wave doppler and continuous wave doppler, moderate conscious sedation Moderate conscious sedation: Moderate conscious sedation was supplied with direct supervision of myself using Versed and Fentanyl. Complications: none Indications: Persistent bacteremia PROCEDURE: After the risks, benefits and alternatives of the above mentioned procedure was explained in detail with the patient, informed consent was obtained. Patient was brought to the lab in a fasting state. Patient was given IV Versed and Fentanyl for sedation. The throat was sprayed with Hurricane to anesthetize the throat. A lubricated Omni probe was then introduced into the esophagus and stomach and multiple views were obtained. 2D echo with color flow doppler, pulsed wave doppler and continuous wave doppler was utilized. Agitated saline bubbles were injected to assess for any intra-atrial shunt. The probe was then removed. Patient tolerated the procedure well. Patient was transferred to the post procedure area in stable and satisfactory condition. FINDINGS: 1. The aortic valve is tricuspid and mild aortic sclerosis. There is mild to moderate aortic insufficiency. There is a 0.7 x 0.8 cm echodensity of the noncoronary cusp consistent with vegetation. 2. The mitral valve appears be normal with trace mitral regurgitation 3. Tricuspid valve appears to be normal. 4. The interatrial septum is intact. No evidence of PFO. 5. Left atrial appendage is free of clot. 6. Left ventricular ejection fraction is 45-50% with mild global hypokinesis.
[2022-12-10] MEDS: allopurinoL 100 MG TAB PO SCH ×2 (12:01→20:05)
[2022-12-10] MEDS: FUROSEMIDE 10 MG/ML 4 ML VIAL IV SCH ×2 (12:01→20:04)
[2022-12-10] MEDS: ACETAMINOPHEN TAB 500 MG TAB PO PRN ×2 (14:50→20:05)
--- NOTE | 2022-12-10 15:09 | P.PN ---
Subjective Patient is seen for follow-up for acute kidney injury and chronic kidney disease. Patient was admitted to the hospital with mental status changes. Renal function is about the same as on discharge from last hospitalization. Serum creatinine improved from about 4.0 on 11/22/2022 to 3.3 today. Patient remains on IV Lasix. Blood cultures were positive for MRSA, currently maintained on cefazolin. Having KARTHIK to r/o vegetation as bacteremia is persistent. Objective - Vital Signs Vital signs: Vital Signs Temp 98.1 F 12/10/22 07:57 Pulse 101 H 12/10/22 14:00 Resp 20 12/10/22 14:00 BP 129/75 12/10/22 11:46 Pulse Ox 95 12/10/22 11:46 FiO2 Intake & Output 12/09/22 12/10/22 12/10/22 18:59 06:59 18:59 Intake Total 1196 Output Total 655 1300 400 Balance 541 -1300 -400 Weight 124.6 kg Intake: Oral 1196 Output: Urine 655 1300 400 Other: Voiding Method Urinal Urinal Urinal # Voids 1 1 # Bowel Movements 1 1 - Exam Patient is awake, comfortable, no acute distress. Examination of the heart S1 and S2 Examination of the lungs bilateral breath sounds are heard Abdomen is soft nontender Examination of lower extremity shows chronic edema with chronic skin changes [employer] exam grossly intact - Labs CBC & Chem 7: 12/10/22 07:01 12/10/22 07:01 Labs: Abnormal Lab Results - Last 24 Hours (Table) 12/09/22 12/09/22 12/10/22 Range/Units 16:40 20:08 05:57 WBC (3.8-10.6) k/uL Neutrophils # (1.3-7.7) k/uL Sodium (137-145) mmol/L Chloride (98-107) mmol/L BUN (9-20) mg/dL Creatinine (0.66-1.25) mg/dL Glucose (74-99) mg/dL POC Glucose (mg/dL) 155 H 176 H 140 H (70-110) mg/dL 12/10/22 12/10/22 12/10/22 Range/Units 07:01 07:01 11:45 WBC 13.1 H (3.8-10.6) k/uL Neutrophils # 10.8 H (1.3-7.7) k/uL Sodium 134 L (137-145) mmol/L Chloride 96 L (98-107) mmol/L BUN 72 H (9-20) mg/dL Creatinine 3.32 H (0.66-1.25) mg/dL Glucose 139 H (74-99) mg/dL POC Glucose (mg/dL) 152 H (70-110) mg/dL Microbiology - Last 24 Hours (Table) 12/09/22 08:23 Blood Culture Gram Stain - Preliminary Blood 12/09/22 08:23 Blood Culture - Final Blood 12/08/22 07:16 Blood Culture Gram Stain - Preliminary Blood Blood Culture - Preliminary Presumptive Staph aureus 12/07/22 10:26 Blood Culture Gram Stain - Final Blood Blood Culture - Final Staphylococcus aureus Assessment and Plan Assessment: 1. 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 Serum creatinine staying at about 3.6-3.7 mg/dL, improved from last admission. No hydronephrosis noted on ultrasound during the last admission. Left kidney wasn't assessed due to patient's position and size. Renal function is improving 2. Chronic diastolic CHF with mitral and tricuspid regurgitation and [id number] aortic regurgitation, currently stable and improved from last admission about 1 month ago. 3. CK D mineral bone disorder maintained on calcitriol 4. Hyponatremia with volume overload. Status post Samsca 5. Staph aureus bacteremia maintained on cefazolin, having KARTHIK to r/o vegetation. Plan: Continue with IV Lasix Monitor urine output Repeat labs in a.m. continue with antibiotics
--- NOTE | 2022-12-10 15:46 | P.PN ---
Progress Note - Text Progress Note Date: 12/10/22 This is a pleasant 72-year-old patient who follows with Dr. Holder. Chronic stable medical conditions include atrial fibrillation, COPD, diabetes, hyperlipidemia, CHF-preserved EF hypertension, osteoarthritis, CK D, sleep apnea does not use CPAP, gout, lymphedema arthritis chronic lymphedema - follows with a physician for pumping out of the area. Patient came in with comments of altered mental status shortness of breath and the bilateral pedal edema. Patient past medical history significant for chronic diastolic dysfunction was on diuretics at home. Patient is found to be in heart failure exacerbation chest x-ray showed significant pulmonary edema with bilateral pleural effusions. Patient doesn't have any fever did have leukocytosis of 21,600. Patient is alert oriented 3. Patient was admitted and was treated for CHF as well as pneumonia believing that patient has atelectasis or pneumonia and patient was receiving vancomycin. Patient does drink alcohol quite a bit but not a daily basis. Patient has elevated highly elevated BNP of around 17,000. Does have history of chronic kidney disease stage IV with baseline creatinine around 2.5 present creatinine is 3.97 and patient is also hyponatremic. 12/07/2022: I assumed care of the patient today. Appetite is fair. No cough. Had a bowel movement. Patient does state he had a fever at home. Up in a chair today. Blood cultures positive for Staphylococcus aureus. Seen by ID. Vancomycin changed over to nafcillin. Denies any new urinary symptoms. 12/08/2022: Up in a recliner. Complaining of discomfort in both the forearms. Wants to go home. Explained importance of staying here. Discussed with the patient and the at the bedside. Remains on IV Lasix. IV nafcillin. Eating some. In negative fluid balance. 12/09/2022: Up in a recliner. Eating well. Repeat blood cultures remained positive. 2-D echo yesterday shows echodensity on the aortic valve suspicious for vegetation. Discussed with ID. KARTHIK requested further defining the path anatomy. IV nafcillin. 12/10/2022: Underwent KARTHIK today. 0.8 cm vegetation on aortic valve. No destruction reported. Discussed with ID. Continue IV nafcillin 2 cultures until become negative. Active Medications Acetaminophen (Acetaminophen Tab 500 Mg Tab) 500 mg PO Q6HR PRN PRN Reason: Fever and/ or Pain Last Admin: 12/10/22 14:50 Dose: 500 mg Albuterol Sulfate (Albuterol Hfa Inhaler) 2 puff INHALATION RT-QID PRN PRN Reason: Shortness Of Breath Or Wheezing Last Admin: 12/09/22 08:43 Dose: 2 puff Allopurinol (Allopurinol 100 Mg Tab) 100 mg PO BID [facility] Last Admin: 12/10/22 12:01 Dose: 100 mg Apixaban (Apixaban 2.5 Mg Tablet) 2.5 mg PO BID [facility]; Protocol Last Admin: 12/10/22 09:36 Dose: 2.5 mg Aspirin (Aspirin 81 Mg) 81 mg PO [facility] Last Admin: 12/09/22 20:41 Dose: 81 mg Atorvastatin Calcium (Atorvastatin 10 Mg Tab) 10 mg PO [facility] Last Admin: 12/09/22 20:41 Dose: 10 mg Budesonide/Formoterol Fumarate (Symbicort 80-4.5 Mcg Inhaler) 1 puff INHALATION RT-BID [facility] Last Admin: 12/10/22 08:21 Dose: Not Given Calcitriol (Calcitriol 0.25 Mcg Cap) 0.5 mcg PO SUTH@2100 [facility] Last Admin: 12/09/22 20:41 Dose: 0.5 mcg Ergocalciferol (Ergocalciferol 1,250 Mcg (50,000 Iu) Capsule) 1,250 mcg PO MOWEFR@2100 [facility] Last Admin: 12/08/22 23:34 Dose: 1,250 mcg Famotidine (Famotidine 20 Mg Tab) 20 mg PO DAILY [facility] Last Admin: 12/10/22 09:36 Dose: 20 mg Furosemide (Furosemide 10 Mg/Ml 4 Ml Vial) 40 mg IV Q12HR [facility] Last Admin: 12/10/22 12:01 Dose: 40 mg Nafcillin Sodium 2 gm/ (Dextrose/Water) 100 mls @ 50 mls/hr IVPB Q4HR [facility]; Protocol Last Admin: 12/10/22 12:28 Dose: 50 mls/hr Melatonin (Melatonin 5 Mg Tablet) 5 mg PO [facility] Last Admin: 12/09/22 20:42 Dose: 5 mg Metoprolol Tartrate (Metoprolol Tartrate 25 Mg Tab) 25 mg PO [facility] Last Admin: 12/09/22 20:41 Dose: 25 mg Metoprolol Tartrate (Metoprolol Tartrate 50 Mg Tab) 50 mg PO DAILY [facility] Last Admin: 12/10/22 09:36 Dose: 50 mg Past medical history to include: Atrial fibrillation, COPD, diabetes, DVT, hypertension, hyperlipidemia, ID, osteoarthritis, CKD, obstructive sleep apnea does not use CPAP, DJD, legally blind bilaterally, GERD, varicose veins, lymphedema back surgery. CHF with diastolic dysfunction Social history: Lives with his . Does use a 4W walker. Smoked 2 packs a day for 45 years stopped in 2016. Occasional marijuana and CBD ordered. Alcohol rarely. Physical examination: VITAL SIGNS: 98.1, 101, 22, 1 58 x 75, 91% room air GENERAL: Laying in bed, tired Bruising. EYES: Pupils equal. Conjunctiva normal. HEENT: External appearance of nose and ears normal, oral cavity grossly normal. NECK: JVD possibly raised; masses not palpable. HEART: First and second heart sounds are normal; edema present. LUNGS:[ Respiratory rate increased; decreased breath sounds. ABDOMEN: Soft, nontender, liver spleen not palpable, no masses palpable. PSYCH: Tired but able to answer questions MUSCULOSKELETAL:No Clubbing/cyanosis;muscles-grossly intact. OA EXTREMITIES: Stockings lower extremity LYMPHATICS: Lymphedema lower extremity INVESTIGATIONS, reviewed in the clinical context: KARTHIK: [December 10]: Mild to moderate aortic insufficiency. 0.7 x 0.8 cm echodensity of the known coronary skull. Consistent with regurgitation. EF 45- 50%. 12/10/2022: White count 13.1 hemoglobin 13.1 potassium 3.6 BUN 72 creatinine 3.3 to 12/09/2022: Sodium 133 potassium 3.4 BUN 70 creatinine 3.45 2-D echocardiogram [12/07/2022] EF 50-55%. Pwnw-tu-[id number] MR.echodensity on the aortic valve suspicious for vegetation 12/08/2022: Sodium 1:30 potassium 3.5 BUN 69 creatinine 3.63 12/07/2022: White count 18.1 hemoglobin 11.6 platelets 26 sodium 129 potassium 3 BUN [address] brain: Cerebral atrophy Previous labs 11/19/2022: Potassium 3.6. 49 creatinine 3.38 2-D echocardiogram: [11/17/2022 ] Normal LV size and function. Mild to moderate AR. Assessment and plan: -Sepsis, with positive blood culture staph aureus, vegetation on aortic valve. POA,: Slow to respond Initial blood culture positive from December 05. 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 IV nafcillin -Acute hypoxic respiratory failure from CHF: Better Oxygen supplement -Acute on chronic congestive heart failure exacerbation. From diastolic dysfunction. Preserved EF.: Slow to respond Lasix 40 mg IV every 12. Strict I's and O's. Fluid restriction 1500 mL a day. Cardiology following -Chronic kidney disease stage IV secondary to diabetic and kidney disease and cardiorenal syndrome. Creatinine 3.9 from recently -Persistent atrial fibrillation, rate controlled Lopressor. Eliquis. - COPD in a previous smoker Albuterol 4 puffs 4 times a day when necessary. Symbicort 60/4.5 one puff twice a day -Diabetes mellitus type 2, Diet controlled. Follow Accu-Cheks with sliding scale -Hyperlipidemia Zocor -Essential hypertension Lopressor. -Primary osteoarthritis Tylenol as needed -Obstructive sleep apnea does not use CPAP -Chronic lower extremity lymphedema Continue with stockings -Chronic gout Allopurinol 100 mg twice a day -Full code IV Lasix. Symbicort. IV nafcillin . KARTHIK done. Continue IV nafcillin. Other medications to continue.
--- NOTE | 2022-12-10 15:49 | P.PN ---
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 Patient is status post KARTHIK completed 12/10/2022 with evidence of aortic valve endocarditis no mention of any abscess On today's evaluation that is 12/10/2022, the patient continues to be afebrile, the patient is breathing comfortably on 2 L nasal cannula oxygen, the patient denies chest pain shortness of breath, the patient did have occasional cough no abdominal pain or diarrhea Objective - Vital Signs Vital signs: Vital Signs Temp 98.1 F 12/10/22 07:57 Pulse 101 H 12/10/22 11:46 Resp 20 12/10/22 11:46 BP 129/75 12/10/22 11:46 Pulse Ox 95 12/10/22 11:46 FiO2 Intake & Output 12/09/22 12/10/22 12/10/22 18:59 06:59 18:59 Intake Total 1196 Output Total 655 1300 400 Balance 541 -1300 -400 Weight 124.6 kg Intake: Oral 1196 Output: Urine 655 1300 400 Other: Voiding Method Urinal Urinal Urinal # Voids 1 1 # Bowel Movements 1 1 - Exam GENERAL DESCRIPTION: An elderly male lying in bed in no distress RESPIRATORY SYSTEM: Unlabored breathing , decreased breath sounds at bases HEART: S1 S2 regular rate and rhythm , ABDOMEN: Soft , no tenderness EXTREMITIES: No edema feet - Labs CBC & Chem 7: 12/10/22 07:01 12/10/22 07:01 Labs: Abnormal Lab Results - Last 24 Hours (Table) 12/09/22 12/09/22 12/10/22 Range/Units 16:40 20:08 05:57 WBC (3.8-10.6) k/uL Neutrophils # (1.3-7.7) k/uL Sodium (137-145) mmol/L Chloride (98-107) mmol/L BUN (9-20) mg/dL Creatinine (0.66-1.25) mg/dL Glucose (74-99) mg/dL POC Glucose (mg/dL) 155 H 176 H 140 H (70-110) mg/dL 12/10/22 12/10/22 12/10/22 Range/Units 07:01 07:01 11:45 WBC 13.1 H (3.8-10.6) k/uL Neutrophils # 10.8 H (1.3-7.7) k/uL Sodium 134 L (137-145) mmol/L Chloride 96 L (98-107) mmol/L BUN 72 H (9-20) mg/dL Creatinine 3.32 H (0.66-1.25) mg/dL Glucose 139 H (74-99) mg/dL POC Glucose (mg/dL) 152 H (70-110) mg/dL Microbiology - Last 24 Hours (Table) 12/09/22 08:23 Blood Culture Gram Stain - Preliminary Blood 12/09/22 08:23 Blood Culture - Final Blood 12/08/22 07:16 Blood Culture Gram Stain - Preliminary Blood Blood Culture - Preliminary Presumptive Staph aureus 12/07/22 10:26 Blood Culture Gram Stain - Final Blood Blood Culture - Final Staphylococcus aureus Assessment and Plan (1) MSSA bacteremia Current Visit: Yes Status: Acute Code(s): R78.81 - BACTEREMIA; B95.61 - METHICILLIN SUSCEP STAPH INFCT CAUSING DIS CLASSD [id number] SNOMED Code(s): 925393164 (2) Aortic valve endocarditis Current Visit: Yes Status: Acute Code(s): I35.8 - OTHER NONRHEUMATIC AORTIC VALVE DISORDERS SNOMED Code(s): 24904370 Plan: 1patient with MSSA bacteremia in this patient presented to hospital with mental status changes also have complaint of increasing shortness of breath patient currently do not have any open wound or cellulitis chest x-ray was suggestive of pneumonia urine has been negative for any pyuria and abdominal soft examination with concern for possible endovascular source. 2blood cultures will be repeated daily to document clearance of bacteremia , blood culture from 12/10/2019 are positive 3- echocardiogram did show evidence of possible aortic valve endocarditis. KARTHIK has confirmed the finding of endocarditis involving the aortic valve, but no mention of any abscess 4patient continue with Naficillin 2 g every 4 hours, unable to add rifampin as the patient is on Eliquis Time with Patient: Less than 30
[2022-12-10 16:23] LABS: Glucose,Whole Blood 185 mg/dL (70-110)
[2022-12-10 19:51] LABS: Glucose,Whole Blood 229 mg/dL (70-110)
[2022-12-10] MEDS: ASPIRIN 81 MG PO SCH (20:04)
[2022-12-10] MEDS: ATORVASTATIN 10 MG TAB PO SCH (20:05)
[2022-12-10] MEDS: MELATONIN 5 MG TABLET PO SCH (20:05)
[2022-12-10] MEDS: ERGOCALCIFEROL 1,250 MCG (50,000 IU) CAPSULE PO SCH (20:05)
[2022-12-10] MEDS: METOPROLOL TARTRATE 25 MG TAB PO SCH (20:05)
[2022-12-11] MEDS: NAFCILLIN 2 GM in DEXTROSE 5% IN WATER 100 ML IVPB SCH ×14 (00:23→23:18)
[2022-12-11 06:09] LABS: Glucose,Whole Blood 139 mg/dL (70-110)
[2022-12-11] MEDS: SYMBICORT 80-4.5 MCG INHALER INHALATION SCH ×2 (07:52→20:26)
--- NOTE | 2022-12-11 10:14 | P.PN ---
Subjective Patient is seen in follow-up for acute kidney injury on chronic kidney disease. Renal function fairly stable last couple of days. On IV Lasix. Nonoliguric. Denies chest pain or shortness of breath. No vomiting or diarrhea. Vital signs are stable. General: No acute distress. HEENT: Head exam is unremarkable. LUNGS: No audible rhonchi or wheezes. HEART: Rate and Rhythm are regular. ABDOMEN: Obese. Nontender. EXTREMITITES: Trace edema. Objective - Vital Signs Vital signs: Vital Signs Temp 97.5 F L 12/11/22 03:40 Pulse 78 12/11/22 03:40 Resp 16 12/11/22 03:40 BP 132/73 12/11/22 03:40 Pulse Ox 95 12/11/22 03:40 FiO2 Intake & Output 12/10/22 12/11/22 12/11/22 18:59 06:59 18:59 Intake Total 240 Output Total 400 650 Balance -400 -410 Weight 123.5 kg Intake: Oral 240 Output: Urine 400 650 Other: Voiding Method Urinal Urinal # Voids 1 # Bowel Movements 1 - Labs CBC & Chem 7: 12/10/22 07:01 12/10/22 07:01 Labs: Abnormal Lab Results - Last 24 Hours (Table) 12/10/22 12/10/22 12/10/22 Range/Units 11:45 16:21 19:50 POC Glucose (mg/dL) 152 H 185 H 229 H (70-110) mg/dL 12/11/22 Range/Units 06:08 POC Glucose (mg/dL) 139 H (70-110) mg/dL Microbiology - Last 24 Hours (Table) 12/10/22 07:01 Blood Culture - Preliminary Blood No Growth after 24 hours 12/09/22 08:23 Blood Culture Gram Stain - Preliminary Blood Blood Culture - Preliminary Staphylococcus aureus 12/09/22 08:23 Blood Culture - Final Blood 12/08/22 07:16 Blood Culture Gram Stain - Preliminary Blood Blood Culture - Preliminary Presumptive Staph aureus Assessment and Plan Plan: Assessment: 1. Acute kidney injury mostly prerenal secondary to cardiorenal syndrome and sepsis. Creatinine 3.32 yesterday. 2. Chronic kidney disease stage IV. Baseline creatinine 3-3.5 secondary to diabetic kidney disease. 3. Volume overload. Improved with diuresis. 4. Staph aureus bacteremia. Aortic valve vegetation noted on KARTHIK. On antibiotics. 5. Acute on chronic diastolic CHF and mild to moderate mitral regurgitation, mild aortic and tricuspid regurgitation. 6. Diabetes mellitus. 7. Chronic kidney disease mineral bone disease maintained on calcitriol. Plan: Change IV Lasix to oral torsemide 40 mg once daily. Maintain low salt diet and fluid restriction. Avoid nephrotoxins. Follow-up cultures. Labs in the morning.
[2022-12-11] MEDS: METOPROLOL TARTRATE 50 MG TAB PO SCH (10:22)
[2022-12-11] MEDS: allopurinoL 100 MG TAB PO SCH ×2 (10:22→20:12)
[2022-12-11] MEDS: FAMOTIDINE 20 MG TAB PO SCH (10:22)
[2022-12-11] MEDS: FUROSEMIDE 10 MG/ML 4 ML VIAL IV SCH (10:22)
[2022-12-11] MEDS: APIXABAN 2.5 MG TABLET PO SCH ×2 (10:22→20:12)
[2022-12-11 11:27] LABS: Glucose,Whole Blood 196 mg/dL (70-110)
--- NOTE | 2022-12-11 13:17 | P.PN ---
Subjective Progress Note Date: 12/11/22 HISTORY OF PRESENTING ILLNESS Patient is a pleasant 72-year-old male with history of atrial fibrillation, COPD, diabetes mellitus type 2, DVT, hypertension, hyperlipidemia, see daily. Patient initially presented 12/05/2022 with altered mental status. Prior hospitalization 1 month prior to this with bilateral edema and pleural effusions. He was found to have elevated white blood cell count up to 21,000 and eventually diagnosed with staph aureus bacteremia. Cardiology was asked to evaluate for KARTHIK to evaluate for persistent bacteremia. 2-D echo 12/07/2022 shows normal left ventricular ejection fraction with echodensity on the non- coronary cusp of the aortic valve with mild to moderate aortic insufficiency. He previously followed in the office with Dr Avila. 12/11 Patient seen and examined, out of bed in chair. Denies any chest pain or shortness of breath. Denies fever or chills. Has a decreased appitite. KARTHIK shows aortic vegetation. PHYSICAL EXAMINATION Vital signs reviewed. CONSTITUTIONAL: No apparent distress, chronically ill appearing. HEENT: Head is normocephalic. Pupils are equal, round. Sclerae anicteric. Mucous membranes of the mouth are moist. No JVD. No carotid bruit. CHEST EXAMINATION: Lungs are clear to auscultation. No chest wall tenderness is noted on palpation or with deep breathing. HEART EXAMINATION: Irregular rate and rhythm. S1, S2 heard. No murmurs, gallops or rub. ABDOMEN: Soft, nontender. Positive bowel sounds. EXTREMITIES: 2+ peripheral pulses, 1+ lower extremity edema and no calf tenderness. NEUROLOGIC EXAMINATION: Patient is awake, alert ASSESSMENT 1. Sepsis with staph aureus bacteremia 2. Echo density of aortic valve concerning for vegetation 3. Acute on chronic kidney disease 4. Chronic diastolic heart failure 5. Mild to moderate aortic regurgitation 6. Hypertension 7. Persistent atrial fibrillation 8. Hyperlipidemia 9. Non-STEMI, likely type II mechanism related to sepsis PLAN Continue current supportive care with Eliquis, Metoprolol. Elevated troponins appear most likely related to type 2 mechanism related to sepsis. KARTHIK does show vegetation, no indications for surgery, continue antibiotics as per ID. OK to DC from cardiology standpoint. Cardiology to sign off. Call with any quuestions. Objective - Vital Signs Vital signs: Vital Signs Temp 97.5 F L 12/11/22 08:00 Pulse 86 12/11/22 08:00 Resp 18 12/11/22 08:00 BP 179/72 12/11/22 08:00 Pulse Ox 98 12/11/22 08:00 FiO2 Intake & Output 12/10/22 12/11/22 12/11/22 18:59 06:59 18:59 Intake Total 480 Output Total 400 650 Balance -400 -170 Weight 123.5 kg Intake: Oral 480 Output: Urine 400 650 Other: Voiding Method Urinal Urinal Urinal # Voids 1 # Bowel Movements 1 - Labs CBC & Chem 7: 12/10/22 07:01 12/10/22 07:01 Labs: Abnormal Lab Results - Last 24 Hours (Table) 12/10/22 12/10/22 12/11/22 Range/Units 16:21 19:50 06:08 POC Glucose (mg/dL) 185 H 229 H 139 H (70-110) mg/dL 12/11/22 Range/Units 11:26 POC Glucose (mg/dL) 196 H (70-110) mg/dL Microbiology - Last 24 Hours (Table) 12/10/22 07:01 Blood Culture - Preliminary Blood No Growth after 24 hours 12/09/22 08:23 Blood Culture Gram Stain - Preliminary Blood Blood Culture - Preliminary Staphylococcus aureus 12/09/22 08:23 Blood Culture - Final Blood
[2022-12-11] MEDS: ACETAMINOPHEN TAB 500 MG TAB PO PRN (14:26)
[2022-12-11 16:45] LABS: Glucose,Whole Blood 177 mg/dL (70-110)
--- NOTE | 2022-12-11 17:11 | P.PN ---
Progress Note - Text Progress Note Date: 12/11/22 This is a pleasant 72-year-old patient who follows with Dr. Holder. Chronic stable medical conditions include atrial fibrillation, COPD, diabetes, hyperlipidemia, CHF-preserved EF hypertension, osteoarthritis, CK D, sleep apnea does not use CPAP, gout, lymphedema arthritis chronic lymphedema - follows with a physician for pumping out of the area. Patient came in with comments of altered mental status shortness of breath and the bilateral pedal edema. Patient past medical history significant for chronic diastolic dysfunction was on diuretics at home. Patient is found to be in heart failure exacerbation chest x-ray showed significant pulmonary edema with bilateral pleural effusions. Patient doesn't have any fever did have leukocytosis of 21,600. Patient is alert oriented 3. Patient was admitted and was treated for CHF as well as pneumonia believing that patient has atelectasis or pneumonia and patient was receiving vancomycin. Patient does drink alcohol quite a bit but not a daily basis. Patient has elevated highly elevated BNP of around 17,000. Does have history of chronic kidney disease stage IV with baseline creatinine around 2.5 present creatinine is 3.97 and patient is also hyponatremic. 12/07/2022: I assumed care of the patient today. Appetite is fair. No cough. Had a bowel movement. Patient does state he had a fever at home. Up in a chair today. Blood cultures positive for Staphylococcus aureus. Seen by ID. Vancomycin changed over to nafcillin. Denies any new urinary symptoms. 12/08/2022: Up in a recliner. Complaining of discomfort in both the forearms. Wants to go home. Explained importance of staying here. Discussed with the patient and the at the bedside. Remains on IV Lasix. IV nafcillin. Eating some. In negative fluid balance. 12/09/2022: Up in a recliner. Eating well. Repeat blood cultures remained positive. 2-D echo yesterday shows echodensity on the aortic valve suspicious for vegetation. Discussed with ID. KARTHIK requested further defining the path anatomy. IV nafcillin. 12/10/2022: Underwent KARTHIK today. 0.8 cm vegetation on aortic valve. No destruction reported. Discussed with ID. Continue IV nafcillin 2 cultures until become negative. 12/11/2022: Up in a chair. Comfortable. Getting IV nafcillin. Care was discussed with the patient and the . Need for prolonged antibiotics. Blood cultures positive from December 09. Awake. Comfortable. Answering questions Active Medications Acetaminophen (Acetaminophen Tab 500 Mg Tab) 500 mg PO Q6HR PRN PRN Reason: Fever and/ or Pain Last Admin: 12/11/22 14:26 Dose: 500 mg Albuterol Sulfate (Albuterol Hfa Inhaler) 2 puff INHALATION RT-QID PRN PRN Reason: Shortness Of Breath Or Wheezing Last Admin: 12/09/22 08:43 Dose: 2 puff Allopurinol (Allopurinol 100 Mg Tab) 100 mg PO BID [facility] Last Admin: 12/11/22 10:22 Dose: 100 mg Apixaban (Apixaban 2.5 Mg Tablet) 2.5 mg PO BID [facility]; Protocol Last Admin: 12/11/22 10:22 Dose: 2.5 mg Aspirin (Aspirin 81 Mg) 81 mg PO [facility] Last Admin: 12/10/22 20:04 Dose: 81 mg Atorvastatin Calcium (Atorvastatin 10 Mg Tab) 10 mg PO [facility] Last Admin: 12/10/22 20:05 Dose: 10 mg Budesonide/Formoterol Fumarate (Symbicort 80-4.5 Mcg Inhaler) 1 puff INHALATION RT-BID [facility] Last Admin: 12/11/22 07:52 Dose: Not Given Calcitriol (Calcitriol 0.25 Mcg Cap) 0.5 mcg PO SUTH@2100 [facility] Last Admin: 12/09/22 20:41 Dose: 0.5 mcg Ergocalciferol (Ergocalciferol 1,250 Mcg (50,000 Iu) Capsule) 1,250 mcg PO MOWEFR@2100 [facility] Last Admin: 12/10/22 20:05 Dose: 1,250 mcg Famotidine (Famotidine 20 Mg Tab) 20 mg PO DAILY [facility] Last Admin: 12/11/22 10:22 Dose: 20 mg Nafcillin Sodium 2 gm/ (Dextrose/Water) 100 mls @ 50 mls/hr IVPB Q4HR [facility]; Protocol Last Admin: 12/11/22 17:04 Dose: 50 mls/hr Melatonin (Melatonin 5 Mg Tablet) 5 mg PO [facility] Last Admin: 12/10/22 20:05 Dose: 5 mg Metoprolol Tartrate (Metoprolol Tartrate 25 Mg Tab) 25 mg PO [facility] Last Admin: 12/10/22 20:05 Dose: 25 mg Metoprolol Tartrate (Metoprolol Tartrate 50 Mg Tab) 50 mg PO DAILY [facility] Last Admin: 12/11/22 10:22 Dose: 50 mg Torsemide (Torsemide 20 Mg Tab) 40 mg PO DAILY [facility] Past medical history to include: Atrial fibrillation, COPD, diabetes, DVT, hypertension, hyperlipidemia, [place], osteoarthritis, CKD, obstructive sleep apnea does not use CPAP, DJD, legally blind bilaterally, GERD, varicose veins, lymphedema back surgery. CHF with diastolic dysfunction Social history: Lives with his . Does use a 4W walker. Smoked 2 packs a day for 45 years stopped in 2016. Occasional marijuana and CBD ordered. Alcohol rarely. Physical examination: VITAL SIGNS: 97.5, 86, 18, 151/84, 96% room air GENERAL: Up in a recliner, Bruising. EYES: Pupils equal. Conjunctiva normal. HEENT: External appearance of nose and ears normal, oral cavity grossly normal. NECK: JVD possibly raised; masses not palpable. HEART: First and second heart sounds are normal; edema present. LUNGS:[ Respiratory rate increased; decreased breath sounds. ABDOMEN: Soft, nontender, liver spleen not palpable, no masses palpable. PSYCH: Answering questions appropriately, but forgetful MUSCULOSKELETAL:No Clubbing/cyanosis;muscles-grossly intact. OA EXTREMITIES: Stockings lower extremity LYMPHATICS: Lymphedema lower extremity INVESTIGATIONS, reviewed in the clinical context: KARTHIK: [December 10]: Mild to moderate aortic insufficiency. 0.7 x 0.8 cm echodensity of the known coronary skull. Consistent with regurgitation. EF 45- 50%. 12/10/2022: White count 13.1 hemoglobin 13.1 potassium 3.6 BUN 72 creatinine 3.3 to 12/09/2022: Sodium 133 potassium 3.4 BUN 70 creatinine 3.45 2-D echocardiogram [12/07/2022] EF 50-55%. [id number]-ii-vseupaii MR.echodensity on the aortic valve suspicious for vegetation 12/08/2022: Sodium 1:30 potassium 3.5 BUN 69 creatinine 3.63 12/07/2022: White count 18.1 hemoglobin 11.6 platelets 26 sodium 129 potassium 3 BUN [address] brain: Cerebral atrophy Previous labs 11/19/2022: Potassium 3.6. 49 creatinine 3.38 2-D echocardiogram: [11/17/2022 ] Normal LV size and function. Mild to moderate AR. Assessment and plan: -Sepsis, with positive blood culture staph aureus, vegetation on aortic valve. POA,: Slow to respond Initial blood culture positive from December 05. 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 IV nafcillin -Acute hypoxic respiratory failure from CHF: Better Oxygen supplement -Acute on chronic congestive heart failure exacerbation. From diastolic dysfunction. Preserved EF.: Better Lasix discontinued. Strict I's and O's. Fluid restriction 1500 mL a day. Cardiology following -Chronic kidney disease stage IV secondary to diabetic and kidney disease and cardiorenal syndrome. Creatinine 3.9 from recently -Persistent atrial fibrillation, rate controlled Lopressor. Eliquis. - COPD in a previous smoker Albuterol 4 puffs 4 times a day when necessary. Symbicort 60/4.5 one puff twice a day -Diabetes mellitus type 2, Diet controlled. Follow Accu-Cheks with sliding scale -Hyperlipidemia Zocor -Essential hypertension Lopressor. -Primary osteoarthritis Tylenol as needed -Obstructive sleep apnea does not use CPAP -Chronic lower extremity lymphedema Continue with stockings -Chronic gout Allopurinol 100 mg twice a day -Full code IV Lasix discontinued. Symbicort. IV nafcillin . Continue IV nafcillin. Discussed with patient and .
[2022-12-11 19:59] LABS: Glucose,Whole Blood 170 mg/dL (70-110)
[2022-12-11] MEDS: ATORVASTATIN 10 MG TAB PO SCH (20:12)
[2022-12-11] MEDS: MELATONIN 5 MG TABLET PO SCH (20:12)
[2022-12-11] MEDS: ASPIRIN 81 MG PO SCH (20:12)
[2022-12-11] MEDS: METOPROLOL TARTRATE 25 MG TAB PO SCH (20:12)
--- NOTE | 2022-12-11 21:57 | P.PN ---
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 Patient is status post KARTHIK completed 12/10/2022 with evidence of aortic valve endocarditis no mention of any abscess On today's evaluation that is 12/11/2022, the patient denies any fever or any chills, the patient is breathing comfortably on 2 L nasal cannula oxygen, the patient denies chest pain shortness of breath, the patient did have occasional dry cough , the patient denies any nausea no vomiting no abdominal pain or diarrhea Objective - Vital Signs Vital signs: Vital Signs Temp 97.5 F L 12/11/22 03:40 Pulse 78 12/11/22 03:40 Resp 16 12/11/22 03:40 BP 132/73 12/11/22 03:40 Pulse Ox 95 12/11/22 03:40 FiO2 Intake & Output 12/10/22 12/11/22 12/11/22 18:59 06:59 18:59 Output Total 400 Balance -400 Weight 123.5 kg Output: Urine 400 Other: Voiding Method Urinal Urinal # Voids 1 # Bowel Movements 1 - Exam GENERAL DESCRIPTION: An elderly male lying in bed in no distress RESPIRATORY SYSTEM: Unlabored breathing , decreased breath sounds at bases HEART: S1 S2 regular rate and rhythm , ABDOMEN: Soft , no tenderness EXTREMITIES: No edema feet - Labs CBC & Chem 7: 12/10/22 07:01 12/10/22 07:01 Labs: Abnormal Lab Results - Last 24 Hours (Table) 12/10/22 12/10/22 12/10/22 Range/Units 11:45 16:21 19:50 POC Glucose (mg/dL) 152 H 185 H 229 H (70-110) mg/dL 12/11/22 Range/Units 06:08 POC Glucose (mg/dL) 139 H (70-110) mg/dL Microbiology - Last 24 Hours (Table) 12/09/22 08:23 Blood Culture Gram Stain - Preliminary Blood Blood Culture - Preliminary Staphylococcus aureus 12/09/22 08:23 Blood Culture - Final Blood 12/08/22 07:16 Blood Culture Gram Stain - Preliminary Blood Blood Culture - Preliminary Presumptive Staph aureus Assessment and Plan (1) MSSA bacteremia Current Visit: Yes Status: Acute Code(s): R78.81 - BACTEREMIA; B95.61 - METHICILLIN SUSCEP STAPH INFCT CAUSING DIS CLASSD [id number] SNOMED Code(s): 65884 3004 (2) Aortic valve endocarditis Current Visit: Yes Status: Acute Code(s): I35.8 - OTHER NONRHEUMATIC AORTIC VALVE DISORDERS SNOMED Code(s): 74296520 Plan: 1patient with MSSA bacteremia in this patient presented to hospital with mental status changes also have complaint of increasing shortness of breath patient currently do not have any open wound or cellulitis chest x-ray was suggestive of pneumonia urine has been negative for any pyuria and abdominal soft examination with concern for possible endovascular source. 2blood cultures from 12/10/2022 so far negative 3- echocardiogram did show evidence of possible aortic valve endocarditis. KARTHIK has confirmed the finding of endocarditis involving the aortic valve, but no mention of any abscess 4patient currently being treated with Naficillin 2 g every 4 hours, once blood culture negative patient did get a PICC line for outpatient IV antibiotic therapy Time with Patient: Less than 30
[2022-12-12] MEDS: NAFCILLIN 2 GM in DEXTROSE 5% IN WATER 100 ML IVPB SCH ×10 (03:31→20:38)
[2022-12-12] MEDS: SYMBICORT 80-4.5 MCG INHALER INHALATION SCH ×2 (07:34→21:19)
[2022-12-12 08:22] LABS: Calcium 8.2 mg/dL (8.4-10.2); Potassium 3.1 mmol/L (3.5-5.1)
[2022-12-12 08:35] LABS: C Reactive Protein 3.7 mg/dL (<1.0)
[2022-12-12] MEDS: TORSEMIDE 20 MG TAB PO SCH (08:56)
[2022-12-12] MEDS: APIXABAN 2.5 MG TABLET PO SCH ×2 (08:56→20:38)
[2022-12-12] MEDS: METOPROLOL TARTRATE 50 MG TAB PO SCH (08:56)
[2022-12-12] MEDS: allopurinoL 100 MG TAB PO SCH ×2 (08:56→20:38)
[2022-12-12] MEDS: FAMOTIDINE 20 MG TAB PO SCH (08:56)
[2022-12-12] MEDS: ACETAMINOPHEN TAB 500 MG TAB PO PRN ×2 (09:09→23:16)
[2022-12-12] MEDS ORDERED: POTASSIUM CHLORIDE ER 20 MEQ TAB.ER PO STA (09:40)
--- NOTE | 2022-12-12 09:40 | P.PN ---
Subjective Patient is seen in follow-up for acute kidney injury on chronic kidney disease. Renal function fairly stable. Now on by mouth diuretics. Nonoliguric. Denies chest pain or shortness of breath. No vomiting or diarrhea. Vital signs are stable. General: No acute distress. HEENT: Head exam is unremarkable. LUNGS: No audible rhonchi or wheezes. HEART: Rate and Rhythm are regular. ABDOMEN: Obese. Nontender. EXTREMITITES: Trace edema. Objective - Vital Signs Vital signs: Vital Signs Temp 97.8 F 12/12/22 09:02 Pulse 81 12/12/22 09:02 Resp 18 12/12/22 09:02 BP 159/66 12/12/22 09:02 Pulse Ox 92 L 12/12/22 09:02 FiO2 Intake & Output 12/11/22 12/12/22 12/12/22 18:59 06:59 18:59 Intake Total 960 Output Total 1450 200 Balance -490 -200 Weight 124 kg Intake: Oral 960 Output: Urine 1450 200 Other: Voiding Method Urinal Urinal Urinal # Voids 1 # Bowel Movements 1 - Labs CBC & Chem 7: 12/10/22 07:01 12/12/22 07:23 Labs: Abnormal Lab Results - Last 24 Hours (Table) 12/11/22 12/11/22 12/11/22 Range/Units 11:26 16:43 19:58 Sodium (137-145) mmol/L Potassium (3.5-5.1) mmol/L Chloride (98-107) mmol/L BUN (9-20) mg/dL Creatinine (0.66-1.25) mg/dL Glucose (74-99) mg/dL POC Glucose (mg/dL) 196 H 177 H 170 H (70-110) mg/dL Calcium (8.4-10.2) mg/dL C-Reactive Protein (<1.0) mg/dL 12/12/22 Range/Units 07:23 Sodium 134 L (137-145) mmol/L Potassium 3.1 L (3.5-5.1) mmol/L Chloride 96 L (98-107) mmol/L BUN 66 H (9-20) mg/dL Creatinine 3.35 H (0.66-1.25) mg/dL Glucose 133 H (74-99) mg/dL POC Glucose (mg/dL) (70-110) mg/dL Calcium 8.2 L (8.4-10.2) mg/dL C-Reactive Protein 3.7 H (<1.0) mg/dL Microbiology - Last 24 Hours (Table) 12/10/22 07:01 Blood Culture - Preliminary Blood No Growth after 48 hours 12/08/22 07:16 Blood Culture Gram Stain - Final Blood Blood Culture - Final Staphylococcus aureus Assessment and Plan Plan: Assessment: 1. Acute kidney injury mostly prerenal secondary to cardiorenal syndrome and sepsis. Renal function stable. Creatinine 3.35 today. Nonoliguric. 2. Chronic kidney disease stage IV. Baseline creatinine 3-3.5 secondary to diabetic kidney disease. 3. Volume overload. Improved with diuresis. 4. Staph aureus bacteremia. Aortic valve vegetation noted on KARTHIK. On antibiotics. 5. Acute on chronic diastolic CHF and mild to moderate mitral regurgitation, mild aortic and tricuspid regurgitation. 6. Diabetes mellitus. 7. Chronic kidney disease mineral bone disease maintained on calcitriol. 8. Hypokalemia from diuresis. Magnesium normal. Plan: Maintain torsemide. Maintain low salt diet and fluid restriction. Avoid nephrotoxins. Follow-up cultures. Replace potassium.
[2022-12-12 11:32] LABS: Glucose,Whole Blood 211 mg/dL (70-110)
--- NOTE | 2022-12-12 12:49 | P.PN ---
Progress Note - Text Progress Note Date: 12/12/22 This is a pleasant 72-year-old patient who follows with Dr. Holder. Chronic stable medical conditions include atrial fibrillation, COPD, diabetes, hyperlipidemia, CHF-preserved EF hypertension, osteoarthritis, CK D, sleep apnea does not use CPAP, gout, lymphedema arthritis chronic lymphedema - follows with a physician for pumping out of the area. Patient came in with comments of altered mental status shortness of breath and the bilateral pedal edema. Patient past medical history significant for chronic diastolic dysfunction was on diuretics at home. Patient is found to be in heart failure exacerbation chest x-ray showed significant pulmonary edema with bilateral pleural effusions. Patient doesn't have any fever did have leukocytosis of 21,600. Patient is alert oriented 3. Patient was admitted and was treated for CHF as well as pneumonia believing that patient has atelectasis or pneumonia and patient was receiving vancomycin. Patient does drink alcohol quite a bit but not a daily basis. Patient has elevated highly elevated BNP of around 17,000. Does have history of chronic kidney disease stage IV with baseline creatinine around 2.5 present creatinine is 3.97 and patient is also hyponatremic. 12/07/2022: I assumed care of the patient today. Appetite is fair. No cough. Had a bowel movement. Patient does state he had a fever at home. Up in a chair today. Blood cultures positive for Staphylococcus aureus. Seen by ID. Vancomycin changed over to nafcillin. Denies any new urinary symptoms. 12/08/2022: Up in a recliner. Complaining of discomfort in both the forearms. Wants to go home. Explained importance of staying here. Discussed with the patient and the at the bedside. Remains on IV Lasix. IV nafcillin. Eating some. In negative fluid balance. 12/09/2022: Up in a recliner. Eating well. Repeat blood cultures remained positive. 2-D echo yesterday shows echodensity on the aortic valve suspicious for vegetation. Discussed with ID. KARTHIK requested further defining the path anatomy. IV nafcillin. 12/10/2022: Underwent KARTHIK today. 0.8 cm vegetation on aortic valve. No destruction reported. Discussed with ID. Continue IV nafcillin 2 cultures until become negative. 12/11/2022: Up in a chair. Comfortable. Getting IV nafcillin. Care was discussed with the patient and the . Need for prolonged antibiotics. Blood cultures positive from December 09. Awake. Comfortable. Answering questions 12/12/2022: Up in a chair. Eating well. IV nafcillin. Blood cultures from December 10 negative to now. Hopefully remains negative tomorrow then patient can have a PICC line and be discharged. Discussed with patient. Active Medications Acetaminophen (Acetaminophen Tab 500 Mg Tab) 500 mg PO Q6HR PRN PRN Reason: Fever and/ or Pain Last Admin: 12/12/22 09:09 Dose: 500 mg Albuterol Sulfate (Albuterol Hfa Inhaler) 2 puff INHALATION RT-QID PRN PRN Reason: Shortness Of Breath Or Wheezing Last Admin: 12/09/22 08:43 Dose: 2 puff Allopurinol (Allopurinol 100 Mg Tab) 100 mg PO BID [facility] Last Admin: 12/12/22 08:56 Dose: 100 mg Apixaban (Apixaban 2.5 Mg Tablet) 2.5 mg PO BID [facility]; Protocol Last Admin: 12/12/22 08:56 Dose: 2.5 mg Aspirin (Aspirin 81 Mg) 81 mg PO HS [facility] Last Admin: 12/11/22 20:12 Dose: 81 mg Atorvastatin Calcium (Atorvastatin 10 Mg Tab) 10 mg PO [facility] Last Admin: 12/11/22 20:12 Dose: 10 mg Budesonide/Formoterol Fumarate (Symbicort 80-4.5 Mcg Inhaler) 1 puff INHALATION RT-BID [facility] Last Admin: 12/12/22 07:34 Dose: Not Given Calcitriol (Calcitriol 0.25 Mcg Cap) 0.5 mcg PO SUTH@2100 [facility] Last Admin: 12/09/22 20:41 Dose: 0.5 mcg Ergocalciferol (Ergocalciferol 1,250 Mcg (50,000 Iu) Capsule) 1,250 mcg PO MOWEFR@2100 [facility] Last Admin: 12/10/22 20:05 Dose: 1,250 mcg Famotidine (Famotidine 20 Mg Tab) 20 mg PO DAILY [facility] Last Admin: 12/12/22 08:56 Dose: 20 mg Nafcillin Sodium 2 gm/ (Dextrose/Water) 100 mls @ 50 mls/hr IVPB Q4HR [facility]; Protocol Last Admin: 12/12/22 12:19 Dose: 50 mls/hr Melatonin (Melatonin 5 Mg Tablet) 5 mg PO [facility] Last Admin: 12/11/22 20:12 Dose: 5 mg Metoprolol Tartrate (Metoprolol Tartrate 25 Mg Tab) 25 mg PO HS [facility] Last Admin: 12/11/22 20:12 Dose: 25 mg Metoprolol Tartrate (Metoprolol Tartrate 50 Mg Tab) 50 mg PO DAILY [facility] Last Admin: 12/12/22 08:56 Dose: 50 mg Torsemide (Torsemide 20 Mg Tab) 40 mg PO DAILY [facility] Last Admin: 12/12/22 08:56 Dose: 40 mg Past medical history to include: Atrial fibrillation, COPD, diabetes, DVT, hypertension, hyperlipidemia, ID, osteoarthritis, CKD, obstructive sleep apnea does not use CPAP, DJD, legally blind bilaterally, GERD, varicose veins, lymphedema back surgery. CHF with diastolic dysfunction Social history: Lives with his . Does use a 4W walker. Smoked 2 packs a day for 45 years stopped in 2016. Occasional marijuana and CBD ordered. Alcohol rarely. Physical examination: VITAL SIGNS: 97.5, 61, 18, 136.71, 96% room air GENERAL: Up in a recliner, Bruising. EYES: Pupils equal. Conjunctiva normal. HEENT: External appearance of nose and ears normal, oral cavity grossly normal. NECK: JVD possibly raised; masses not palpable. HEART: First and second heart sounds are normal; edema present. LUNGS:[ Respiratory rate increased; decreased breath sounds. ABDOMEN: Soft, nontender, liver spleen not palpable, no masses palpable. PSYCH: Answering questions appropriately, but forgetful MUSCULOSKELETAL:No Clubbing/cyanosis;muscles-grossly intact. OA EXTREMITIES: Stockings lower extremity LYMPHATICS: Lymphedema lower extremity INVESTIGATIONS, reviewed in the clinical context: 12/12/2022: Potassium 3.1 BUN 65 creatinine 3.35 CRP 3.7 Blood culture: December 05- Positive for MSSA. December 10-negative to date KARTHIK: [December 10]: Mild to moderate aortic insufficiency. 0.7 x 0.8 cm echodensity of the known coronary skull. Consistent with regurgitation. EF 45- 50%. 12/10/2022: White count 13.1 hemoglobin 13.1 potassium 3.6 BUN 72 creatinine 3.3 to 12/09/2022: Sodium 133 potassium 3.4 BUN 70 creatinine 3.45 2-D echocardiogram [12/07/2022] EF 50-55%. [id number] MR.echodensity on the aortic valve suspicious for vegetation 12/08/2022: Sodium 1:30 potassium 3.5 BUN 69 creatinine 3.63 12/07/2022: White count 18.1 hemoglobin 11.6 platelets 26 sodium 129 potassium 3 BUN [address] brain: Cerebral atrophy Previous labs 11/19/2022: Potassium 3.6. 49 creatinine 3.38 2-D echocardiogram: [11/17/2022 ] Normal LV size and function. Mild to moderate AR. Assessment and plan: -Sepsis, with positive blood culture staph aureus, vegetation on aortic valve. POA,: Slow to respond Initial blood culture positive from December 05. 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 IV nafcillin -Acute hypoxic respiratory failure from CHF: Improved Oxygen discontinued -Acute on chronic congestive heart failure exacerbation. From diastolic dysfunction. Preserved EF.: Better Lasix discontinued. Strict I's and O's. Fluid restriction 1500 mL a day. Cardiology following -Chronic kidney disease stage IV secondary to diabetic and kidney disease and cardiorenal syndrome. Creatinine 3.9 from recently -Persistent atrial fibrillation, rate controlled Lopressor. Eliquis. - COPD in a previous smoker Albuterol 4 puffs 4 times a day when necessary. Symbicort 60/4.5 one puff twice a day -Diabetes mellitus type 2, Diet controlled. Follow Accu-Cheks with sliding scale -Hyperlipidemia Zocor -Essential hypertension Lopressor. -Primary osteoarthritis Tylenol as needed -Obstructive sleep apnea does not use CPAP -Chronic lower extremity lymphedema Continue with stockings -Chronic gout Allopurinol 100 mg twice a day -Full code Symbicort. IV nafcillin . If blood cultures remain negative tomorrow then PICC line can be placed for home IV antibiotics. Follow with ID.
[2022-12-12 17:21] LABS: Glucose,Whole Blood 158 mg/dL (70-110)
[2022-12-12] MEDS: ASPIRIN 81 MG PO SCH (20:38)
[2022-12-12] MEDS: METOPROLOL TARTRATE 25 MG TAB PO SCH (20:38)
[2022-12-12] MEDS: MELATONIN 5 MG TABLET PO SCH (20:38)
[2022-12-12] MEDS: ATORVASTATIN 10 MG TAB PO SCH (20:38)
[2022-12-12 20:45] LABS: Glucose,Whole Blood 188 mg/dL (70-110)
--- NOTE | 2022-12-12 23:04 | P.PN ---
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 Patient is status post KARTHIK completed 12/10/2022 with evidence of aortic valve endocarditis no mention of any abscess On today's evaluation that is 12/12/2022, the patient remains to be afebrile, the patient is breathing comfortably on room air, the patient denies chest pain shortness of breath, the patient did have occasional cough but no sputum production , the patient denies any nausea no vomiting no abdominal pain or diarrhea Objective - Vital Signs Vital signs: Vital Signs Temp 97.8 F 12/12/22 09:02 Pulse 81 12/12/22 09:02 Resp 18 12/12/22 09:02 BP 159/66 12/12/22 09:02 Pulse Ox 92 L 12/12/22 09:02 FiO2 Intake & Output 12/11/22 12/12/22 12/12/22 18:59 06:59 18:59 Intake Total 960 Output Total 1450 200 Balance -490 -200 Weight 124 kg Intake: Oral 960 Output: Urine 1450 200 Other: Voiding Method Urinal Urinal Urinal # Voids 1 # Bowel Movements 1 - Exam GENERAL DESCRIPTION: An elderly male lying in bed in no distress RESPIRATORY SYSTEM: Unlabored breathing , decreased breath sounds at bases HEART: S1 S2 regular rate and rhythm , ABDOMEN: Soft , no tenderness EXTREMITIES: No edema feet - Labs CBC & Chem 7: 12/10/22 07:01 12/12/22 07:23 Labs: Abnormal Lab Results - Last 24 Hours (Table) 12/11/22 12/11/22 12/11/22 Range/Units 11:26 16:43 19:58 Sodium (137-145) mmol/L Potassium (3.5-5.1) mmol/L Chloride (98-107) mmol/L BUN (9-20) mg/dL Creatinine (0.66-1.25) mg/dL Glucose (74-99) mg/dL POC Glucose (mg/dL) 196 H 177 H 170 H (70-110) mg/dL Calcium (8.4-10.2) mg/dL C-Reactive Protein (<1.0) mg/dL 12/12/22 Range/Units 07:23 Sodium 134 L (137-145) mmol/L Potassium 3.1 L (3.5-5.1) mmol/L Chloride 96 L (98-107) mmol/L BUN 66 H (9-20) mg/dL Creatinine 3.35 H (0.66-1.25) mg/dL Glucose 133 H (74-99) mg/dL POC Glucose (mg/dL) (70-110) mg/dL Calcium 8.2 L (8.4-10.2) mg/dL C-Reactive Protein 3.7 H (<1.0) mg/dL Microbiology - Last 24 Hours (Table) 12/10/22 07:01 Blood Culture - Preliminary Blood No Growth after 48 hours 12/08/22 07:16 Blood Culture Gram Stain - Final Blood Blood Culture - Final Staphylococcus aureus Assessment and Plan (1) MSSA bacteremia Current Visit: Yes Status: Acute Code(s): R78.81 - BACTEREMIA; B95.61 - METHICILLIN SUSCEP STAPH INFCT CAUSING DIS CLASSD ELSR SNOMED Code(s): 99863 3004 (2) Aortic valve endocarditis Current Visit: Yes Status: Acute Code(s): I35.8 - OTHER NONRHEUMATIC AORTIC VALVE DISORDERS SNOMED Code(s): 51694779 Plan: 1patient with MSSA bacteremia in this patient presented to hospital with mental status changes also have complaint of increasing shortness of breath patient currently do not have any open wound or cellulitis chest x-ray was suggestive of pneumonia urine has been negative for any pyuria and abdominal soft examination with concern for possible endovascular source. 2blood cultures from 12/10/2022 so far negative 3- echocardiogram did show evidence of possible aortic valve endocarditis. KARTHIK has confirmed the finding of endocarditis involving the aortic valve, but no mention of any abscess 4patient to continue with Naficillin 2 g every 4 hours, if blood culture from 12/10/2022 remains to be negative patient will be able to get a PICC line tomorrow Time with Patient: Less than 30
[2022-12-13] MEDS: NAFCILLIN 2 GM in DEXTROSE 5% IN WATER 100 ML IVPB SCH ×12 (00:34→21:15)
[2022-12-13 07:03] LABS: Glucose,Whole Blood 122 mg/dL (70-110)
[2022-12-13] MEDS: SYMBICORT 80-4.5 MCG INHALER INHALATION SCH ×2 (08:41→20:21)
[2022-12-13] MEDS: allopurinoL 100 MG TAB PO SCH ×2 (08:41→21:16)
[2022-12-13] MEDS: APIXABAN 2.5 MG TABLET PO SCH ×2 (08:41→21:16)
[2022-12-13] MEDS: FAMOTIDINE 20 MG TAB PO SCH (08:41)
[2022-12-13] MEDS: METOPROLOL TARTRATE 50 MG TAB PO SCH (08:41)
[2022-12-13] MEDS: TORSEMIDE 20 MG TAB PO SCH (08:42)
[2022-12-13] MEDS: ACETAMINOPHEN TAB 500 MG TAB PO PRN (08:42)
--- NOTE | 2022-12-13 11:24 | P.PN ---
Subjective Patient is seen in follow-up for acute kidney injury on chronic kidney disease. Renal function fairly stable. Now on po diuretics. Nonoliguric. Denies chest pain or shortness of breath. No vomiting or diarrhea. Vital signs are stable. General: No acute distress. HEENT: Head exam is unremarkable. LUNGS: No audible rhonchi or wheezes. HEART: Rate and Rhythm are regular. ABDOMEN: Obese. Nontender. EXTREMITITES: Trace edema. Objective - Vital Signs Vital signs: Vital Signs Temp 97.7 F 12/13/22 07:26 Pulse 64 12/13/22 07:26 Resp 16 12/13/22 07:26 BP 148/79 12/13/22 07:26 Pulse Ox 95 12/13/22 08:40 FiO2 Intake & Output 12/12/22 12/13/22 12/13/22 18:59 06:59 18:59 Intake Total 550 Output Total 800 Balance 550 -800 Intake: Oral 550 Output: Urine 800 Other: Voiding Method Urinal Urinal Urinal # Bowel Movements 1 - Labs CBC & Chem 7: 12/10/22 07:01 12/12/22 07:23 Labs: Abnormal Lab Results - Last 24 Hours (Table) 12/12/22 12/12/22 12/12/22 Range/Units 06:24 11:31 17:19 ESR 84 H (0-15) mm/hr POC Glucose (mg/dL) 211 H 158 H (70-110) mg/dL 12/12/22 12/13/22 Range/Units 20:31 07:01 ESR (0-15) mm/hr POC Glucose (mg/dL) 188 H 122 H (70-110) mg/dL Microbiology - Last 24 Hours (Table) 12/12/22 08:04 Blood Culture - Preliminary Blood No Growth after 24 hours 12/10/22 07:01 Blood Culture - Preliminary Blood No Growth after 72 hours 12/09/22 08:23 Blood Culture Gram Stain - Final Blood Blood Culture - Final Staphylococcus aureus Assessment and Plan Plan: Assessment: 1. Acute kidney injury mostly prerenal secondary to cardiorenal syndrome and sepsis. Renal function stable. Creatinine 3.35 yesterday. Nonoliguric. 2. Chronic kidney disease stage IV. Baseline creatinine 3-3.5 secondary to diabetic kidney disease. 3. Volume overload. Improved with diuresis. 4. Staph aureus bacteremia. Aortic valve vegetation noted on KARTHIK. On antibiotics. 5. Acute on chronic diastolic CHF and mild to moderate mitral regurgitation, mild aortic and tricuspid regurgitation. 6. Diabetes mellitus. 7. Chronic kidney disease mineral bone disease maintained on calcitriol. 8. Hypokalemia from diuresis. Replaced. Magnesium normal. Plan: Maintain torsemide. Maintain low salt diet and fluid restriction. Avoid nephrotoxins. Add maintenance potassium supplementation. Repeat BMP and magnesium level 2-3 days postdischarge. Follow up outpatient in 1 week. Advised to monitor his weight closely at home and to notify physician if develops edema or gains more than 3-4 pounds in one week duration.
[2022-12-13 11:46] LABS: Glucose,Whole Blood 172 mg/dL (70-110)
[2022-12-13 12:41] VITALS: BMI 39.2
[2022-12-13 17:10] LABS: Glucose,Whole Blood 160 mg/dL (70-110)
--- NOTE | 2022-12-13 17:20 | P.PN ---
Progress Note - Text Progress Note Date: 12/13/22 This is a pleasant 72-year-old patient who follows with Dr. Holder. Chronic stable medical conditions include atrial fibrillation, COPD, diabetes, hyperlipidemia, CHF-preserved EF hypertension, osteoarthritis, CK D, sleep apnea does not use CPAP, gout, lymphedema arthritis chronic lymphedema - follows with a physician for pumping out of the area. Patient came in with comments of altered mental status shortness of breath and the bilateral pedal edema. Patient past medical history significant for chronic diastolic dysfunction was on diuretics at home. Patient is found to be in heart failure exacerbation chest x-ray showed significant pulmonary edema with bilateral pleural effusions. Patient doesn't have any fever did have leukocytosis of 21,600. Patient is alert oriented 3. Patient was admitted and was treated for CHF as well as pneumonia believing that patient has atelectasis or pneumonia and patient was receiving vancomycin. Patient does drink alcohol quite a bit but not a daily basis. Patient has elevated highly elevated BNP of around 17,000. Does have history of chronic kidney disease stage IV with baseline creatinine around 2.5 present creatinine is 3.97 and patient is also hyponatremic. 12/07/2022: I assumed care of the patient today. Appetite is fair. No cough. Had a bowel movement. Patient does state he had a fever at home. Up in a chair today. Blood cultures positive for Staphylococcus aureus. Seen by ID. Vancomycin changed over to nafcillin. Denies any new urinary symptoms. 12/08/2022: Up in a recliner. Complaining of discomfort in both the forearms. Wants to go home. Explained importance of staying here. Discussed with the patient and the at the bedside. Remains on IV Lasix. IV nafcillin. Eating some. In negative fluid balance. 12/09/2022: Up in a recliner. Eating well. Repeat blood cultures remained positive. 2-D echo yesterday shows echodensity on the aortic valve suspicious for vegetation. Discussed with ID. KARTHIK requested further defining the path anatomy. IV nafcillin. 12/10/2022: Underwent KARTHIK today. 0.8 cm vegetation on aortic valve. No destruction reported. Discussed with ID. Continue IV nafcillin 2 cultures until become negative. 12/11/2022: Up in a chair. Comfortable. Getting IV nafcillin. Care was discussed with the patient and the . Need for prolonged antibiotics. Blood cultures positive from December 09. Awake. Comfortable. Answering questions 12/12/2022: Up in a chair. Eating well. IV nafcillin. Blood cultures from December 10 negative to now. Hopefully remains negative tomorrow then patient can have a PICC line and be discharged. Discussed with patient. 12/13/2022: Sitting up in a chair. Oral intake fair. IV nafcillin. Pending PICC line. Will be going home with home antibiotics. Blood culture negative from December 10 Active Medications Acetaminophen (Acetaminophen Tab 500 Mg Tab) 500 mg PO Q6HR PRN PRN Reason: Fever and/ or Pain Last Admin: 12/13/22 08:42 Dose: 500 mg Albuterol Sulfate (Albuterol Hfa Inhaler) 2 puff INHALATION RT-QID PRN PRN Reason: Shortness Of Breath Or Wheezing Last Admin: 12/09/22 08:43 Dose: 2 puff Allopurinol (Allopurinol 100 Mg Tab) 100 mg PO BID [facility] Last Admin: 12/13/22 08:41 Dose: 100 mg Apixaban (Apixaban 2.5 Mg Tablet) 2.5 mg PO BID [facility]; Protocol Last Admin: 12/13/22 08:41 Dose: 2.5 mg Aspirin (Aspirin 81 Mg) 81 mg PO [facility] Last Admin: 12/12/22 20:38 Dose: 81 mg Atorvastatin Calcium (Atorvastatin 10 Mg Tab) 10 mg PO [facility] Last Admin: 12/12/22 20:38 Dose: 10 mg Budesonide/Formoterol Fumarate (Symbicort 80-4.5 Mcg Inhaler) 1 puff INHALATION RT-BID [facility] Last Admin: 12/13/22 08:41 Dose: Not Given Calcitriol (Calcitriol 0.25 Mcg Cap) 0.5 mcg PO SUTH@2100 [facility] Last Admin: 12/12/22 20:38 Dose: 0.5 mcg Ergocalciferol (Ergocalciferol 1,250 Mcg (50,000 Iu) Capsule) 1,250 mcg PO MOWEFR@2100 [facility] Last Admin: 12/10/22 20:05 Dose: 1,250 mcg Famotidine (Famotidine 20 Mg Tab) 20 mg PO DAILY [facility] Last Admin: 12/13/22 08:41 Dose: 20 mg Nafcillin Sodium 2 gm/ (Dextrose/Water) 100 mls @ 50 mls/hr IVPB Q4HR [facility]; Protocol Last Admin: 12/13/22 16:40 Dose: 50 mls/hr Melatonin (Melatonin 5 Mg Tablet) 5 mg PO [facility] Last Admin: 12/12/22 20:38 Dose: 5 mg Metoprolol Tartrate (Metoprolol Tartrate 25 Mg Tab) 25 mg PO HS [facility] Last Admin: 12/12/22 20:38 Dose: 25 mg Metoprolol Tartrate (Metoprolol Tartrate 50 Mg Tab) 50 mg PO DAILY [facility] Last Admin: 12/13/22 08:41 Dose: 50 mg Potassium Chloride (Potassium Chloride Er 20 Meq Tab.Er) 20 meq PO DAILY [facility] Torsemide (Torsemide 20 Mg Tab) 40 mg PO DAILY [facility] Last Admin: 12/13/22 08:42 Dose: 40 mg Past medical history to include: Atrial fibrillation, COPD, diabetes, DVT, hypertension, hyperlipidemia, ID, osteoarthritis, CKD, obstructive sleep apnea does not use CPAP, DJD, legally blind bilaterally, GERD, varicose veins, lymphedema back surgery. CHF with diastolic dysfunction Social history: Lives with his . Does use a 4W walker. Smoked 2 packs a day for 45 years stopped in 2016. Occasional marijuana and CBD ordered. Alcohol rarely. Physical examination: VITAL SIGNS: 98.2, 71, 18, 126 with 73, 96% room air GENERAL: Up in a recliner, Bruising. EYES: Pupils equal. Conjunctiva normal. HEENT: External appearance of nose and ears normal, oral cavity grossly normal. NECK: JVD possibly raised; masses not palpable. HEART: First and second heart sounds are normal; edema present. LUNGS:[ Respiratory rate increased; decreased breath sounds. ABDOMEN: Soft, nontender, liver spleen not palpable, no masses palpable. PSYCH: Answering questions appropriately, but forgetful MUSCULOSKELETAL:No Clubbing/cyanosis;muscles-grossly intact. OA EXTREMITIES: Stockings lower extremity LYMPHATICS: Lymphedema lower extremity INVESTIGATIONS, reviewed in the clinical context: 12/12/2022: Potassium 3.1 BUN 65 creatinine 3.35 CRP 3.7 Blood culture: December 05- Positive for MSSA. December 10-negative to date KARTHIK: [December 10]: Mild to moderate aortic insufficiency. 0.7 x 0.8 cm echodensity of the known coronary skull. Consistent with regurgitation. EF 45- 50%. 12/10/2022: White count 13.1 hemoglobin 13.1 potassium 3.6 BUN 72 creatinine 3.3 to 12/09/2022: Sodium 133 potassium 3.4 BUN 70 creatinine 3.45 2-D echocardiogram [12/07/2022] EF 50-55%. [id number] MR.echodensity on the aortic valve suspicious for vegetation 12/08/2022: Sodium 1:30 potassium 3.5 BUN 69 creatinine 3.63 12/07/2022: White count 18.1 hemoglobin 11.6 platelets 26 sodium 129 potassium 3 BUN [address] brain: Cerebral atrophy Previous labs 11/19/2022: Potassium 3.6. 49 creatinine 3.38 2-D echocardiogram: [11/17/2022 ] Normal LV size and function. Mild to moderate AR. Assessment and plan: -Sepsis, with positive blood culture staph aureus, vegetation on aortic valve. POA,: Slow to respond Initial blood culture positive from December 05. 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 IV nafcillin -Acute hypoxic respiratory failure from CHF: Improved Oxygen discontinued -Acute on chronic congestive heart failure exacerbation. From diastolic dysfunction. Preserved EF.: Better Lasix discontinued. Strict I's and O's. Fluid restriction 1500 mL a day. Cardiology following -Chronic kidney disease stage IV secondary to diabetic and kidney disease and cardiorenal syndrome. Creatinine 3.9 from recently -Persistent atrial fibrillation, rate controlled Lopressor. Eliquis. - COPD in a previous smoker Albuterol 4 puffs 4 times a day when necessary. Symbicort 60/4.5 one puff twice a day -Diabetes mellitus type 2, Diet controlled. Follow Accu-Cheks with sliding scale -Hyperlipidemia Zocor -Essential hypertension Lopressor. -Primary osteoarthritis Tylenol as needed -Obstructive sleep apnea does not use CPAP -Chronic lower extremity lymphedema Continue with stockings -Chronic gout Allopurinol 100 mg twice a day -Full code Pending PICC line IV nafcillin . Discussed with patient. Follow with ID.
[2022-12-13 20:52] LABS: Glucose,Whole Blood 205 mg/dL (70-110)
[2022-12-13] MEDS: ERGOCALCIFEROL 1,250 MCG (50,000 IU) CAPSULE PO SCH (21:16)
[2022-12-13] MEDS: METOPROLOL TARTRATE 25 MG TAB PO SCH (21:16)
[2022-12-13] MEDS: MELATONIN 5 MG TABLET PO SCH (21:16)
[2022-12-13] MEDS: ASPIRIN 81 MG PO SCH (21:16)
[2022-12-13] MEDS: ATORVASTATIN 10 MG TAB PO SCH (21:16)
--- NOTE | 2022-12-13 23:52 | P.PN ---
Subjective Progress Note Date: 12/13/22 Principal diagnosis: MSSA bacteremia, likely aortic valve endocarditis Patient is a 72-year-old male with a past medical history significant for atrial fibrillation COPD diabetes mellitus DVT hypertension hyperlipidemia renal insufficiency was brought into the ER by EMS for evaluation of mental status , patient also noticed to have evidence of MSSA bacteremia with e chocardiogram completed on 12/08/2019 concern for possible vegetation to the aortic valve. Patient is status post KARTHIK completed 12/10/2022 with evidence of aortic valve endocarditis no mention of any abscess On today's evaluation that is 12/13/2022, the patient continues to be afebrile, the patient is breathing comfortably on room air, the patient denies chest pain shortness of breath, the patient denies any worsening cough or sputum production , the patient denies any nausea no vomiting no abdominal pain or diarrhea Objective - Vital Signs Vital signs: Vital Signs Temp 98.2 F 12/13/22 12:45 Pulse 71 12/13/22 12:45 Resp 18 12/13/22 12:45 BP 126/73 12/13/22 12:45 Pulse Ox 96 12/13/22 12:45 FiO2 Intake & Output 12/12/22 12/13/22 12/13/22 18:59 06:59 18:59 Intake Total 550 Output Total 800 Balance 550 -800 Weight 124 kg Intake: Oral 550 Output: Urine 800 Other: Voiding Method Urinal Urinal Urinal # Bowel Movements 1 - Exam GENERAL DESCRIPTION: An elderly male lying in bed in no distress RESPIRATORY SYSTEM: Unlabored breathing , decreased breath sounds at bases HEART: S1 S2 regular rate and rhythm , ABDOMEN: Soft , no tenderness EXTREMITIES: No edema feet - Labs CBC & Chem 7: 12/10/22 07:01 12/12/22 07:23 Labs: Abnormal Lab Results - Last 24 Hours (Table) 12/12/22 12/12/22 12/13/22 Range/Units 17:19 20:31 07:01 POC Glucose (mg/dL) 158 H 188 H 122 H (70-110) mg/dL 12/13/22 Range/Units 11:19 POC Glucose (mg/dL) 172 H (70-110) mg/dL Microbiology - Last 24 Hours (Table) 12/12/22 08:04 Blood Culture - Preliminary Blood No Growth after 24 hours 12/10/22 07:01 Blood Culture - Preliminary Blood No Growth after 72 hours 12/09/22 08:23 Blood Culture Gram Stain - Final Blood Blood Culture - Final Staphylococcus aureus Assessment and Plan (1) MSSA bacteremia Current Visit: Yes Status: Acute Code(s): R78.81 - BACTEREMIA; B95.61 - METHICILLIN SUSCEP STAPH INFCT CAUSING DIS CLASSD ELSWHR SNOMED Code(s): 438819756 (2) Aortic valve endocarditis Current Visit: Yes Status: Acute Code(s): I35.8 - OTHER NONRHEUMATIC AORTIC VALVE DISORDERS SNOMED Code(s): 18001490 Plan: 1patient with MSSA bacteremia in this patient presented to hospital with mental status changes also have complaint of increasing shortness of breath patient currently do not have any open wound or cellulitis chest x-ray was suggestive of pneumonia urine has been negative for any pyuria and abdominal soft examination with concern for possible endovascular source. 2blood cultures from 12/10/2022 so far negative 3- echocardiogram did show evidence of possible aortic valve endocarditis. KARTHIK has confirmed the finding of endocarditis involving the aortic valve, but no mention of any abscess 4patient blood culture from 12/10/2022 has been negative we will order a PICC line and continue with Nafcillin Time with Patient: Less than 30
[2022-12-14] MEDS: NAFCILLIN 2 GM in DEXTROSE 5% IN WATER 100 ML IVPB SCH ×8 (00:04→13:08)
[2022-12-14] MEDS: ACETAMINOPHEN TAB 500 MG TAB PO PRN (04:56)
[2022-12-14 07:11] LABS: Glucose,Whole Blood 124 mg/dL (70-110)
[2022-12-14] MEDS: SYMBICORT 80-4.5 MCG INHALER INHALATION SCH (07:54)
[2022-12-14] MEDS ORDERED: POTASSIUM CHLORIDE ER 20 MEQ TAB.ER PO SCH (09:00)
[2022-12-14] MEDS: APIXABAN 2.5 MG TABLET PO SCH (09:00)
[2022-12-14] MEDS: FAMOTIDINE 20 MG TAB PO SCH (09:01)
[2022-12-14] MEDS: METOPROLOL TARTRATE 50 MG TAB PO SCH (09:01)
[2022-12-14] MEDS: allopurinoL 100 MG TAB PO SCH (09:01)
[2022-12-14] MEDS: TORSEMIDE 20 MG TAB PO SCH (09:01)
[2022-12-14] MEDS ORDERED: LIDOCAINE 1% INJ 10MG/ML (5 ML VIAL-PF) SQ ONE (10:27)
--- NOTE | 2022-12-14 10:49 | IR ---
PICC LINE PLACEMENT: HISTORY: Infection requiring long-term antibiotic therapy PROCEDURE: Ultrasound and fluoroscopic guidance of PICC line placement. COMPLICATIONS: None ANESTHESIA: 1. 1% Lidocaine locally. FINDINGS/TECHNIQUE: The procedure was explained to the patient. The risks, complications, benefits and alternatives were discussed and any questions were answered. Informed consent was obtained. The patient was placed supine on the fluoroscopic table and prepped and draped in the usual sterile fash ion. Utilizing a 21 gauge needle and sonographic and fluoroscopic guidance, access in the right bas ilic vein was achieved and there is placement of a 0.018 guidewire. The vein is patent. A 4-F sheat h was placed over the guidewire. The guidewire and dilator were removed and a 4-F. PICC line was reagan coby through the sheath with the tip at the level of the SVC. The sheath was removed, the catheter wa s flushed and sutured into position. The patient was stable throughout the procedure and remained st able upon discharge from the Department of Radiology. The vein puncture was patent under ultrasound. A lucio scale image was obtained to document patency of the vein punctured. All elements of the maximal barrier technique were utilized. FLUOROSCOPY TIME: 7.1mGym2 IMPRESSION: Successful PICC line placement under ultrasound and fluoroscopic guidance.
--- NOTE | 2022-12-14 11:02 | P.PN ---
Subjective Patient is seen in follow-up for acute kidney injury on chronic kidney disease. Renal function fairly stable. Creatinine 3.35 dated 12/12/2022. Now on po diuretics. Nonoliguric. Denies chest pain or shortness of breath. No vomiting or diarrhea. Vital signs are stable. General: No acute distress. HEENT: Head exam is unremarkable. LUNGS: No audible rhonchi or wheezes. HEART: Rate and Rhythm are regular. ABDOMEN: Obese. Nontender. EXTREMITITES: Trace edema. Objective - Vital Signs Vital signs: Vital Signs Temp 97.4 F L 12/14/22 08:00 Pulse 65 12/14/22 10:50 Resp 18 12/14/22 10:50 BP 162/80 12/14/22 10:50 Pulse Ox 96 12/14/22 10:50 FiO2 21 12/14/22 07:54 Intake & Output 12/13/22 12/14/22 12/14/22 18:59 06:59 18:59 Intake Total 598 200 Output Total 800 250 Balance - Weight 124 kg Intake: Oral 598 200 Output: Urine 800 250 Other: Voiding Method Urinal Urinal Urinal Diaper Diaper Incontinent Incontinent # Voids 4 1 # Bowel Movements 2 - Labs CBC & Chem 7: 12/10/22 07:01 12/12/22 07:23 Labs: Abnormal Lab Results - Last 24 Hours (Table) 12/13/22 12/13/22 12/13/22 Range/Units 11:19 17:08 20:29 POC Glucose (mg/dL) 172 H 160 H 205 H (70-110) mg/dL 12/14/22 Range/Units 07:10 POC Glucose (mg/dL) 124 H (70-110) mg/dL Microbiology - Last 24 Hours (Table) 12/12/22 08:04 Blood Culture - Preliminary Blood No Growth after 48 hours 12/10/22 07:01 Blood Culture - Preliminary Blood No Growth after 96 hours Assessment and Plan Plan: Assessment: 1. Acute kidney injury mostly prerenal secondary to cardiorenal syndrome and sepsis. Renal function stable. Creatinine 3.35 dated 12/12/2022. Nonoliguric. 2. Chronic kidney disease stage IV. Baseline creatinine 3-3.5 secondary to diabetic kidney disease. 3. Volume overload. Improved with diuresis. 4. Staph aureus bacteremia. Aortic valve vegetation noted on KARTHIK. On antibiotics. 5. Acute on chronic diastolic CHF and mild to moderate mitral regurgitation, mild aortic and tricuspid regurgitation. 6. Diabetes mellitus. 7. Chronic kidney disease mineral bone disease maintained on calcitriol. 8. Hypokalemia from diuresis. Replaced. Magnesium normal. Plan: Maintain torsemide. Maintain low salt diet and fluid restriction. Avoid nephrotoxins. Add amlodipine 5 mg once daily. Maintain potassium supplementation. Repeat BMP and magnesium level 2-3 days postdischarge. Follow up outpatient in 1 week. Advised to monitor his weight closely at home and to notify physician if develops edema or gains more than 3-4 pounds in one week duration.
[2022-12-14] MEDS ORDERED: amLODIPine 5 MG TAB PO SCH (11:15)
[2022-12-14 11:26] LABS: Glucose,Whole Blood 161 mg/dL (70-110)
--- NOTE | 2022-12-14 12:03 | P.PN ---
Subjective Progress Note Date: 12/14/22 Principal diagnosis: MSSA bacteremia, likely aortic valve endocarditis Patient is a 72-year-old male with a past medical history significant for atrial fibrillation COPD diabetes mellitus DVT hypertension hyperlipidemia renal insufficiency was brought into the ER by EMS for evaluation of mental status , patient also noticed to have evidence of MSSA bacteremia with e chocardiogram completed on 12/08/2019 concern for possible vegetation to the aortic valve. Patient is status post KARTHIK completed 12/10/2022 with evidence of aortic valve endocarditis no mention of any abscess On today's evaluation that is 12/14/2022, the patient remains to be afebrile, the patient is breathing comfortably on room air, the patient denies chest pain shortness of breath, no cough or sputum production , the patient denies any nausea no vomiting no abdominal pain or diarrhea, patient did get a PICC line Objective - Vital Signs Vital signs: Vital Signs Temp 97.4 F L 12/14/22 08:00 Pulse 91 12/14/22 08:00 Resp 16 12/14/22 08:00 BP 153/76 12/14/22 08:00 Pulse Ox 96 12/14/22 08:00 FiO2 21 12/14/22 07:54 Intake & Output 12/13/22 12/14/22 12/14/22 18:59 06:59 18:59 Intake Total 598 200 Output Total 800 250 Balance - -50 Weight 124 kg Intake: Oral 598 200 Output: Urine 800 250 Other: Voiding Method Urinal Urinal Urinal Diaper Diaper Incontinent Incontinent # Voids 4 # Bowel Movements 2 - Exam GENERAL DESCRIPTION: An elderly male lying in bed in no distress RESPIRATORY SYSTEM: Unlabored breathing , decreased breath sounds at bases HEART: S1 S2 regular rate and rhythm , ABDOMEN: Soft , no tenderness EXTREMITIES: No edema feet - Labs CBC & Chem 7: 12/10/22 07:01 12/12/22 07:23 Labs: Abnormal Lab Results - Last 24 Hours (Table) 12/13/22 12/13/22 12/13/22 Range/Units 11:19 17:08 20:29 POC Glucose (mg/dL) 172 H 160 H 205 H (70-110) mg/dL 12/14/22 Range/Units 07:10 POC Glucose (mg/dL) 124 H (70-110) mg/dL Microbiology - Last 24 Hours (Table) 12/12/22 08:04 Blood Culture - Preliminary Blood No Growth after 48 hours 12/10/22 07:01 Blood Culture - Preliminary Blood No Growth after 96 hours Assessment and Plan (1) MSSA bacteremia Current Visit: Yes Status: Acute Code(s): R78.81 - BACTEREMIA; B95.61 - METHICILLIN SUSCEP STAPH INFCT CAUSING DIS CLASSD ELSWHR SNOMED Code(s): 453462093 (2) Aortic valve endocarditis Current Visit: Yes Status: Acute Code(s): I35.8 - OTHER NONRHEUMATIC AORTIC VALVE DISORDERS SNOMED Code(s): 05804725 Plan: 1patient with MSSA bacteremia in this patient presented to hospital with mental status changes also have complaint of increasing shortness of breath patient currently do not have any open wound or cellulitis chest x-ray was suggestive of pneumonia urine has been negative for any pyuria and abdominal soft examination with concern for possible endovascular source. 2blood cultures from 12/10/2022 so far negative 3- echocardiogram did show evidence of possible aortic valve endocarditis. KARTHIK has confirmed the finding of endocarditis involving the aortic valve, but no mention of any abscess 4patient blood culture from 12/10/2022 has been negative , patient did get a PICC line and antibiotics switched over to cefazolin 2 g every 12 hours depending upon his kidney function does was confirmed with the pharmacist plan is for 6 weeks of antibiotics and close outpatient follow-up Time with Patient: Less than 30
[2022-12-14 12:46] VITALS: BP 150/75; PULSE 83; RESP 16; TEMP 97.6
--- NOTE | 2022-12-14 15:44 | P.GSCN ---
History of Present Illness History of present illness: 72-year-old gentleman I was consulted for left heel pressure ulcer. Patient has history of DVT in the past on examination left femoral is 1+ PTDP not palpable patient has a Brown induration of the lower extremity there is a dry skin present at the left heel there was small opening noted of the left heel negative for discharge we placed X a silver patient is going home today I advised to follow-up in the wound clinic on Tuesday. Patient also has been diagnosed with endocarditis under care of infectious disease patient is an IV antibiotic the PICC line and graft medical history history of A. fib, COPD, diabetes mellitus, hypertension, chronic renal insufficiency, on examination chest has few crackles the lung bases Abdomen soft nontender Femorals are 1+ bilateral has some Brown induration of the both lower extremity left heel pressure ulcer is very small no active drainage noted we placed Aquacel silver and follow-up in the wound clinic Past Medical History Past Medical History: Atrial Fibrillation, COPD, Diabetes Mellitus, Deep Vein Thrombosis (DVT), Eye Disorder, Hyperlipidemia, Hypertension, Myocardial Infarction ([place]), Osteoarthritis (OA), Renal Disease, Sleep Apnea/CPAP/BIPAP Additional Past Medical History / Comment(s): 2016 sepsis, severe back pain, hx bacteremia, DDD, renal cysts being followed by Dr. 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 Smoking Status: Former smoker - Past Family History Mother Family Medical History: CVA/TIA, Deep Vein Thrombosis (DVT) Additional Family Medical History / Comment(s): Mother is 92 yrs old. She had a CVA which left her with R sided paralysis. Father Family Medical History: Cancer Additional Family Medical History / Comment(s): Father is . Medications and Allergies Home Medications Medication Instructions Recorded Confirmed Type Aspirin 81 mg PO HS 11/05/14 12/06/22 History Simvastatin [Zocor] 20 mg PO HS 11/05/14 12/06/22 History allopurinoL [Zyloprim] 100 mg PO BID 05/04/16 12/06/22 History Cinnamon Bark [Cinnamon] 500 mg PO DAILY 10/06/18 12/06/22 History Metoprolol Tartrate 25 mg PO HS 10/06/18 12/06/22 History Metoprolol Tartrate 50 mg PO DAILY 10/06/18 12/06/22 History Ergocalciferol (Vitamin D2) 1,250 mcg PO MOWEFR@209911/17/22 12/06/22 History [Drisdol (50,000 Iu)] Melatonin 5 mg PO HS 11/17/22 12/06/22 History calcitrioL [Calcitriol] 0.5 mcg PO SUTH@209911/17/22 12/06/22 History Acetaminophen Tab [Tylenol] 650 mg PO Q6HR PRN tab 11/22/22 12/06/22 Rx Albuterol Inhaler [Ventolin Hfa 2 puff INHALATION RT-QID PRN #1 11/22/22 12/06/22 Rx Inhaler] each Apixaban [Eliquis] 2.5 mg PO BID #60 tab 11/22/22 12/06/22 Rx Linagliptin [Tradjenta] 5 mg PO HS #30 tab 11/22/22 12/06/22 Rx Potassium Chloride ER [K-Dur 20] 20 meq PO DAILY #30 tab 12/14/22 Rx Torsemide [Demadex] 40 mg PO DAILY #60 tab 12/14/22 Rx ceFAZolin [Kefzol] 2 gm IVP Q12HR #84 each 12/14/22 Rx Allergies Allergy/AdvReac Type Severity Reaction Status Date / Time No Known Allergies Allergy Verified 12/06/22 06:46 Surgical - Exam Vital Signs Temp Pulse Resp BP 98.4 F 118 H 26 H 146/78 12/05/22 23:28 12/05/22 23:28 12/05/22 23:28 12/05/22 23:28 Results - Labs 12/10/22 07:01 12/12/22 07:23 Abnormal Lab Results - Last 24 Hours (Table) 12/13/22 12/13/22 12/14/22 Range/Units 17:08 20:29 07:10 POC Glucose (mg/dL) 160 H 205 H 124 H (70-110) mg/dL 12/14/22 Range/Units 11:24 POC Glucose (mg/dL) 161 H (70-110) mg/dL Microbiology - Last 24 Hours (Table) 12/12/22 08:04 Blood Culture - Preliminary Blood No Growth after 48 hours 12/10/22 07:01 Blood Culture - Preliminary Blood No Growth after 96 hours
--- NOTE | 2022-12-14 20:00 | P.DS ---
Providers Date of admission: 12/06/22 02:32 Expected date of discharge: 12/14/22 Attending physician: Aren Reid Consults: 12/07/22 10:55 Consult Physician Routine Consulting Provider: Art Malik Consult Reason/Comments: positive BC Do you want consulting provider notified?: Yes 12/14/22 12:47 Consult Physician Routine Consulting Provider: Spike Hood Consult Reason/Comments: left heal wound Do you want consulting provider notified?: Already Contacted Primary care physician: [facility] Course: This is a pleasant 72-year-old patient who follows with Dr. Holder. Chronic stable medical conditions include atrial fibrillation, COPD, diabetes, hyperlipidemia, CHF-preserved EF hypertension, osteoarthritis, CK D, sleep apnea does not use CPAP, gout, lymphedema arthritis chronic lymphedema - follows with a physician for pumping out of the area. Patient came in with comments of altered mental status shortness of breath and the bilateral pedal edema. Patient past medical history significant for chronic diastolic dysfunction was on diuretics at home. Patient is found to be in heart failure exacerbation chest x-ray showed significant pulmonary edema with bilateral pleural effusions. Patient doesn't have any fever did have leukocytosis of 21,600. Patient is alert oriented 3. Patient was admitted and was treated for CHF as well as pneumonia believing that patient has atelectasis or pneumonia and patient was receiving vancomycin. Patient does drink alcohol quite a bit but not a daily basis. Patient has elevated highly elevated BNP of around 17,000. Does have history of chronic kidney disease stage IV with baseline creatinine around 2.5 present creatinine is 3.97 and patient is also hyponatremic. 12/07/2022: I assumed care of the patient today. Appetite is fair. No cough. Had a bowel movement. Patient does state he had a fever at home. Up in a chair today. Blood cultures positive for Staphylococcus aureus. Seen by ID. Vancomycin changed over to nafcillin. Denies any new urinary symptoms. 12/08/2022: Up in a recliner. Complaining of discomfort in both the forearms. Wants to go home. Explained importance of staying here. Discussed with the patient and the at the bedside. Remains on IV Lasix. IV nafcillin. Eating some. In negative fluid balance. 12/09/2022: Up in a recliner. Eating well. Repeat blood cultures remained positive. 2-D echo yesterday shows echodensity on the aortic valve suspicious for vegetation. Discussed with ID. KARTHIK requested further defining the path anatomy. IV nafcillin. 12/10/2022: Underwent KARTHIK today. 0.8 cm vegetation on aortic valve. No destruction reported. Discussed with ID. Continue IV nafcillin 2 cultures until become negative. 12/11/2022: Up in a chair. Comfortable. Getting IV nafcillin. Care was discussed with the patient and the . Need for prolonged antibiotics. Blood cultures positive from December 09. Awake. Comfortable. Answering questions 12/12/2022: Up in a chair. Eating well. IV nafcillin. Blood cultures from December 10 negative to now. Hopefully remains negative tomorrow then patient can have a PICC line and be discharged. Discussed with patient. 12/13/2022: Sitting up in a chair. Oral intake fair. IV nafcillin. Pending PICC line. Will be going home with home antibiotics. Blood culture negative from December 10 12/14/2022: PICC line placed. We will DC on IV Ancef 2 g every 12 for 6 weeks. Left heel small pressure ulcer. Seen by Dr. Cleveland. Placed on Aquacel Silver. We'll follow-up in the wound clinic. Discussed with . And the patient. Discussed with ID. Discussion and discharge planning more than 35 minutes Past medical history to include: Atrial fibrillation, COPD, diabetes, DVT, hypertension, hyperlipidemia, MA, osteoarthritis, CKD, obstructive sleep apnea does not use CPAP, DJD, legally blind bilaterally, GERD, varicose veins, lymphedema back surgery. CHF with diastolic dysfunction Social history: Lives with his . Does use a 4W walker. Smoked 2 packs a day for 45 years stopped in 2016. Occasional marijuana and CBD ordered. Alcohol rarely. Physical examination: VITAL SIGNS: 97.6, 83, 16, 150/75, 97% room air GENERAL: Up in a recliner, Bruising. EYES: Pupils equal. Conjunctiva normal. HEENT: External appearance of nose and ears normal, oral cavity grossly normal. NECK: JVD possibly raised; masses not palpable. HEART: First and second heart sounds are normal; edema present. LUNGS:[ Respiratory rate increased; decreased breath sounds. ABDOMEN: Soft, nontender, liver spleen not palpable, no masses palpable. PSYCH: Answering questions appropriately, but forgetful MUSCULOSKELETAL:No Clubbing/cyanosis;muscles-grossly intact. OA EXTREMITIES: Left heel decub ulcer small. LYMPHATICS: Lymphedema lower extremity INVESTIGATIONS, reviewed in the clinical context: 12/12/2022: Potassium 3.1 BUN 65 creatinine 3.35 CRP 3.7 Blood culture: December 05- Positive for MSSA. December 10-negative to date KARTHIK: [December 10]: Mild to moderate aortic insufficiency. 0.7 x 0.8 cm echodensity of the known coronary skull. Consistent with regurgitation. EF 45- 50%. 12/10/2022: White count 13.1 hemoglobin 13.1 potassium 3.6 BUN 72 creatinine 3.3 to 12/09/2022: Sodium 133 potassium 3.4 BUN 70 creatinine 3.45 2-D echocardiogram [12/07/2022] EF 50-55%. [id number] MR.echodensity on the aortic valve suspicious for vegetation 12/08/2022: Sodium 1:30 potassium 3.5 BUN 69 creatinine 3.63 12/07/2022: White count 18.1 hemoglobin 11.6 platelets 26 sodium 129 potassium 3 BUN [address] brain: Cerebral atrophy Previous labs 11/19/2022: Potassium 3.6. 49 creatinine 3.38 2-D echocardiogram: [11/17/2022 ] Normal LV size and function. Mild to moderate AR. Assessment and plan: -Sepsis, with positive blood culture staph aureus, vegetation on aortic valve. POA,: Slow to respond Initial blood culture positive from December 05. Repeat blood cultures negative from December 10 IV nafcillin. 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 IV nafcillin. DC on IV Ancef 2 g IV every 12- 84 doses -Acute hypoxic respiratory failure from CHF: Improved Oxygen discontinued -Acute on chronic congestive heart failure exacerbation. From diastolic dysfunction. Preserved EF.: Better Lasix discontinued. Strict I's and O's. Fluid restriction 1500 mL a day. Cardiology following -Chronic kidney disease stage IV secondary to diabetic and kidney disease and cardiorenal syndrome. Creatinine 3.9 from recently -Persistent atrial fibrillation, rate controlled Lopressor. Eliquis. - COPD in a previous smoker Albuterol 4 puffs 4 times a day when necessary. Symbicort 60/4.5 one puff twice a day -Diabetes mellitus type 2, Diet controlled. Follow Accu-Cheks with sliding scale -Hyperlipidemia Zocor -Left heel small decubitus ulcer. Seen by Dr. Cleveland. Giulia Liu. Follow-up in the wound care center. -Essential hypertension Lopressor. -Primary osteoarthritis Tylenol as needed -Obstructive sleep apnea does not use CPAP -Chronic lower extremity lymphedema Continue with stockings -Chronic gout Allopurinol 100 mg twice a day -Full code Disposition: Home Plan - Discharge Summary Discharge Rx Participant: Yes New Discharge Prescriptions: New Torsemide [Demadex] 40 mg PO DAILY #60 tab ceFAZolin [Kefzol] 2 gm IVP Q12HR #84 each Potassium Chloride ER [K-Dur 20] 20 meq PO DAILY #30 tab Continue Simvastatin [Zocor] 20 mg PO HS Aspirin 81 mg PO HS allopurinoL [Zyloprim] 100 mg PO BID Metoprolol Tartrate 25 mg PO HS Metoprolol Tartrate 50 mg PO DAILY Melatonin 5 mg PO HS Ergocalciferol (Vitamin D2) [Drisdol (50,000 Iu)] 1,250 mcg PO MOWEFR@2100 Linagliptin [Tradjenta] 5 mg PO HS #30 tab calcitrioL [Calcitriol] 0.5 mcg PO SUTH@2100 Apixaban [Eliquis] 2.5 mg PO BID #60 tab Acetaminophen Tab [Tylenol] 650 mg PO Q6HR PRN tab PRN Reason: Mild Pain Or Fever > 100.5 Albuterol Inhaler [Ventolin Hfa Inhaler] 2 puff INHALATION RT-QID PRN #1 each PRN Reason: Shortness Of Breath Or Wheezing Discontinued Sulfamethoxazole/Trimethoprim [Bactrim SS 400-80 mg] 1 tab PO BID Furosemide [Lasix] 40 mg PO BID@0900,1600 #60 tab No Action Cinnamon Bark [Cinnamon] 500 mg PO DAILY Discharge Medication List Aspirin 81 mg PO HS 11/05/14 [History] Simvastatin [Zocor] 20 mg PO HS 11/05/14 [History] allopurinoL [Zyloprim] 100 mg PO BID 05/04/16 [History] Cinnamon Bark [Cinnamon] 500 mg PO DAILY 10/06/18 [History] Metoprolol Tartrate 25 mg PO HS 10/06/18 [History] Metoprolol Tartrate 50 mg PO DAILY 10/06/18 [History] Ergocalciferol (Vitamin D2) [Drisdol (50,000 Iu)] 1,250 mcg PO MOWEFR@209911/17/22 [History] Melatonin 5 mg PO HS 11/17/22 [History] calcitrioL [Calcitriol] 0.5 mcg PO SUTH@209911/17/22 [History] Acetaminophen Tab [Tylenol] 650 mg PO Q6HR PRN tab 11/22/22 [Rx] Albuterol Inhaler [Ventolin Hfa Inhaler] 2 puff INHALATION RT-QID PRN #1 each 11/22/22 [Rx] Apixaban [Eliquis] 2.5 mg PO BID #60 tab 11/22/22 [Rx] Linagliptin [Tradjenta] 5 mg PO HS #30 tab 11/22/22 [Rx] Potassium Chloride ER [K-Dur 20] 20 meq PO DAILY #30 tab 12/14/22 [Rx] Torsemide [Demadex] 40 mg PO DAILY #60 tab 12/14/22 [Rx] ceFAZolin [Kefzol] 2 gm IVP Q12HR #84 each 12/14/22 [Rx] Follow up Appointment(s)/Referral(s): [facility], [NON-STAFF] - Oh Holder DO [Primary Care Provider] - 1-2 days (The office will call you with an appoitment time and date.) [facility], [REFERRING] - 1 Week Quan Chi DO [STAFF PHYSICIAN] - 01/03/23 10:20 am (Check you weight daily. Call the office if you have a weight gain of 3-4 in a week.) Spike Hood MD [STAFF PHYSICIAN] - As Needed (Wound Center will be calling you with date and time of follow-up wound care appt. ) Art Malik MD [STAFF PHYSICIAN] - 12/28/22 2:30 pm Ambulatory/Diagnostic Orders: Basic Metabolic Panel [LAB.AMB] Location: None Selected C Reactive Protein [LAB.AMB] Location: None Selected Complete Blood Count w/diff [LAB.AMB] Location: None Selected Erythrocyte Sedimentation Rate [LAB.AMB] Location: None Selected Patient Instructions/Handouts: Potassium Chloride (By mouth), Cefazolin (By injection), Torsemide (By mouth), Endocarditis (DC), Chronic Kidney Disease (DC), Diabetic Peripheral Neuropathy (DC), Diabetic Foot Ulcers (DC), How to Care for Your PICC (Peripherally Inserted Central Catheter) (ED) Activity/Diet/Wound Care/Special Instructions: Antibiotics per Dr. Tatum--Cefazolin twice daily. Wound care every 48 hours-starting 12/16/22...Cleanse with saline, Aquacell AG, cover with 4x4, and secure with gauze wrap. Follow-up in the wound center on Tuesday12/20/[address] Ortiz. Wound center [facility]- Discharge Disposition: HOME WITH HOME HEALTH SERVICES
== END 2022-12-14 16:26 | disposition home health service (06) | DRG 871 ==
LOC: EC 23:26 → 5NMEDONC 12-06 02:32 → 4SSUR 12-06 02:44 → 3SCARD 12-06 04:14 → 5NMEDONC 12-12 14:08
PROVIDERS: ADMIT Hospitalist; ATTEND Hospitalist
PROC: B246ZZ4 Ultrasonography of Right and Left Heart, Transesophageal (ICD-10-PCS; 2022-12-10)
PROC: 02HV33Z Insertion of Infusion Device into Superior Vena Cava, Percutaneous Approach (ICD-10-PCS; principal; 2022-12-14 07:30)
DX: A41.01 Sepsis due to Methicillin susceptible Staphylococcus aureus (principal); I21.A1 Myocardial infarction type 2; I33.0 Acute and subacute infective endocarditis; I50.33 Acute on chronic diastolic (congestive) heart failure; J96.01 Acute respiratory failure with hypoxia; E87.1 Hypo-osmolality and hyponatremia; I48.19 Other persistent atrial fibrillation; N17.9 Acute kidney failure, unspecified; N18.4 Chronic kidney disease, stage 4 (severe); E78.5 Hyperlipidemia, unspecified; E87.6 Hypokalemia; T50.2X5A Adverse effect of carbonic-anhydrase inhibitors, benzothiadiazides and other diuretics, initial encounter; E11.22 Type 2 diabetes mellitus with diabetic chronic kidney disease; G47.33 Obstructive sleep apnea (adult) (pediatric); I25.10 Atherosclerotic heart disease of native coronary artery without angina pectoris; I25.2 Old myocardial infarction; I89.0 Lymphedema, not elsewhere classified; L89.629 Pressure ulcer of left heel, unspecified stage; M19.91 Primary osteoarthritis, unspecified site; M1A.9XX0 Chronic gout, unspecified, without tophus (tophi); E83.9 Disorder of mineral metabolism, unspecified; Z20.822 Contact with and (suspected) exposure to COVID-19; H54.8 Legal blindness, as defined in USA; Z86.718 Personal history of other venous thrombosis and embolism; Z79.01 Long term (current) use of anticoagulants; Z79.51 Long term (current) use of inhaled steroids; Z79.82 Long term (current) use of aspirin; Z79.84 Long term (current) use of oral hypoglycemic drugs; Z79.899 Other long term (current) drug therapy; Z83.2 Family history of diseases of the blood and blood-forming organs and certain disorders involving the immune mechanism; Z87.891 Personal history of nicotine dependence
CPT/HCPCS: 36415; 36573; 70450; 71045; 80048; 80053; 80202; 81001; 83605; 83735; 83880; 84145; 84484; 85025; 85610; 85652; 85730; 86140; 87040; 87077; 87186; 87636; 93005; 93306; 93312; 93320; 93325; 94640; 94760; 96361; 96365; 96366; 96367; 96375; 99291

== ENCOUNTER 2023-01-14 21:49 | Inpatient (IN) | payer MEDICARE ==
[2023-01-14 22:43] LABS: Basophils % (A) 0 %; Eosinophils # (A) 0.1 k/uL (0-0.7); Eosinophils % (A) 1 %; HCT 33.2 % (39.0-53.0); HGB 10.4 gm/dL (13.0-17.5); Lymphocytes # (A) 0.6 k/uL (1.0-4.8); Lymphocytes % (A) 3 %; MCH 32.5 pg (25.0-35.0); MCHC 31.3 g/dL (31.0-37.0); MCV 103.6 fL (80.0-100.0); Macrocytosis Moderate; Mean Platelet Volume 8.1; Monocytes # (A) 0.7 k/uL (0-1.0); Monocytes % (A) 3 %; Neutrophils # (A) 18.8 k/uL (1.3-7.7); Neutrophils % (A) 92 %; Platelet Count 226 k/uL (150-450); RDW 15.6 % (11.5-15.5); WBC 20.4 k/uL (3.8-10.6)
[2023-01-14 22:56] LABS: INR 1.2 (<1.2); Partial Thromboplastin Time 26.9 sec (22.0-30.0); Prothrombin Time 12.7 sec (9.0-12.0)
[2023-01-14 23:02] LABS: Albumin 3.2 g/dL (3.5-5.0); Calcium 8.8 mg/dL (8.4-10.2); Magnesium 1.6 mg/dL (1.6-2.3); Potassium 4.6 mmol/L (3.5-5.1); Total Bilirubin 0.6 mg/dL (0.2-1.3); Total Protein 6.4 g/dL (6.3-8.2)
--- NOTE | 2023-01-14 23:17 | XR ---
EXAMINATION TYPE: XR chest 2V DATE OF EXAM: 01/14/2023 11:08 PM COMPARISON: Chest radiographs from 12/06/2022 TECHNIQUE: XR chest 2V Frontal and lateral views of the chest. CLINICAL INDICATION:Male, 72 years old with history of difficulty breathing; FINDINGS: Lungs/Pleura: There is no evidence of pleural effusion, focal consolidation, or pneumothorax. Pulmonary vascularity: Pulmonary vascular congestion. Heart/mediastinum: Cardiomediastinal silhouette is enlarged and stable. Musculoskeletal: No acute osseous pathology. IMPRESSION: Cardiomegaly and mild pulmonary vascular congestion. Correlate with BNP for congestive heart failure.
[2023-01-15] MEDS ORDERED: ALBUTEROL NEBULIZED 2.5 MG/3 ML INHALATION PRN (00:29)
[2023-01-15] MEDS ORDERED: NALOXONE 0.4 MG/ML 1 ML VIAL IV PRN (00:32)
[2023-01-15] MEDS ORDERED: NAFCILLIN 2 GM in DEXTROSE 5% IN WATER 100 ML IVPB STA ×2 (00:36)
[2023-01-15] MEDS: METOPROLOL TARTRATE 25 MG TAB PO SCH ×2 (01:02→20:25)
[2023-01-15 02:22] LABS: Appearance,Urine Cloudy (Clear); Bilirubin,Urine Negative (Negative); Blood,Urine Moderate (Negative); Color,Urine Yellow; Glucose,Urine (UA) 3+ (Negative); Hyaline Casts,Urine 1 /lpf (0-2); Ketones,Urine Trace (Negative); Leukocyte Esterase,Urine Negative (Negative); Mucus,Urine Rare /hpf; Nitrite,Urine Negative (Negative); PH, Urine 6.5 (5.0-8.0); Protein,Urine 4+ (Negative); RBC,Urine 29 /hpf (0-5); Squamous Epithelial Cell,Urine 4 /hpf (0-4); Urobilinogen,Urine <2.0 mg/dL (<2.0); WBC,Urine 5 /hpf (0-5)
--- NOTE | 2023-01-15 03:09 | ED ---
General Adult HPI - General Chief complaint: Shortness of Breath Stated complaint: Difficulty Breathing Time Seen by Provider: 01/14/23 21:55 Source: patient, RN notes reviewed, old records reviewed Mode of arrival: EMS Limitations: no limitations - History of Present Illness Initial comments: Patient is a 72-year-old male with past medical history remarkable for significant cardiovascular disease, CHF, A. fib on blood thinners, COPD, diabetes, recently diagnosed with bacteremia and a vegetation on an aortic valve who presents emergency Department complaining of shortness of breath. Also had a shaking episode. Patient is receiving IV antibiotics via PICC line in his right upper extremity. States that 2 hours prior to arrival, patient had some mild shortness of breath and used a home inhaler which should improve in symptoms. States he feels fine now. Did present due to his significant past medical history at this time. Denied any chest pain, current shortness of breath, abdominal pain, nausea, vomiting. Denied any other acute complaints. Denies any fevers, chills, cough, urinary complaints. Denies any diarrhea, nausea, vomiting. Presents for further evaluation at this time after shortness of breath episode. States he is compliant with his medications. Denies any worsening orthopnea. Denies any worsening PND. Denies any worsening lower extremity edema. All chronic findings. - Related Data Home Medications Medication Instructions Recorded Confirmed Aspirin 81 mg PO HS 11/05/14 12/06/22 Simvastatin [Zocor] 20 mg PO HS 11/05/14 12/06/22 allopurinoL [Zyloprim] 100 mg PO BID 05/04/16 12/06/22 Cinnamon Bark [Cinnamon] 500 mg PO DAILY 10/06/18 12/06/22 Metoprolol Tartrate 25 mg PO HS 10/06/18 12/06/22 Metoprolol Tartrate 50 mg PO DAILY 10/06/18 12/06/22 Ergocalciferol (Vitamin D2) 1,250 mcg PO MOWEFR@209911/17/22 12/06/22 [Drisdol (50,000 Iu)] Melatonin 5 mg PO HS 11/17/22 12/06/22 calcitrioL [Calcitriol] 0.5 mcg PO SUTH@209911/17/22 12/06/22 Previous Rx's Medication Instructions Recorded Acetaminophen Tab [Tylenol] 650 mg PO Q6HR PRN tab 11/22/22 Albuterol Inhaler [Ventolin Hfa 2 puff INHALATION RT-QID PRN #1 11/22/22 Inhaler] each Apixaban [Eliquis] 2.5 mg PO BID #60 tab 11/22/22 Linagliptin [Tradjenta] 5 mg PO HS #30 tab 11/22/22 Potassium Chloride ER [K-Dur 20] 20 meq PO DAILY #30 tab 12/14/22 Torsemide [Demadex] 40 mg PO DAILY #60 tab 12/14/22 ceFAZolin [Kefzol] 2 gm IVP Q12HR #84 each 12/14/22 Allergies Allergy/AdvReac Type Severity Reaction Status Date / Time No Known Allergies Allergy Verified 12/06/22 06:46 Review of Systems ROS Statement: Those systems with pertinent positive or pertinent negative responses have been documented in the HPI. Review of Systems: CONST: Denies fever EYES: Denies blurry vision ENT: Denies nasal congestion C/V: Denies Chest pain RESP: Denies shortness of breath GI: Denies abdominal pain : Denies dysuria SKIN: Denies rash. MSK: Denies joint pain. NEURO: Denies headache ROS Other: All systems not noted in ROS Statement are negative. Past Medical History Past Medical History: Atrial Fibrillation, COPD, Diabetes Mellitus, Deep Vein Thrombosis (DVT), Eye Disorder, Hyperlipidemia, Hypertension, Myocardial Infarction ([place]), Osteoarthritis (OA), Renal Disease, Sleep Apnea/CPAP/BIPAP Additional Past Medical History / Comment(s): 2016 sepsis, severe back pain, hx bacteremia, DDD, renal cysts being followed by Dr. 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 Past Psychological History: No Psychological Hx Reported Smoking Status: Former smoker - Past Family History Mother Family Medical History: CVA/TIA, Deep Vein Thrombosis (DVT) Additional Family Medical History / Comment(s): Mother is 92 yrs old. She had a CVA which left her with R sided paralysis. Father Family Medical History: Cancer Additional Family Medical History / Comment(s): Father is . General Exam - General Exam Comments Initial Comments: General: Appears in no acute distress. Obese. Resting comfortably in bed. HEAD: Normal with no signs of head trauma. EYES: PERRLA, EOMI, conjunctiva normal, no discharge. ENT: Hearing grossly intact, normal oropharynx. RESPIRATORY: Clear breath sounds bilaterally. No wheezes, rales, or rhonchi. C/V: Irregular rate and rhythm. S1 and S2 auscultated, symmetrical pitting edema in bilateral lower extremities, peripheral pulses 2+ and intact throughout ABD: Abd is soft, nontender, nondistended EXT: Normal range of motion, no obvious deformity SKIN: Patient has what appears to be a fungal infection in his pannus. Patient has signs of a healed ulcer on the posterior aspect of his left heel. The skin around his right upper extremity PICC line appears within normal limits. No warmth. No signs of infection. NEURO: Alert and oriented 4. Limitations: no limitations Course Vital Signs 01/14/23 22:07 Temperature 99.1 F Pulse Rate 103 H Respiratory 16 Rate Blood Pressure 129/66 O2 Sat by Pulse 95 Oximetry Medical Decision Making - Medical Decision Making Was pt. sent in by a medical professional or institution (, PA, CAMPAIGN CONSULTANT, urgent care, hospital, or correction...) When possible be specific @ -No Did you speak to anyone other than the patient for history (EMS, parent, family, police, friend...)? What history was obtained from this source @ -No Did you review nursing and triage notes (agree or disagree)? Why? @ -I reviewed and agree with nursing and triage notes Were old charts reviewed (outside hosp., previous admission, EMS record, old EKG, old radiological studies, urgent care reports/EKG's, correction records)? Report findings @ -Old charts reviewed from November 2022 Differential Diagnosis (chest pain, altered mental status, abdominal pain women, abdominal pain men, vaginal bleeding, weakness, fever, dyspnea, syncope, headache, dizziness, GI bleed, back pain, seizure, CVA, palpatations, mental health, musculoskeletal)? @ -Differential Dyspnea: Coronary syndrome, arrhythmia, tamponade, asthma, COPD, pulmonary embolism, pneumonia, pneumothorax, pulmonary effusion, anaphylaxis, diabetic ketoacidosis, flailed chest, pulmonary contusion, diaphragmatic rupture, anemia, neuromuscular, this is not meant to be an all-inclusive list. EKG interpreted by me (3pts min.). @ -As above X-rays interpreted by me (1pt min.). @ -Chest x-ray reveals mild bilateral pulmonary Vascular congestion. CT interpreted by me (1pt min.). @ -None done U/S interpreted by me (1pt. min.). @ -None done What testing was considered but not performed or refused? (CT, X-rays, U/S, labs)? Why? @ -None What meds were considered but not given or refused? Why? @ -None Did you discuss the management of the patient with other professionals (professionals i.e. , PA, CAMPAIGN CONSULTANT, lab, RT, psych nurse, high school social studies tutor, seafood packer, teacher, philanthropy officer, field nurse case manager)? Give summary @ -No Was smoking cessation discussed for >3mins.? @ -No Was critical care preformed (if so, how long)? @ -No Were there social determinants of health that impacted care today? How? (Homelessness, low income, unemployed, alcoholism, drug addiction, transportation, low edu. Level, literacy, decrease access to med. care, senior care, rehab)? @ -No Was there de-escalation of care discussed even if they declined (Discuss DNR or withdrawal of care, Hospice)? DNR status @ -No What co-morbidities impacted this encounter? (DM, HTN, Smoking, COPD, CAD, Cancer, CVA, ARF, Chemo, Hep., AIDS, mental health diagnosis, sleep apnea, morbid obesity)? @ -A. fib, bacteremia currently on IV antibiotics, CAD, CHF, COPD Was patient admitted / discharged? Hospital course, mention meds given and route, prescriptions, significant lab abnormalities, going to OR and other pertinent info. @ -Based on the patient's presentation and physical exam, presents with an episode of dyspnea that resolved with an inhaler at home. No other acute complaints at this time. However with a significant history we will obtain cardiopulmonary labs. He was in agreement this plan. Vital Signs are within acceptable limits. EKG showed no signs of ischemia. Chest x-ray shows mild pulmonary vascular congestion. Patient has a acute leukocytosis of 20.4 and CBC. Chronic anemia present. Leukocytosis is new from a few days ago. Patient has CK D which is stable. Troponin is mildly elevated to 0.042. BNP is also elevated to 24,000 which is somewhat chronic for the patient. On reevaluation, I discussed results of the patient. Due to leukocytosis of did recommend that we admit him to the hospital. Cardiology and infectious disease can evaluate him. We also monitor his CHF as well as monitor the troponin that is mildly elevated. Troponin elevation could be secondary to cardiac cause or his CK D. He was in agreement with this plan. We will obtain blood cultures, as well as a PICC line culture. I will provide him with a dose of nafcillin which she was on originally in the hospital at his last stay and continue the Ancef for tomorrow. Infectious disease can elect to switch antibiotics if necessary. Prior cultures were reviewed and were tinsley susceptible. Patient and are in agreement this plan. I spoke with the admitting team,PRINCESS carr of [facility] who is covering for [facility] who accepted the patient. Infectious disease and cardiology consulted. Undiagnosed new problem with uncertain prognosis? @ -No Drug Therapy requiring intensive monitoring for toxicity (Heparin, Nitro, Insulin, Cardizem)? @ -No Were any procedures done? @ -No Diagnosis/symptom? @ -Leukocytosis, in the setting of current IV antibiotic use for bacteremia and aortic valve vegetation Acute, or Chronic, or Acute on Chronic? @ -Acute Uncomplicated (without systemic symptoms) or Complicated (systemic symptoms)? @ -Uncomplicated Side effects of treatment? @ -No Exacerbation, Progression, or Severe Exacerbation? @ -No Poses a threat to life or bodily function? How? (Chest pain, [place], [place], pneumonia, PE, COPD, DKA, ARF, appy, cholecystitis, CVA, Diverticulitis, Homicidal, Suicidal, threat to staff... and all critical care pts) @ -Potentially Diagnosis/symptom? @ -History of A. fib, CK D, CHF with dyspnea episode at home Acute, or Chronic, or Acute on Chronic? @ -Acute on chronic Uncomplicated (without systemic symptoms) or Complicated (systemic symptoms)? @ -Complicated Side effects of treatment? @ -none Exacerbation, Progression, or Severe Exacerbation] @ -no Poses a threat to life or bodily function? @ -no. - Lab Data Result diagrams: 01/14/23 22:25 01/14/23 22:25 Lab Results 01/14/23 01/14/23 01/14/23 Range/Units 22:25 22:25 22:25 WBC 20.4 H (3.8-10.6) k/uL RBC 3.20 L (4.30-5.90) m/uL Hgb 10.4 L (13.0-17.5) gm/dL Hct 33.2 L (39.0-53.0) % MCV 103.6 H (80.0-100.0) fL MCH 32.5 (25.0-35.0) pg MCHC 31.3 (31.0-37.0) g/dL RDW 15.6 H (11.5-15.5) % Plt Count 226 (150-450) k/uL MPV 8.1 Neutrophils % 92 % Lymphocytes % 3 % Monocytes % 3 % Eosinophils % 1 % Basophils % 0 % Neutrophils # 18.8 H (1.3-7.7) k/uL Lymphocytes # 0.6 L (1.0-4.8) k/uL Monocytes # 0.7 (0-1.0) k/uL Eosinophils # 0.1 (0-0.7) k/uL Basophils # 0.0 (0-0.2) k/uL Macrocytosis Moderate PT 12.7 H (9.0-12.0) sec INR 1.2 H (<1.2) APTT 26.9 (22.0-30.0) sec Sodium 133 L (137-145) mmol/L Potassium 4.6 (3.5-5.1) mmol/L Chloride 101 (98-107) mmol/L Carbon Dioxide 19 L (22-30) mmol/L Anion Gap 13 mmol/L BUN 73 H (9-20) mg/dL Creatinine 3.27 H (0.66-1.25) mg/dL Est GFR (CKD-EPI)AfAm 20 (>60 ml/min/1.73 sqM) Est GFR (CKD-EPI)NonAf 18 (>60 ml/min/1.73 sqM) Glucose 188 H (74-99) mg/dL Calcium 8.8 (8.4-10.2) mg/dL Magnesium 1.6 (1.6-2.3) mg/dL Total Bilirubin 0.6 (0.2-1.3) mg/dL AST 21 (17-59) U/L ALT 7 (4-49) U/L Alkaline Phosphatase 70 (38-126) U/L Troponin I (0.000-0.034) ng/mL NT-Pro-B Natriuret Pep pg/mL Total Protein 6.4 (6.3-8.2) g/dL Albumin 3.2 L (3.5-5.0) g/dL 01/14/23 01/14/23 Range/Units 22:25 22:25 WBC (3.8-10.6) k/uL RBC (4.30-5.90) m/uL Hgb (13.0-17.5) gm/dL Hct (39.0-53.0) % MCV (80.0-100.0) fL MCH (25.0-35.0) pg MCHC (31.0-37.0) g/dL RDW (11.5-15.5) % Plt Count (150-450) k/uL MPV Neutrophils % % Lymphocytes % % Monocytes % % Eosinophils % % Basophils % % Neutrophils # (1.3-7.7) k/uL Lymphocytes # (1.0-4.8) k/uL Monocytes # (0-1.0) k/uL Eosinophils # (0-0.7) k/uL Basophils # (0-0.2) k/uL Macrocytosis PT (9.0-12.0) sec INR (<1.2) APTT (22.0-30.0) sec Sodium (137-145) mmol/L Potassium (3.5-5.1) mmol/L Chloride (98-107) mmol/L Carbon Dioxide (22-30) mmol/L Anion Gap mmol/L BUN (9-20) mg/dL Creatinine (0.66-1.25) mg/dL Est GFR (CKD-EPI)AfAm (>60 ml/min/1.73 sqM) Est GFR (CKD-EPI)NonAf (>60 ml/min/1.73 sqM) Glucose (74-99) mg/dL Calcium (8.4-10.2) mg/dL Magnesium (1.6-2.3) mg/dL Total Bilirubin (0.2-1.3) mg/dL AST (17-59) U/L ALT (4-49) U/L Alkaline Phosphatase (38-126) U/L Troponin I 0.042 H* (0.000-0.034) ng/mL NT-Pro-B Natriuret Pep 49422 pg/mL Total Protein (6.3-8.2) g/dL Albumin (3.5-5.0) g/dL - EKG Data -: EKG Interpreted by Me EKG Comments: 12-lead Electrocardiogram Interpretation Note EKG was reviewed and interpreted by myself. 12-lead ECG performed at 2208 is interpreted by me as revealing A. fib with RVR at a rate of 120 beats per minute. Morton is normal. QRS is 112, QTc is 398. There were no ST or T wave abnormalities to suggest myocardial ischemia or injury. R wave progression across the precordium was satisfactory. By my interpretation this EKG is non- diagnostic for acute ischemia. Disposition Clinical Impression: Leukocytosis, Bacteremia, Aortic valve vegetation, Atrial fibrillation Disposition: ADMITTED IP TO THIS HOSP Condition: Stable Time of Disposition: 00:32
[2023-01-15 09:05] LABS: Glucose,Whole Blood 147 mg/dL (70-110)
[2023-01-15] MEDS: METOPROLOL TARTRATE 50 MG TAB PO SCH (09:44)
[2023-01-15] MEDS: APIXABAN 2.5 MG TABLET PO SCH ×2 (09:44→20:25)
[2023-01-15] MEDS: allopurinoL 100 MG TAB PO SCH ×2 (09:44→20:25)
[2023-01-15] MEDS: POTASSIUM CHLORIDE ER 20 MEQ TAB.ER PO SCH (09:44)
[2023-01-15] MEDS: TORSEMIDE 20 MG TAB PO SCH (09:44)
[2023-01-15] MEDS ORDERED: FUROSEMIDE 10 MG/ML 4 ML VIAL IV STA (10:06)
--- NOTE | 2023-01-15 10:06 | P.CRDCN ---
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 He has been doing well since he was discharged home recently. He has been on IV antibiotics. He has been under increased amount of stress because of the illness of his 2 sisters. Yesterday while sitting he started to have some shaking it persisted but was not associated with dyspnea, chest discomfort, dizziness or palpitations. According to him he felt afebrile at home. He denies any nausea or vomiting no cough. In the emergency room he was noted to have leukocytosis. His troponin was mildly elevated but that has been noted in the past. He underwent a KARTHIK in November by Dr. Hernández that showed an ejection fraction of 45-50% with mild to moderate aortic regurgitation and a vegetation on the noncoronary cusp of the aortic valve. He is a nonsmoker. He has a history of hyperlipidemia, diabetes and hypertension Medications: Metoprolol tartrate 50 the morning, 25 in the afternoon, Demadex 40 mg daily,Eliquis 2.5 mg twice a day, simvastatin 20 mg daily. He is on IV Kefzol. He is on Tradjenta and Zyloprim. Review of Systems: Respiratory: He had no recent change in his breathing or recent cough or wheezing GI: No nausea or vomiting . No history of peptic ulcer disease. No recent GI bleed. : No hematuria or dysuria. Nervous System: No stroke or seizure. Physical Examination: 72-year-old male alert and oriented no apparent distress, obese ,Blood pressure 125/60, Heart rate 89, afebrile Head: Normocephalic. Eyes: Sclerae nonicteric. Neck: Good carotid upstroke, no bruit, no jugular venous distention. Lungs: Clear to auscultation. Heart: Irregular rate and rhythm, S1-S2, no S3, no rub. Diastolic murmur and systolic ejection murmur at the aortic area. Abdomen: Soft nontender, positive bowel sounds no organomegaly. Extremities: 1+ edema predominantly on the left, intact distal pulses. IV access noted on the right arm Labs: WBC 20.4, hemoglobin 10.4, BUN 73, creatinine 3.27. Troponin 0.042 and 0.397. NT proBNP 24,900. Chest x-ray with mild congestion EKG: Atrial fibrillation, rate of [address]-T wave changes Impression: 1. Endocarditis of the aortic valve, hemodynamically stable on IV antibiotics. He is afebrile at this time. The leukocytosis is worse than January 10. 2. Chronic persistent atrial fibrillation, anticoagulated 3. Troponin elevation probably a combination of the infectious process and chronic kidney disease, no evidence to suggest acute ischemic event 4. Mild impairment of the systolic function with elevated NT proBNP but no clear evidence of lung congestion. His peripheral edema is chronic. 5. History of hyperlipidemia 6. Diabetes 7. Chronic kidney disease stage IV Plan: 1. Resume anticoagulation and beta seth 2. Resume statin 3. IV Lasix 1 4. Follow renal functions 5. Infectious disease consult 6. Thank you for this consult we will follow with you area Past Medical History Past Medical History: Atrial Fibrillation, COPD, Diabetes Mellitus, Deep Vein Thrombosis (DVT), Eye Disorder, Hyperlipidemia, Hypertension, Myocardial Infarction ([place]), Osteoarthritis ([place]), Renal Disease, Sleep Apnea/CPAP/BIPAP Additional Past Medical History / Comment(s): 2016 sepsis, severe back pain, hx bacteremia, DDD, renal cysts being followed by Dr. 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 Past Psychological History: No Psychological Hx Reported Smoking Status: Former smoker - Past Family History Mother Family Medical History: CVA/TIA, Deep Vein Thrombosis (DVT) Additional Family Medical History / Comment(s): Mother is 92 yrs old. She had a CVA which left her with R sided paralysis. Father Family Medical History: Cancer Additional Family Medical History / Comment(s): Father is . Medications and Allergies Home Medications Medication Instructions Recorded Confirmed Type Aspirin 81 mg PO HS 11/05/14 12/06/22 History Simvastatin [Zocor] 20 mg PO HS 11/05/14 12/06/22 History allopurinoL [Zyloprim] 100 mg PO BID 05/04/16 12/06/22 History Cinnamon Bark [Cinnamon] 500 mg PO DAILY 10/06/18 12/06/22 History Metoprolol Tartrate 25 mg PO HS 10/06/18 12/06/22 History Metoprolol Tartrate 50 mg PO DAILY 10/06/18 12/06/22 History Ergocalciferol (Vitamin D2) 1,250 mcg PO MOWEFR@209911/17/22 12/06/22 History [Drisdol (50,000 Iu)] Melatonin 5 mg PO HS 11/17/22 12/06/22 History calcitrioL [Calcitriol] 0.5 mcg PO SUTH@2100 11/17/22 12/06/22 History Acetaminophen Tab [Tylenol] 650 mg PO Q6HR PRN tab 11/22/22 12/06/22 Rx Albuterol Inhaler [Ventolin Hfa 2 puff INHALATION RT-QID PRN #1 11/22/22 12/06/22 Rx Inhaler] each Apixaban [Eliquis] 2.5 mg PO BID #60 tab 11/22/22 12/06/22 Rx Linagliptin [Tradjenta] 5 mg PO HS #30 tab 11/22/22 12/06/22 Rx Potassium Chloride ER [K-Dur 20] 20 meq PO DAILY #30 tab 12/14/22 Rx Torsemide [Demadex] 40 mg PO DAILY #60 tab 12/14/22 Rx ceFAZolin [Kefzol] 2 gm IVP Q12HR #84 each 12/14/22 Rx Allergies Allergy/AdvReac Type Severity Reaction Status Date / Time No Known Allergies Allergy Verified 12/06/22 06:46 Physical Exam Vitals: Vital Signs Temp Pulse Resp BP Pulse Ox 01/15/23 07:24 89 18 125/61 96 01/15/23 07:22 95 01/14/23 22:07 99.1 F 103 H 16 129/66 95 Intake and Output 01/14/23 01/15/23 01/15/23 22:59 06:59 14:59 Other: Weight 119.748 kg Results 01/14/23 22:25 01/14/23 22:25 Cardiac Enzymes 01/14/23 01/14/23 01/15/23 Range/Units 22:25 22:25 07:40 AST 21 (17-59) U/L Troponin I 0.042 H* 0.397 H* (0.000-0.034) ng/mL Coagulation 01/14/23 Range/Units 22:25 PT 12.7 H (9.0-12.0) sec APTT 26.9 (22.0-30.0) sec CBC 01/14/23 Range/Units 22:25 WBC 20.4 H (3.8-10.6) k/uL RBC 3.20 L (4.30-5.90) m/uL Hgb 10.4 L (13.0-17.5) gm/dL Hct 33.2 L (39.0-53.0) % Plt Count 226 (150-450) k/uL Comprehensive Metabolic Panel 01/14/23 Range/Units 22:25 Sodium 133 L (137-145) mmol/L Potassium 4.6 (3.5-5.1) mmol/L Chloride 101 (98-107) mmol/L Carbon Dioxide 19 L (22-30) mmol/L BUN 73 H (9-20) mg/dL Creatinine 3.27 H (0.66-1.25) mg/dL Glucose 188 H (74-99) mg/dL Calcium 8.8 (8.4-10.2) mg/dL AST 21 (17-59) U/L ALT 7 (4-49) U/L Alkaline Phosphatase 70 (38-126) U/L Total Protein 6.4 (6.3-8.2) g/dL Albumin 3.2 L (3.5-5.0) g/dL Current Medications Generic Name Dose Route Start Last Admin Trade Name Freq PRN Reason Stop Dose Admin Albuterol Sulfate 2.5 mg 01/15/23 00:29 Albuterol Nebulized 2.5 Mg/3 Ml INHALATION RT-QID PRN Shortness Of Breath Or Wheezing Allopurinol 100 mg 01/15/23 09:00 01/15/23 09:44 Allopurinol 100 Mg Tab PO 100 mg BID OWEN Administration Apixaban 2.5 mg 01/15/23 09:00 01/15/23 09:44 Apixaban 2.5 Mg Tablet PO 2.5 mg BID OWEN Administration Protocol Aspirin 81 mg 01/15/23 21:00 Aspirin 81 Mg PO HS OWEN Atorvastatin Calcium 10 mg 01/15/23 21:00 Atorvastatin 10 Mg Tab PO HS OWEN Cefazolin Sodium 2 gm/ Sodium 50 mls @ 100 mls/hr 01/15/23 09:00 01/15/23 09:43 Chloride IVPB 100 mls/hr Q12HR OWEN Administration Protocol Metoprolol Tartrate 25 mg 01/15/23 00:30 01/15/23 01:02 Metoprolol Tartrate 25 Mg Tab PO 25 mg HS OWEN Administration Metoprolol Tartrate 50 mg 01/15/23 09:00 01/15/23 09:44 Metoprolol Tartrate 50 Mg Tab PO 50 mg DAILY OWEN Administration Naloxone HCl 0.2 mg 01/15/23 00:32 Naloxone 0.4 Mg/Ml 1 Ml Vial IV Q2M PRN Opioid Reversal Potassium Chloride 20 meq 01/15/23 09:00 01/15/23 09:44 Potassium Chloride Er 20 Meq Tab.Er PO 20 meq DAILY OWEN Administration Torsemide 40 mg 01/15/23 09:00 01/15/23 09:44 Torsemide 20 Mg Tab PO 40 mg DAILY OWEN Administration Intake and Output 01/14/23 01/15/23 01/15/23 22:59 06:59 14:59 Other: Weight 119.748 kg 01/14/23 22:25 01/14/23 22:25
[2023-01-15 11:26] LABS: Glucose,Whole Blood 141 mg/dL (70-110)
[2023-01-15] MEDS: INSULIN ASPART (NovoLOG) 100 UNIT/ML VIAL SQ SCH ×3 (12:37→20:24)
[2023-01-15 16:17] LABS: Glucose,Whole Blood 110 mg/dL (70-110)
--- NOTE | 2023-01-15 16:54 | P.CONS ---
History of Present Illness - Reason for Consult Consult date: 01/15/23 - History of Present Illness Patient is a 72-year male with multiple comorbidities including chronic renal insufficiency diabetes mellitus atrial fibrillation patient was diagnosed with aortic wall endocarditis and the patient did have MSSA bacteremia there was no evidence of any aortic root abscess and the patient did get his bacteremia patient did get a PICC line and was advised a 6-week course of IV cefazolin 2 g every 12 hours with the dose adjusted to his kidney function and the patient was receiving his antibiotics at home patient was evaluated in the office last Tuesday and the patient was doing much better patient has been brought into the ER last night for an episode of acute shortness of breath that apparently started the day of presentation to the hospital per the family member shortness of breath more likely was related to anxiety has the patient's symptom improved rather quickly patient denies having any fever or any chills denies having headache no chest pain or cough or sputum production no abdominal pain no diarrhea and denies having any problem with the PICC line patient presented to the hospital did have a low-grade fever of 99.1 F that has subsequently normalized he did have vital of 20,000 with a left shift patient did have elevated troponin been occurring has been elevated liver enzymes are normal urine has been negative influenza RSV and COVID testing was negative patient did have a chest x-ray cardiomegaly and mild pulmonary vascular congestion patient has been continue on cefazolin infectious disease was consulted for further management of antibiotic therapy, patient time evaluation is breathing comfortably and is currently on a room air patient denies any headache or URI symptoms no chest pain no cough or sputum production no abdominal pain no diarrhea and no problem with the urine Past Medical History Past Medical History: Atrial Fibrillation, COPD, Diabetes Mellitus, Deep Vein Thrombosis (DVT), Eye Disorder, Hyperlipidemia, Hypertension, Myocardial Infarction ([place]), Osteoarthritis (OA), Renal Disease, Sleep Apnea/CPAP/BIPAP Additional Past Medical History / Comment(s): 2016 sepsis, severe back pain, hx bacteremia, DDD, renal cysts being followed by Dr. 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 Past Psychological History: No Psychological Hx Reported Smoking Status: Former smoker - Past Family History Mother Family Medical History: CVA/TIA, Deep Vein Thrombosis (DVT) Additional Family Medical History / Comment(s): Mother is 92 yrs old. She had a CVA which left her with R sided paralysis. Father Family Medical History: Cancer Additional Family Medical History / Comment(s): Father is . Medications and Allergies Home Medications Medication Instructions Recorded Confirmed Type Aspirin 81 mg PO HS 11/05/14 01/15/23 History Simvastatin [Zocor] 20 mg PO HS 11/05/14 01/15/23 History allopurinoL [Zyloprim] 100 mg PO BID 05/04/16 01/15/23 History Cinnamon Bark [Cinnamon] 500 mg PO DAILY 10/06/18 01/15/23 History Metoprolol Tartrate 25 mg PO HS 10/06/18 01/15/23 History Metoprolol Tartrate 50 mg PO DAILY 10/06/18 01/15/23 History Ergocalciferol (Vitamin D2) 1,250 mcg PO MOWEFR@209911/17/22 01/15/23 History [Drisdol (50,000 Iu)] Melatonin 5 mg PO HS 11/17/22 01/15/23 History calcitrioL [Calcitriol] 0.5 mcg PO SUTH@209911/17/22 01/15/23 History Acetaminophen Tab [Tylenol] 650 mg PO Q6HR PRN tab 11/22/22 01/15/23 Rx Albuterol Inhaler [Ventolin Hfa 2 puff INHALATION RT-QID PRN #1 11/22/22 01/15/23 Rx Inhaler] each Apixaban [Eliquis] 2.5 mg PO BID #60 tab 11/22/22 01/15/23 Rx Linagliptin [Tradjenta] 5 mg PO HS #30 tab 11/22/22 01/15/23 Rx Potassium Chloride ER [K-Dur 20] 20 meq PO DAILY #30 tab 12/14/22 01/15/23 Rx Torsemide [Demadex] 40 mg PO DAILY #60 tab 12/14/22 01/15/23 Rx ceFAZolin [Kefzol] 2 gm IVP Q12HR #84 each 12/14/22 01/15/23 Rx Brimonidine Tartrate [Alphagan P 1 drop BOTH EYES BID 01/15/23 01/15/23 History 0.2% Ophth Soln] traMADol HCL 50 - 100 mg PO Q6H PRN 01/15/23 01/15/23 History Allergies Allergy/AdvReac Type Severity Reaction Status Date / Time No Known Allergies Allergy Verified 01/15/23 11:38 Physical Exam Vitals: Vital Signs Temp Pulse Resp BP Pulse Ox 01/15/23 07:24 89 18 125/61 96 01/15/23 07:22 95 01/14/23 22:07 99.1 F 103 H 16 129/66 95 Intake and Output 01/14/23 01/15/23 01/15/23 22:59 06:59 14:59 Other: Weight 119.748 kg Results CBC & Chem 7: 01/14/23 22:25 01/14/23 22:25 Labs: Abnormal Lab Results - Last 24 Hours (Table) 01/14/23 01/14/23 01/14/23 Range/Units 22:25 22:25 22:25 WBC 20.4 H (3.8-10.6) k/uL RBC 3.20 L (4.30-5.90) m/uL Hgb 10.4 L (13.0-17.5) gm/dL Hct 33.2 L (39.0-53.0) % MCV 103.6 H (80.0-100.0) fL RDW 15.6 H (11.5-15.5) % Neutrophils # 18.8 H (1.3-7.7) k/uL Lymphocytes # 0.6 L (1.0-4.8) k/uL PT 12.7 H (9.0-12.0) sec INR 1.2 H (<1.2) Sodium 133 L (137-145) mmol/L Carbon Dioxide 19 L (22-30) mmol/L BUN 73 H (9-20) mg/dL Creatinine 3.27 H (0.66-1.25) mg/dL Glucose 188 H (74-99) mg/dL Troponin I (0.000-0.034) ng/mL Albumin 3.2 L (3.5-5.0) g/dL Urine Protein (Negative) Urine Glucose (UA) (Negative) Urine Ketones (Negative) Urine Blood (Negative) Urine RBC (0-5) /hpf Urine Mucus (None) /hpf 01/14/23 01/15/23 Range/Units 22:25 00:41 WBC (3.8-10.6) k/uL RBC (4.30-5.90) m/uL Hgb (13.0-17.5) gm/dL Hct (39.0-53.0) % MCV (80.0-100.0) fL RDW (11.5-15.5) % Neutrophils # (1.3-7.7) k/uL Lymphocytes # (1.0-4.8) k/uL PT (9.0-12.0) sec INR (<1.2) Sodium (137-145) mmol/L Carbon Dioxide (22-30) mmol/L BUN (9-20) mg/dL Creatinine (0.66-1.25) mg/dL Glucose (74-99) mg/dL Troponin I 0.042 H* (0.000-0.034) ng/mL Albumin (3.5-5.0) g/dL Urine Protein 4+ H (Negative) Urine Glucose (UA) 3+ H (Negative) Urine Ketones Trace H (Negative) Urine Blood Moderate H (Negative) Urine RBC 29 H (0-5) /hpf Urine Mucus Rare H (None) /hpf Assessment and Plan Plan: 1patient presented to hospital with increasing shortness of breath more for sudden onset in this patient with a recent diagnosis of aortic valve endocarditis with MSSA bacteremia in this patient who has cleared his bacteremia and the patient was doing well with a sudden onset of shortness of breath and did have elevated white count with concern for possible complication associated with aortic valve endocarditis as no other obvious focus for this elevated white count 2-blood culture has been repeated I will check inflammatory markers 3-check an echocardiogram 4-continue cefazolin 2 g every 12 hours dose adjusted to the kidney function We will follow on clinical condition and cultures to further adjust medication if needed Thank you for this consultation we will follow the patient along with you Time with Patient: Greater than 30
[2023-01-15 17:13] LABS: HCT 32.3 % (39.0-53.0); Hypochromasia Slight; MCH 33.1 pg (25.0-35.0); MCHC 31.1 g/dL (31.0-37.0); MCV 106.6 fL (80.0-100.0); Macrocytosis Marked; Mean Platelet Volume 8.3; Platelet Count 187 k/uL (150-450); RBC 3.03 m/uL (4.30-5.90); RDW 15.8 % (11.5-15.5); WBC 18.6 k/uL (3.8-10.6)
[2023-01-15 17:18] LABS: Calcium 8.8 mg/dL (8.4-10.2)
[2023-01-15] MEDS: ALPRAZolam 0.25 MG TAB PO PRN (17:51)
[2023-01-15 19:57] LABS: Glucose,Whole Blood 165 mg/dL (70-110)
[2023-01-15] MEDS: ATORVASTATIN 10 MG TAB PO SCH (20:25)
[2023-01-15] MEDS: ASPIRIN 81 MG PO SCH (20:25)
--- NOTE | 2023-01-15 23:40 | P.HPIM ---
History of Present Illness H&P Date: 01/15/23 Chief Complaint: Shortness of breath Patient is a 72-year-old male with a known history of atrial fibrillation on anticoagulation with Eliquis, diabetes type 2 [id number], CKD stage IV, hypertension, hyperlipidemia, history of ID, obstructive sleep apnea and prior history of smoking who is recently diagnosed with aortic valve endocarditis and MSSA bacteremia currently undergoing antibiotics with PICC line for a 6-week course of IV cefazolin 2 g every 12 hours presents to ER with complaints of shortness of breath started on the day of the admission and though t to be due to acute anxiety and improved quickly. Otherwise patient denies any complaints of chest pain or shortness of breath currently. No fever no chills. No nausea vomiting abdominal pain or diarrhea. On admission patient was tachycardic with heart rate 113 and temperature 99.1 Tmax. Currently patient is on room air. Chest x-ray showed cardiomegaly and mild pulmonary vascular congestion. Correlate with BNP for CHF. EKG showed atrial fibrillation with rapid ventricular response. Laboratory test showed WBC 20.4 hemoglobin 10.4 and RDW 15.6 and platelets 226 Sodium 133 potassium 4.6 chloride 101 bicarb is 19 BUN 73 and creatinine 3.27 and blood sugar 188 proBNP is 249 00, troponin 0.042, 0.397 and albumin 3.2. Magnesium 1.6. Urinalysis showed 4+ protein 3+ glucose trace ketones and elevated RBCs. Influenza A, B, RSV PCR and COVID-19 PCR not detected. Review of Systems Constitutional: Patient denies any fever or chills . no Generalized weakness. Abdomen: Patient denied any nausea or vomiting or abd. pain Cardiovascular: Patient denies any chest pain or short of breath no palpitations. Respiratory: patient denied any cough . no sputum production. No shortness of breath Neurologic: Patient denied any numbness or tingling headache. Musculoskeletal: Patient denies any complaints of joint swelling or deformity. Skin: Negative Psychiatric: Negative Endocrine: No heat or cold intolerance. No recent weight gain. Genitourinary: No dysuria or hematuria. All other 14 point ROS negative except the above Past Medical History Past Medical History: Atrial Fibrillation, COPD, Diabetes Mellitus, Deep Vein Thrombosis (DVT), Eye Disorder, Hyperlipidemia, Hypertension, Myocardial Infarction ([place]), Osteoarthritis (OA), Renal Disease, Sleep Apnea/CPAP/BIPAP Additional Past Medical History / Comment(s): 2016 sepsis, severe back pain, hx bacteremia, DDD, renal cysts being followed by Dr. 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 Past Psychological History: No Psychological Hx Reported Smoking Status: Former smoker - Past Family History Mother Family Medical History: CVA/TIA, Deep Vein Thrombosis (DVT) Additional Family Medical History / Comment(s): Mother is 92 yrs old. She had a CVA which left her with R sided paralysis. Father Family Medical History: Cancer Additional Family Medical History / Comment(s): Father is . Medications and Allergies Home Medications Medication Instructions Recorded Confirmed Type Aspirin 81 mg PO HS 11/05/14 01/15/23 History Simvastatin [Zocor] 20 mg PO HS 11/05/14 01/15/23 History allopurinoL [Zyloprim] 100 mg PO BID 05/04/16 01/15/23 History Cinnamon Bark [Cinnamon] 500 mg PO DAILY 10/06/18 01/15/23 History Metoprolol Tartrate 25 mg PO HS 10/06/18 01/15/23 History Metoprolol Tartrate 50 mg PO DAILY 10/06/18 01/15/23 History Ergocalciferol (Vitamin D2) 1,250 mcg PO MOWEFR@209911/17/22 01/15/23 History [Drisdol (50,000 Iu)] Melatonin 5 mg PO HS 11/17/22 01/15/23 History calcitrioL [Calcitriol] 0.5 mcg PO SUTH@209911/17/22 01/15/23 History Acetaminophen Tab [Tylenol] 650 mg PO Q6HR PRN tab 11/22/22 01/15/23 Rx Albuterol Inhaler [Ventolin Hfa 2 puff INHALATION RT-QID PRN #1 11/22/22 01/15/23 Rx Inhaler] each Apixaban [Eliquis] 2.5 mg PO BID #60 tab 11/22/22 01/15/23 Rx Linagliptin [Tradjenta] 5 mg PO HS #30 tab 11/22/22 01/15/23 Rx Potassium Chloride ER [K-Dur 20] 20 meq PO DAILY #30 tab 12/14/22 01/15/23 Rx Torsemide [Demadex] 40 mg PO DAILY #60 tab 12/14/22 01/15/23 Rx ceFAZolin [Kefzol] 2 gm IVP Q12HR #84 each 12/14/22 01/15/23 Rx Brimonidine Tartrate [Alphagan P 1 drop BOTH EYES BID 01/15/23 01/15/23 History 0.2% Ophth Soln] traMADol HCL 50 - 100 mg PO Q6H PRN 01/15/23 01/15/23 History Allergies Allergy/AdvReac Type Severity Reaction Status Date / Time No Known Allergies Allergy Verified 01/15/23 11:38 Physical Exam Vitals: Vital Signs Temp Pulse Resp BP Pulse Ox 01/15/23 07:24 89 18 125/61 96 01/15/23 07:22 95 01/14/23 22:07 99.1 F 103 H 16 129/66 95 Intake and Output 01/14/23 01/15/23 01/15/23 22:59 06:59 14:59 Other: Weight 119.748 kg PHYSICAL EXAMINATION: Patient is lying in the bed comfortably, no acute distress, awake alert and oriented.. HEENT: Normocephalic. Neck is supple. Pupils reactive. Nostrils clear. Oral cavity is moist. Neck reveals no JVD, carotid bruits, or thyromegaly. CHEST EXAMINATION: Trachea is central. Symmetrical expansion. Lung arnold clear to auscultation and percussion. No wheezing or rhonchi. CARDIAC: Normal S1, S2 with no gallops. No murmurs ABDOMEN: Soft. Bowel sounds present. Nontender. No organomegaly. No abdominal bruits. Extremities: Bilateral 2+ pedal edema. No clubbing or cyanosis Neurologically awake, alert, oriented x3 with well-coordinated movements. No focal deficits noted Skin: No rash or skin lesions. Psychiatric: Coperative. Nonsuicidal, Musculoskeletal: No joint swelling or deformity. Normal range of motion. Results CBC & Chem 7: 01/15/23 16:35 01/15/23 16:35 Labs: Abnormal Lab Results - Last 24 Hours (Table) 01/14/23 01/14/23 01/14/23 Range/Units 22:25 22:25 22:25 WBC 20.4 H (3.8-10.6) k/uL RBC 3.20 L (4.30-5.90) m/uL Hgb 10.4 L (13.0-17.5) gm/dL Hct 33.2 L (39.0-53.0) % MCV 103.6 H (80.0-100.0) fL RDW 15.6 H (11.5-15.5) % Neutrophils # 18.8 H (1.3-7.7) k/uL Lymphocytes # 0.6 L (1.0-4.8) k/uL PT 12.7 H (9.0-12.0) sec INR 1.2 H (<1.2) Sodium 133 L (137-145) mmol/L Carbon Dioxide 19 L (22-30) mmol/L BUN 73 H (9-20) mg/dL Creatinine 3.27 H (0.66-1.25) mg/dL Glucose 188 H (74-99) mg/dL POC Glucose (mg/dL) (70-110) mg/dL Troponin I (0.000-0.034) ng/mL Albumin 3.2 L (3.5-5.0) g/dL Urine Protein (Negative) Urine Glucose (UA) (Negative) Urine Ketones (Negative) Urine Blood (Negative) Urine RBC (0-5) /hpf Urine Mucus (None) /hpf 01/14/23 01/15/23 01/15/23 Range/Units 22:25 00:41 07:40 WBC (3.8-10.6) k/uL RBC (4.30-5.90) m/uL Hgb (13.0-17.5) gm/dL Hct (39.0-53.0) % MCV (80.0-100.0) fL RDW (11.5-15.5) % Neutrophils # (1.3-7.7) k/uL Lymphocytes # (1.0-4.8) k/uL PT (9.0-12.0) sec INR (<1.2) Sodium (137-145) mmol/L Carbon Dioxide (22-30) mmol/L BUN (9-20) mg/dL Creatinine (0.66-1.25) mg/dL Glucose (74-99) mg/dL POC Glucose (mg/dL) (70-110) mg/dL Troponin I 0.042 H* 0.397 H* (0.000-0.034) ng/mL Albumin (3.5-5.0) g/dL Urine Protein 4+ H (Negative) Urine Glucose (UA) 3+ H (Negative) Urine Ketones Trace H (Negative) Urine Blood Moderate H (Negative) Urine RBC 29 H (0-5) /hpf Urine Mucus Rare H (None) /hpf 01/15/23 Range/Units 09:02 WBC (3.8-10.6) k/uL RBC (4.30-5.90) m/uL Hgb (13.0-17.5) gm/dL Hct (39.0-53.0) % MCV (80.0-100.0) fL RDW (11.5-15.5) % Neutrophils # (1.3-7.7) k/uL Lymphocytes # (1.0-4.8) k/uL PT (9.0-12.0) sec INR (<1.2) Sodium (137-145) mmol/L Carbon Dioxide (22-30) mmol/L BUN (9-20) mg/dL Creatinine (0.66-1.25) mg/dL Glucose (74-99) mg/dL POC Glucose (mg/dL) 147 H (70-110) mg/dL Troponin I (0.000-0.034) ng/mL Albumin (3.5-5.0) g/dL Urine Protein (Negative) Urine Glucose (UA) (Negative) Urine Ketones (Negative) Urine Blood (Negative) Urine RBC (0-5) /hpf Urine Mucus (None) /hpf Thrombosis Risk Factor Assmnt - DVT/VTE Prophylaxis DVT/VTE Prophylaxis: Pharmacologic Prophylaxis ordered Assessment and Plan Assessment: Recent history of infected endocarditis of the aortic valve with MSSA bacteremi a. Currently on cefazolin 2 g every 12. Leukocytosis Acute shortness of breath possibly related to anxiety and mild acute CHF with preserved EF.. Resolved now. CKD stage IV with chronic bilateral lower extremity edema Chronic atrial fibrillation on anticoagulation with Eliquis Elevated troponin level likely due to infection and CKD Diabetes type 2 [id number] Hypertension Hyperlipidemia History of ID Obstructive sleep apnea not on CPAP at home Legally blind bilaterally Prior history of smoking Plan: Patient will be continued on telemetry monitoring. Continue with antibiotics with cefazolin 2 g every 12 hours renally adjusted dose. Continue with anticoagulation with Eliquis 2.5 mg twice daily and metoprolol. Patient was given a dose of IV Lasix x1 Continue with insulin sliding scale and home medications. Continue with torsemide 40 mg daily. Cardiology and ID is on board. Follow-up culture reports. Prognosis is guarded. Time with Patient: Greater than 30
[2023-01-16 06:03] LABS: Glucose,Whole Blood 101 mg/dL (70-110)
[2023-01-16] MEDS: INSULIN ASPART (NovoLOG) 100 UNIT/ML VIAL SQ SCH ×4 (06:14→21:32)
[2023-01-16] MEDS: allopurinoL 100 MG TAB PO SCH ×2 (07:50→21:31)
[2023-01-16] MEDS: APIXABAN 2.5 MG TABLET PO SCH ×2 (07:50→21:31)
[2023-01-16] MEDS: ALPRAZolam 0.25 MG TAB PO PRN ×2 (07:50→21:31)
[2023-01-16] MEDS: POTASSIUM CHLORIDE ER 20 MEQ TAB.ER PO SCH (07:50)
[2023-01-16] MEDS: METOPROLOL TARTRATE 50 MG TAB PO SCH ×2 (07:50→21:31)
[2023-01-16] MEDS: TORSEMIDE 20 MG TAB PO SCH (07:57)
[2023-01-16 08:26] LABS: Basophils % (A) 0 %; Eosinophils # (A) 0.1 k/uL (0-0.7); Eosinophils % (A) 1 %; HCT 32.4 % (39.0-53.0); HGB 10.1 gm/dL (13.0-17.5); Hypochromasia Slight; Lymphocytes # (A) 1.7 k/uL (1.0-4.8); Lymphocytes % (A) 11 %; MCHC 31.1 g/dL (31.0-37.0); MCV 106.3 fL (80.0-100.0); Macrocytosis Marked; Mean Platelet Volume 8.5; Monocytes # (A) 0.9 k/uL (0-1.0); Monocytes % (A) 6 %; Neutrophils # (A) 11.9 k/uL (1.3-7.7); Neutrophils % (A) 80 %; Platelet Count 198 k/uL (150-450); RBC 3.05 m/uL (4.30-5.90); RDW 15.8 % (11.5-15.5); WBC 14.9 k/uL (3.8-10.6)
[2023-01-16 08:42] LABS: ALT <6 U/L (4-49); AST 18 U/L (17-59); African American GFR (CKD) 18 (>60 ml/min/1.73 sqM); Albumin 2.7 g/dL (3.5-5.0); Alkaline Phosphatase 66 U/L (38-126); Anion Gap 11 mmol/L; Blood Urea Nitrogen 73 mg/dL (9-20); Calcium 8.6 mg/dL (8.4-10.2); Carbon Dioxide 21 mmol/L (22-30); Chloride 101 mmol/L (98-107); Glucose 82 mg/dL (74-99); Non-African American GFR(CKD) 16 (>60 ml/min/1.73 sqM); Potassium 4.6 mmol/L (3.5-5.1); Sodium 133 mmol/L (137-145); Total Bilirubin 0.5 mg/dL (0.2-1.3); Total Protein 5.8 g/dL (6.3-8.2)
--- NOTE | 2023-01-16 10:36 | P.PN ---
Subjective Progress Note Date: 01/16/23 PROGRESS NOTE The patient is a 72-year-old male with a known history of chronic persistent atrial fibrillation, diabetes mellitus, stage IV chronic kidney disease who was diagnosed in November with endocarditis of the aortic valve who presents with shaking it started at home. He has been doing well since he was discharged home recently. He has been on IV antibiotics. He has been under increased amount of stress because of the illness of his 2 sisters. Yesterday while sitting he started to have some shaking it persisted but was not associated with dyspnea, chest discomfort, dizziness or palpitations. According to him he felt afebrile at home. He denies any nausea or vomiting no cough. In the emergency room he was noted to have leukocytosis. His troponin was mildly elevated but that has been noted in the past. He underwent a KARTHIK in November by Dr. Hernández that showed an ejection fraction of 45-50% with mild to moderate aortic regurgitation and a vegetation on the noncoronary cusp of the aortic valve. He is a nonsmoker. He has a history of hyperlipidemia, diabetes and hypertension January 16: The patient feels better today, he denies any chest discomfort, dizziness or palpitations. He has no further episodes of shaking. He is afebrile him ambulating without difficulties. He denies any nausea or vomiting. He was seen by the infectious disease service and scheduled to undergo repeat echocardiogram. Medications: Aspirin, metoprolol tartrate 50 in the morning and 25 at bedtime, Demadex 40 mg daily,Eliquis 2.5 mg twice a day PHYSICAL EXAMINATION: Blood pressure 144/70 heart rate 80 LUNGS: Clear to auscultation HEART: Irregular rate and rhythm, S1, S2. No S3. systolic ejection murmur ABDOMEN: Soft, nontender, no organomegaly EXTREMETIES: Trace edema LAB: BUN 73, creatinine 3.55, WBC down to 14.9, hemoglobin 10.1 IMPRESSION: 1. Aortic valve endocarditis with leukocytosis, improving 2. Chronic persistent atrial fibrillation 3. Evidence of CHF with mildly impaired systolic function 4. Chronic kidney disease 5. Diabetes mellitus 6. History of hyperlipidemia 7. Troponin elevation most likely representing type 2 event PLAN: 1. Increase beta seth 2. Obtain an echocardiogram with Doppler 3. Follow renal functions 4. Depending on his progress further recommendations will be made Objective - Vital Signs Vital signs: Vital Signs Temp 97.7 F 01/16/23 07:49 Pulse 82 01/16/23 07:49 Resp 18 01/16/23 07:49 BP 144/73 01/16/23 07:49 Pulse Ox 94 L 01/16/23 07:49 FiO2 Intake & Output 01/15/23 01/16/23 01/16/23 18:59 06:59 18:59 Intake Total 118 358 Output Total 600 Balance 118 -600 358 Weight 119.748 kg Intake: Oral 118 358 Output: Urine 600 Other: Voiding Method Urinal Urinal Urinal # Voids 1 1 1 # Bowel Movements 1 - Labs CBC & Chem 7: 01/16/23 06:53 01/16/23 06:53 Labs: Abnormal Lab Results - Last 24 Hours (Table) 01/15/23 01/15/23 01/15/23 Range/Units 11:25 11:30 16:35 WBC 18.6 H (3.8-10.6) k/uL RBC 3.03 L (4.30-5.90) m/uL Hgb 10.0 L (13.0-17.5) gm/dL Hct 32.3 L (39.0-53.0) % MCV 106.6 H (80.0-100.0) fL RDW 15.8 H (11.5-15.5) % Neutrophils # (1.3-7.7) k/uL Macrocytosis Marked A Sodium (137-145) mmol/L Carbon Dioxide (22-30) mmol/L BUN (9-20) mg/dL Creatinine (0.66-1.25) mg/dL POC Glucose (mg/dL) 141 H (70-110) mg/dL Troponin I 0.329 H* (0.000-0.034) ng/mL Total Protein (6.3-8.2) g/dL Albumin (3.5-5.0) g/dL 01/15/23 01/15/23 01/16/23 Range/Units 16:35 19:56 06:53 WBC 14.9 H (3.8-10.6) k/uL RBC 3.05 L (4.30-5.90) m/uL Hgb 10.1 L (13.0-17.5) gm/dL Hct 32.4 L (39.0-53.0) % MCV 106.3 H (80.0-100.0) fL RDW 15.8 H (11.5-15.5) % Neutrophils # 11.9 H (1.3-7.7) k/uL Macrocytosis Marked A Sodium 132 L (137-145) mmol/L Carbon Dioxide (22-30) mmol/L BUN 76 H (9-20) mg/dL Creatinine 3.37 H (0.66-1.25) mg/dL POC Glucose (mg/dL) 165 H (70-110) mg/dL Troponin I (0.000-0.034) ng/mL Total Protein (6.3-8.2) g/dL Albumin (3.5-5.0) g/dL 01/16/23 Range/Units 06:53 WBC (3.8-10.6) k/uL RBC (4.30-5.90) m/uL Hgb (13.0-17.5) gm/dL Hct (39.0-53.0) % MCV (80.0-100.0) fL RDW (11.5-15.5) % Neutrophils # (1.3-7.7) k/uL Macrocytosis Sodium 133 L (137-145) mmol/L Carbon Dioxide 21 L (22-30) mmol/L BUN 73 H (9-20) mg/dL Creatinine 3.55 H (0.66-1.25) mg/dL POC Glucose (mg/dL) (70-110) mg/dL Troponin I (0.000-0.034) ng/mL Total Protein 5.8 L (6.3-8.2) g/dL Albumin 2.7 L (3.5-5.0) g/dL
[2023-01-16 11:18] LABS: Glucose,Whole Blood 154 mg/dL (70-110)
[2023-01-16 11:30] LABS: Erythrocyte Sedimentation Rate 101 mm/hr (0-15)
[2023-01-16 15:26] LABS: C Reactive Protein 15.4 mg/dL (<1.0)
[2023-01-16 16:18] LABS: Glucose,Whole Blood 113 mg/dL (70-110)
[2023-01-16 19:51] LABS: Glucose,Whole Blood 168 mg/dL (70-110)
--- NOTE | 2023-01-16 20:03 | P.PN ---
Subjective Progress Note Date: 01/16/23 Principal diagnosis: Leukocytosis and recent aortic valve endocarditis Patient is a 72-year-old male with multiple comorbidities and recent admission to the hospital and the patient was diagnosed with MSSA aortic valve endocarditis discharged home on cefazolin was doing well presented back to the hospital with increasing shortness of breath also noticed to have elevated white count however no fever. on today's evaluation that is 01/16/2023, patient denies having any fever or any chills patient is breathing more comfortably without need for supplemental oxygen, the patient denies having any chest pain occasional cough no nausea no vomiting no abdominal pain or diarrhea Objective - Vital Signs Vital signs: Vital Signs Temp 97.7 F 01/16/23 07:49 Pulse 82 01/16/23 07:49 Resp 18 01/16/23 07:49 BP 144/73 01/16/23 07:49 Pulse Ox 94 L 01/16/23 07:49 FiO2 Intake & Output 01/15/23 01/16/23 01/16/23 18:59 06:59 18:59 Intake Total 118 358 Output Total 600 Balance 118 -600 358 Weight 119.748 kg Intake: Oral 118 358 Output: Urine 600 Other: Voiding Method Urinal Urinal # Voids 1 1 # Bowel Movements 1 - Exam GENERAL DESCRIPTION: An elderly male lying in bed in no distress RESPIRATORY SYSTEM: Unlabored breathing , decreased breath sounds at bases HEART: S1 S2 regular rate and rhythm , ABDOMEN: Soft , no tenderness EXTREMITIES: No edema feet exam completed with the help of BANK CASHIER - Labs CBC & Chem 7: 01/16/23 06:53 01/16/23 06:53 Labs: Abnormal Lab Results - Last 24 Hours (Table) 01/15/23 01/15/23 01/15/23 Range/Units 07:40 09:02 11:25 WBC (3.8-10.6) k/uL RBC (4.30-5.90) m/uL Hgb (13.0-17.5) gm/dL Hct (39.0-53.0) % MCV (80.0-100.0) fL RDW (11.5-15.5) % Macrocytosis Sodium (137-145) mmol/L BUN (9-20) mg/dL Creatinine (0.66-1.25) mg/dL POC Glucose (mg/dL) 147 H 141 H (70-110) mg/dL Troponin I 0.397 H* (0.000-0.034) ng/mL 01/15/23 01/15/23 01/15/23 Range/Units 11:30 16:35 16:35 WBC 18.6 H (3.8-10.6) k/uL RBC 3.03 L (4.30-5.90) m/uL Hgb 10.0 L (13.0-17.5) gm/dL Hct 32.3 L (39.0-53.0) % MCV 106.6 H (80.0-100.0) fL RDW 15.8 H (11.5-15.5) % Macrocytosis Marked A Sodium 132 L (137-145) mmol/L BUN 76 H (9-20) mg/dL Creatinine 3.37 H (0.66-1.25) mg/dL POC Glucose (mg/dL) (70-110) mg/dL Troponin I 0.329 H* (0.000-0.034) ng/mL 01/15/23 Range/Units 19:56 WBC (3.8-10.6) k/uL RBC (4.30-5.90) m/uL Hgb (13.0-17.5) gm/dL Hct (39.0-53.0) % MCV (80.0-100.0) fL RDW (11.5-15.5) % Macrocytosis Sodium (137-145) mmol/L BUN (9-20) mg/dL Creatinine (0.66-1.25) mg/dL POC Glucose (mg/dL) 165 H (70-110) mg/dL Troponin I (0.000-0.034) ng/mL Assessment and Plan (1) Aortic valve vegetation Current Visit: Yes Status: Acute Code(s): I33.0 - ACUTE AND SUBACUTE INFECTIVE ENDOCARDITIS SNOMED Code(s): 708387321 (2) Leukocytosis Current Visit: Yes Status: Acute Code(s): D72.829 - ELEVATED WHITE BLOOD CELL COUNT, UNSPECIFIED SNOMED Code(s): 256884745 Plan: 1patient presented to hospital with increasing shortness of breath more for sudden onset in this patient with a recent diagnosis of aortic valve endocarditis with MSSA bacteremia in this patient who has cleared his bacteremia and the patient was doing well with a sudden onset of shortness of breath and did have elevated white count with concern for possible complication associated with aortic valve endocarditis as no other obvious focus for this elevated white count 2-blood culture has been repeated which are negative so far, and the patient white count is trending down down to 14,000 today 3-repeat echocardiogram is currently pending 4-patient to continue cefazolin 2 g every 12 hours and monitor clinical course closely
[2023-01-16] MEDS: ATORVASTATIN 10 MG TAB PO SCH (21:31)
[2023-01-16] MEDS: ASPIRIN 81 MG PO SCH (21:31)
[2023-01-17 06:00] LABS: Glucose,Whole Blood 94 mg/dL (70-110)
[2023-01-17] MEDS: INSULIN ASPART (NovoLOG) 100 UNIT/ML VIAL SQ SCH ×4 (06:13→20:13)
[2023-01-17 07:55] LABS: HCT 35.4 % (39.0-53.0); HGB 10.7 gm/dL (13.0-17.5); Hypochromasia Moderate; MCH 32.4 pg (25.0-35.0); MCHC 30.1 g/dL (31.0-37.0); MCV 107.7 fL (80.0-100.0); Macrocytosis Marked; Mean Platelet Volume 8.5; Platelet Count 244 k/uL (150-450); RBC 3.29 m/uL (4.30-5.90); RDW 15.6 % (11.5-15.5); WBC 13.8 k/uL (3.8-10.6)
[2023-01-17 08:14] LABS: Calcium 8.8 mg/dL (8.4-10.2); Potassium 4.6 mmol/L (3.5-5.1)
[2023-01-17] MEDS: APIXABAN 2.5 MG TABLET PO SCH ×2 (08:50→19:58)
[2023-01-17] MEDS: METOPROLOL TARTRATE 50 MG TAB PO SCH ×2 (08:50→19:58)
[2023-01-17] MEDS: allopurinoL 100 MG TAB PO SCH ×2 (08:50→19:59)
[2023-01-17] MEDS: TORSEMIDE 20 MG TAB PO SCH (08:50)
[2023-01-17] MEDS: POTASSIUM CHLORIDE ER 20 MEQ TAB.ER PO SCH (08:50)
--- NOTE | 2023-01-17 11:13 | CA ---
Transthoracic Echo Report Name: Esteban Johnson Age: 72 Gender: M : 1950 Exam Date: 01/17/2023 07:55 Exam Location: [facility] Ht (in): 69 Wt (lb): 264 Ordering Physician: Art Malik MD Attending/Referring Phys: Powerhouse Helper Nereida Cazares RDCS Procedure CPT: Indications: recent endocarditis aortic valve Cardiac Hx: Technical Quality: Fair Contrast 1: Total Dose (mL): Contrast 2: Total Dose (mL): MEASUREMENTS (Male / Female) Normal Values 2D ECHO LV Diastolic Diameter PLAX 5.0 cm 4.2 - 5.9 / 3.9 - 5.3 cm LV Systolic Diameter PLAX 3.6 cm IVS Diastolic Thickness 1.5 cm 0.6 - 1.0 / 0.6 - 0.9 cm LVPW Diastolic Thickness 1.4 cm 0.6 - 1.0 / 0.6 - 0.9 cm LV Relative Wall Thickness 0.6 RV Internal Dim ED PLAX 4.9 cm LA Volume 155.1 cm??? 18 - 58 / 22 - 52 cm??? M-MODE Aortic Root Diameter MM 3.9 cm LA Systolic Diameter MM 5.5 cm LA Ao Ratio MM 1.4 AV Cusp Separation MM 1.7 cm DOPPLER AV Peak Velocity 163.5 cm/s AV Peak Gradient 10.7 mmHg AV Mean Velocity 112.1 cm/s AV Mean Gradient 5.6 mmHg AV Velocity Time Integral 30.7 cm AI Peak Velocity 522.6 cm/s AI Peak Gradient 109.2 mmHg AI Pressure Half Time 591.0 ms LVOT Peak Velocity 113.0 cm/s LVOT Peak Gradient 5.1 mmHg LVOT Velocity Time Integral 23.7 cm MV Area PHT 7.9 cm??? Mitral E Point Velocity 111.5 cm/s Mitral A Point Velocity 0.9 cm/s Mitral E to A Ratio 122.1 MV Deceleration Time 95.9 ms MV E' Velocity 9.5 cm/s Mitral E to MV E' Ratio 11.7 TR Peak Velocity 380.7 cm/s TR Peak Gradient 58.0 mmHg Right Atrial Pressure 20.0 mmHg Pulmonary Artery Systolic Pressu 78.0 mmHg Right Ventricular Systolic Press 78.0 mmHg FINDINGS Left Ventricle Moderately increased left ventricular wall thickness. Left ventricular cavity size normal. Normal left ventricular systolic function with no obvious regional wall motion abnormalities. Left ventricular ejection fraction is estimated at 55-60 %. Right Ventricle Severe right ventricular dilatation. Severe pulmonary hypertension. Right ventricular systolic pressure estimated at 78 mm hg. Right Atrium Moderate right atrial dilatation. Left Atrium Severely increased left atrial volume. Severely increased left atrial area. Mitral Valve Structurally normal mitral valve. No evidence of vegetation on the mitral valve. [id number] mitral regurgitation. Aortic Valve Aortic valve not well visualized. No vegetations seen (suggest transesophageal echo if suspicion high. Moderate aortic regurgitation. Tricuspid Valve [id number] tricuspid regurgitation. Pulmonic Valve Trace pulmonic regurgitation. Pericardium No pericardial effusion. Aorta Normal size aortic root and proximal ascending aorta. CONCLUSIONS Normal LV systolic function Pulmonary hypertension appears to be severe Right ventricular dilation Moderate to severe tricuspid regurgitation Moderate aortic insufficiency Previewed by: Dr. Pedro Hall MD (Electronically Signed) Final Date: 17 January 2023 11:12
--- NOTE | 2023-01-17 11:14 | P.PN ---
Subjective Progress Note Date: 01/17/23 Principal diagnosis: Leukocytosis and recent aortic valve endocarditis Patient is a 72-year-old male with multiple comorbidities and recent admission to the hospital and the patient was diagnosed with MSSA aortic valve endocarditis discharged home on cefazolin was doing well presented back to the hospital with increasing shortness of breath also noticed to have elevated white count however no fever. on today's evaluation that is 01/17/2023, patient denies having any fever or any chills patient is breathing comfortably on room air, the patient denies having any chest pain occasional cough no nausea no vomiting no abdominal pain or diarrhea, patient is feeling better wants to go home Objective - Vital Signs Vital signs: Vital Signs Temp 97.9 F 01/17/23 08:00 Pulse 84 01/17/23 08:00 Resp 18 01/17/23 08:00 BP 131/61 01/17/23 08:00 Pulse Ox 96 01/17/23 08:00 FiO2 Intake & Output 01/16/23 01/17/23 01/17/23 18:59 06:59 18:59 Intake Total 834 30 Output Total 170 1350 550 Balance 664 -1320 -550 Intake: IV 30 Invasive Line 1 20 Invasive Line 2 10 Oral 834 Output: Urine 170 1350 550 Other: Voiding Method Urinal Urinal Urinal # Voids 1 1 - Exam GENERAL DESCRIPTION: An elderly male lying in bed in no distress RESPIRATORY SYSTEM: Unlabored breathing , decreased breath sounds at bases HEART: S1 S2 regular rate and rhythm , ABDOMEN: Soft , no tenderness EXTREMITIES: No edema feet - Labs CBC & Chem 7: 01/17/23 07:00 01/17/23 07:00 Labs: Abnormal Lab Results - Last 24 Hours (Table) 01/16/23 01/16/23 01/16/23 Range/Units 06:53 06:53 11:16 WBC (3.8-10.6) k/uL RBC (4.30-5.90) m/uL Hgb (13.0-17.5) gm/dL Hct (39.0-53.0) % MCV (80.0-100.0) fL MCHC (31.0-37.0) g/dL RDW (11.5-15.5) % Macrocytosis ESR 101 H (0-15) mm/hr Sodium (137-145) mmol/L BUN (9-20) mg/dL Creatinine (0.66-1.25) mg/dL POC Glucose (mg/dL) 154 H (70-110) mg/dL C-Reactive Protein 15.4 H (<1.0) mg/dL 01/16/23 01/16/23 01/17/23 Range/Units 16:16 19:50 07:00 WBC (3.8-10.6) k/uL RBC (4.30-5.90) m/uL Hgb (13.0-17.5) gm/dL Hct (39.0-53.0) % MCV (80.0-100.0) fL MCHC (31.0-37.0) g/dL RDW (11.5-15.5) % Macrocytosis ESR (0-15) mm/hr Sodium 135 L (137-145) mmol/L BUN 73 H (9-20) mg/dL Creatinine 3.57 H (0.66-1.25) mg/dL POC Glucose (mg/dL) 113 H 168 H (70-110) mg/dL C-Reactive Protein (<1.0) mg/dL 01/17/23 Range/Units 07:00 WBC 13.8 H (3.8-10.6) k/uL RBC 3.29 L (4.30-5.90) m/uL Hgb 10.7 L (13.0-17.5) gm/dL Hct 35.4 L (39.0-53.0) % MCV 107.7 H (80.0-100.0) fL MCHC 30.1 L (31.0-37.0) g/dL RDW 15.6 H (11.5-15.5) % Macrocytosis Marked A ESR (0-15) mm/hr Sodium (137-145) mmol/L BUN (9-20) mg/dL Creatinine (0.66-1.25) mg/dL POC Glucose (mg/dL) (70-110) mg/dL C-Reactive Protein (<1.0) mg/dL Microbiology - Last 24 Hours (Table) 01/15/23 00:30 Blood Culture - Preliminary Blood 01/15/23 00:15 Blood Culture - Preliminary Blood Assessment and Plan (1) Aortic valve vegetation Current Visit: Yes Status: Acute Code(s): I33.0 - ACUTE AND SUBACUTE INFECTIVE ENDOCARDITIS SNOMED Code(s): 965588444 (2) Leukocytosis Current Visit: Yes Status: Acute Code(s): D72.829 - ELEVATED WHITE BLOOD CELL COUNT, UNSPECIFIED SNOMED Code(s): 209927333 Plan: 1patient presented to hospital with increasing shortness of breath more for sudden onset in this patient with a recent diagnosis of aortic valve endoc arditis with MSSA bacteremia in this patient who has cleared his bacteremia and the patient was doing well with a sudden onset of shortness of breath and did have elevated white count with concern for possible complication associated with aortic valve endocarditis as no other obvious focus for this elevated white count 2-blood culture has been repeated which are negative so far, and the patient wh ite count is trending down down to 13,000 today 3-repeat echocardiogram is currently pending 4-patient to continue cefazolin 2 g every 12 hours to finish a 6 week course of therapy and monitor his clinical course closely
[2023-01-17 11:36] LABS: Glucose,Whole Blood 157 mg/dL (70-110)
[2023-01-17 16:40] LABS: Glucose,Whole Blood 118 mg/dL (70-110)
[2023-01-17] MEDS: ALPRAZolam 0.25 MG TAB PO PRN (17:10)
[2023-01-17] MEDS: ATORVASTATIN 10 MG TAB PO SCH (19:58)
[2023-01-17] MEDS: ASPIRIN 81 MG PO SCH (19:59)
[2023-01-17 20:11] LABS: Glucose,Whole Blood 195 mg/dL (70-110)
--- NOTE | 2023-01-17 20:36 | P.PN ---
Subjective Progress Note Date: 01/17/23 The patient is a 72-year-old male with a known history of chronic persistent atrial fibrillation, diabetes mellitus, stage IV chronic kidney disease who was diagnosed in November with endocarditis of the aortic valve who presents with shaking it started at home. He has been doing well since he was discharged home recently. He has been on IV antibiotics. He has been under increased amount of stress because of the illness of his 2 sisters. Yesterday while sitting he started to have some shaking it persisted but was not associated with dyspnea, chest discomfort, dizziness or palpitations. According to him he felt afebrile at home. He denies any nausea or vomiting no cough. In the emergency room he was noted to have leukocytosis. His troponin was mildly elevated but that has been noted in the past. He underwent a KARTHIK in November by Dr. Hernández that showed an ejection fraction of 45-50% with mild to moderate aortic regurgitation and a vegetation on the noncoronary cusp of the aortic valve. He is a nonsmoker. He has a history of hyperlipidemia, diabetes and hypertension. January 16: The patient feels better today, he denies any chest discomfort, dizziness or palpitations. He has no further episodes of shaking. He is afebrile him ambulating without difficulties. He denies any nausea or vomiting. He was seen by the infectious disease service and scheduled to undergo repeat echocard iogram. January 17: ECHO shows EF 55-60%, elevated RVSP 78, no evidence of vegetation. He is out of bed to chair, feeling good. He has been ambulatory around the room and feels at his baseline. He wants to go home. PHYSICAL EXAMINATION: VS reviewed General: A/Ox3. LUNGS: Clear to auscultation HEART: Irregular rate and rhythm, S1, S2. No S3. systolic ejection murmur ABDOMEN: Soft, nontender, no organomegaly EXTREMETIES: Trace edema LAB: creatinine 3.57 (stable), WBC down to 13.8 IMPRESSION: 1. Aortic valve endocarditis with leukocytosis, improving 2. Chronic persistent atrial fibrillation 3. Evidence of CHF with mildly impaired systolic function 4. Chronic kidney disease 5. Diabetes mellitus 6. History of hyperlipidemia 7. Troponin elevation most likely representing type 2 event PLAN: ECHO reviewed, elevated RVSP, no vegetation. Continue IV antibiotics as per ID recommendations. OK to DC home from cardiology standpoint. Please call with any questions. Objective - Vital Signs Vital signs: Vital Signs Temp 97.9 F 01/17/23 08:00 Pulse 70 01/17/23 16:00 Resp 18 01/17/23 14:00 BP 145/74 01/17/23 12:00 Pulse Ox 95 01/17/23 16:00 FiO2 Intake & Output 01/17/23 01/17/23 01/18/23 06:59 18:59 06:59 Intake Total 30 50 Output Total 1350 550 200 Balance -1320 -500 -200 Intake: IV 30 Invasive Line 1 20 Invasive Line 2 10 Intake, IV Titration 50 Amount ceFAZolin 2 gm In Sodium 50 Chloride 0.9% 50 ml @ 100 mls/hr IVPB Q12HR [facility] Rx #:[id number] Output: Urine 1350 550 200 Other: Voiding Method Urinal Urinal # Voids 1 1 - Labs CBC & Chem 7: 01/17/23 07:00 01/17/23 07:00 Labs: Abnormal Lab Results - Last 24 Hours (Table) 01/17/23 01/17/23 01/17/23 Range/Units 07:00 07:00 11:34 WBC 13.8 H (3.8-10.6) k/uL RBC 3.29 L (4.30-5.90) m/uL Hgb 10.7 L (13.0-17.5) gm/dL Hct 35.4 L (39.0-53.0) % MCV 107.7 H (80.0-100.0) fL MCHC 30.1 L (31.0-37.0) g/dL RDW 15.6 H (11.5-15.5) % Macrocytosis Marked A Sodium 135 L (137-145) mmol/L BUN 73 H (9-20) mg/dL Creatinine 3.57 H (0.66-1.25) mg/dL POC Glucose (mg/dL) 157 H (70-110) mg/dL 01/17/23 01/17/23 Range/Units 16:38 20:07 WBC (3.8-10.6) k/uL RBC (4.30-5.90) m/uL Hgb (13.0-17.5) gm/dL Hct (39.0-53.0) % MCV (80.0-100.0) fL MCHC (31.0-37.0) g/dL RDW (11.5-15.5) % Macrocytosis Sodium (137-145) mmol/L BUN (9-20) mg/dL Creatinine (0.66-1.25) mg/dL POC Glucose (mg/dL) 118 H 195 H (70-110) mg/dL Microbiology - Last 24 Hours (Table) 01/15/23 00:30 Blood Culture - Preliminary Blood 01/15/23 00:15 Blood Culture - Preliminary Blood
[2023-01-17] MEDS ORDERED: ALPRAZolam 0.25 MG TAB PO STA (20:43)
[2023-01-17] MEDS ORDERED: MELATONIN 5 MG TABLET PO SCH (21:00)
--- NOTE | 2023-01-18 01:08 | P.PN ---
Subjective Progress Note Date: 01/16/23 Patient is a 72-year-old male with a known history of atrial fibrillation on anticoagulation with Eliquis, diabetes type 2 [id number], CKD stage IV, hypertension, hyperlipidemia, history of AL, obstructive sleep apnea and prior history of smoking who is recently diagnosed with aortic valve endo carditis and MSSA bacteremia currently undergoing antibiotics with PICC line for a 6-week course of IV cefazolin 2 g every 12 hours presents to ER with complaints of shortness of breath started on the day of the admission and thought to be due to acute anxiety and improved quickly. Otherwise patient denies any complaints of chest pain or shortness of breath currently. No fever no chills. No nausea vomiting abdominal pain or diarrhea. On admission patient was tachycardic with heart rate 113 and temperature 99.1 Tmax. Currently patient is on room air. Chest x-ray showed cardiomegaly and mild pulmonary vascular congestion. Correlate with BNP for CHF. EKG showed atrial fibrillation with rapid ventricular response. Laboratory test showed WBC 20.4 hemoglobin 10.4 and RDW 15.6 and platelets 226 Sodium 133 potassium 4.6 chloride 101 bicarb is 19 BUN 73 and creatinine 3.27 and blood sugar 188 proBNP is 249 00, troponin 0.042, 0.397 and albumin 3.2. Magnesium 1.6. Urinalysis showed 4+ protein 3+ glucose trace ketones and elevated RBCs. Influenza A, B, RSV PCR and COVID-19 PCR not detected. 01/16/2023 Patient is currently resting in bed. Awake and alert and oriented. Able to walk to the bathroom without shortness of breath or dizziness. No chest pain or palpitations. No nausea vomiting abdominal pain or diarrhea. Patient has been afebrile. Currently on room air. Laboratory data WBC 14.9 hemoglobin 10.1 and platelets 198 sodium 133 potassium 4.6 chloride 101 bicarb is 21 BUN 73 and creatinine 3.55 and albumin 2.7 CRP 15.4. Patient is being current antibiotics cefazolin as per ID recommendations. 2D echocardiogram is pending. Cardiology is on board. Current medications reviewed. Objective - Vital Signs Vital signs: Vital Signs Temp 97.9 F 01/16/23 16:00 Pulse 84 01/16/23 16:00 Resp 16 01/16/23 16:00 BP 121/57 01/16/23 16:00 Pulse Ox 94 L 01/16/23 16:00 FiO2 Intake & Output 01/16/23 01/16/23 01/17/23 06:59 18:59 06:59 Intake Total 834 Output Total 600 170 200 Balance -600 664 -200 Intake: Oral 834 Output: Urine 600 170 200 Other: Voiding Method Urinal Urinal # Voids 1 1 1 - Exam PHYSICAL EXAMINATION: Patient is lying in the bed comfortably, no acute distress, awake alert and oriented.. HEENT: Normocephalic. Neck is supple. Pupils reactive. Nostrils clear. Oral c avity is moist. Neck reveals no JVD, carotid bruits, or thyromegaly. CHEST EXAMINATION: Trachea is central. Symmetrical expansion. Lung arnold clear to auscultation and percussion. No wheezing or rhonchi. CARDIAC: Normal S1, S2 with no gallops. No murmurs ABDOMEN: Soft. Bowel sounds present. Nontender. No organomegaly. No abdominal bruits. Extremities: Bilateral 2+ pedal edema. No clubbing or cyanosis Neurologically awake, alert, oriented x3 with well-coordinated movements. No focal deficits noted Skin: No rash or skin lesions. Psychiatric: Coperative. Nonsuicidal, Musculoskeletal: No joint swelling or deformity. Normal range of motion. - Labs CBC & Chem 7: 01/17/23 07:00 01/17/23 07:00 Labs: Abnormal Lab Results - Last 24 Hours (Table) 01/16/23 01/16/23 01/16/23 Range/Units 06:53 06:53 11:16 WBC 14.9 H (3.8-10.6) k/uL RBC 3.05 L (4.30-5.90) m/uL Hgb 10.1 L (13.0-17.5) gm/dL Hct 32.4 L (39.0-53.0) % MCV 106.3 H (80.0-100.0) fL RDW 15.8 H (11.5-15.5) % Neutrophils # 11.9 H (1.3-7.7) k/uL Macrocytosis Marked A ESR 101 H (0-15) mm/hr Sodium 133 L (137-145) mmol/L Carbon Dioxide 21 L (22-30) mmol/L BUN 73 H (9-20) mg/dL Creatinine 3.55 H (0.66-1.25) mg/dL POC Glucose (mg/dL) 154 H (70-110) mg/dL C-Reactive Protein 15.4 H (<1.0) mg/dL Total Protein 5.8 L (6.3-8.2) g/dL Albumin 2.7 L (3.5-5.0) g/dL 01/16/23 01/16/23 Range/Units 16:16 19:50 WBC (3.8-10.6) k/uL RBC (4.30-5.90) m/uL Hgb (13.0-17.5) gm/dL Hct (39.0-53.0) % MCV (80.0-100.0) fL RDW (11.5-15.5) % Neutrophils # (1.3-7.7) k/uL Macrocytosis ESR (0-15) mm/hr Sodium (137-145) mmol/L Carbon Dioxide (22-30) mmol/L BUN (9-20) mg/dL Creatinine (0.66-1.25) mg/dL POC Glucose (mg/dL) 113 H 168 H (70-110) mg/dL C-Reactive Protein (<1.0) mg/dL Total Protein (6.3-8.2) g/dL Albumin (3.5-5.0) g/dL Assessment and Plan Assessment: 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 Currently on cefazolin 2 g every 12. Leukocytosis. improving slowly Acute shortness of breath possibly related to anxiety and mild acute CHF with preserved EF.. Resolved now. CKD stage IV with chronic bilateral lower extremity edema Chronic atrial fibrillation on anticoagulation with Eliquis Elevated troponin level likely due to infection and CKD Diabetes type 2 fog-tgjgffd-ehypjdbir Hypertension Hyperlipidemia History of AL Obstructive sleep apnea not on CPAP at home Legally blind bilaterally Prior history of smoking Plan: Patient will be continued on telemetry monitoring. Continue with antibiotics with cefazolin 2 g every 12 hours renally adjusted dose. Continue with anticoagulation with Eliquis 2.5 mg twice daily and metoprolol. Patient was given a dose of IV Lasix x1 Continue with insulin sliding scale and home medications. Continue with torsemide 40 mg daily. Cardiology and ID is on board. Follow-up culture reports. 2D echocardiogram to be done tomorrow. Prognosis is guarded.
--- NOTE | 2023-01-18 01:10 | P.PN ---
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 Otherwise patient denies any complaints of chest pain or shortness of breath currently. No fever no chills. No nausea vomiting abdominal pain or diarrhea. On admission patient was tachycardic with heart rate 113 and temperature 99.1 Tmax. Currently patient is on room air. Chest x-ray showed cardiomegaly and mild pulmonary vascular congestion. Correlate with BNP for CHF. EKG showed atrial fibrillation with rapid ventricular response. Laboratory test showed WBC 20.4 hemoglobin 10.4 and RDW 15.6 and platelets 226 Sodium 133 potassium 4.6 chloride 101 bicarb is 19 BUN 73 and creatinine 3.27 and blood sugar 188 proBNP is 249 00, troponin 0.042, 0.397 and albumin 3.2. Magnesium 1.6. Urinalysis showed 4+ protein 3+ glucose trace ketones and elevated RBCs. Influenza A, B, RSV PCR and COVID-19 PCR not detected. 01/16/2023 Patient is currently resting in bed. Awake and alert and oriented. Able to walk to the bathroom without shortness of breath or dizziness. No chest pain or palpitations. No nausea vomiting abdominal pain or diarrhea. Patient has been afebrile. Currently on room air. Laboratory data WBC 14.9 hemoglobin 10.1 and platelets 198 sodium 133 potassium 4.6 chloride 101 bicarb is 21 BUN 73 and creatinine 3.55 and albumin 2.7 CRP 15.4. Patient is being current antibiotics cefazolin as per ID recommendations. 2D echocardiogram is pending. Cardiology is on board. 01/17/2023 Patient is currently sitting in the chair. Awake alert and oriented x3. Currently on room air. No complaints of chest pain or shortness of breath. No nausea vomiting abdominal pain or diarrhea. No cough or sputum production. Patient has been afebrile. Laboratory data showed WBC trending down to 13.8 hemoglobin 10.7 platelets 244 BUN 73 and creatinine 3.57. 2D echocardiogram was done and report is pending. Anticipate discharge in the next 24 hours. Current medications reviewed. Objective - Vital Signs Vital signs: Vital Signs Temp 97.9 F 01/17/23 20:00 Pulse 78 01/17/23 20:00 Resp 18 01/17/23 20:00 BP 125/73 01/17/23 20:00 Pulse Ox 97 01/17/23 20:00 FiO2 Intake & Output 01/17/23 01/17/23 01/18/23 06:59 18:59 06:59 Intake Total 30 50 Output Total 1350 550 400 Balance -1320 -500 -400 Intake: IV 30 Invasive Line 1 20 Invasive Line 2 10 Intake, IV Titration 50 Amount ceFAZolin 2 gm In Sodium 50 Chloride 0.9% 50 ml @ 100 mls/hr IVPB Q12HR OWEN Rx #:[id number] Output: Urine 1350 550 400 Other: Voiding Method Urinal Urinal Urinal # Voids 1 1 - Exam PHYSICAL EXAMINATION: Patient is lying in the bed comfortably, no acute distress, awake alert and oriented.. HEENT: Normocephalic. Neck is supple. Pupils reactive. Nostrils clear. Oral cav ity is moist. Neck reveals no JVD, carotid bruits, or thyromegaly. CHEST EXAMINATION: Trachea is central. Symmetrical expansion. Lung arnold clear to auscultation and percussion. No wheezing or rhonchi. CARDIAC: Normal S1, S2 with no gallops. No murmurs ABDOMEN: Soft. Bowel sounds present. Nontender. No organomegaly. No abdominal bruits. Extremities: Bilateral 2+ pedal edema. No clubbing or cyanosis Neurologically awake, alert, oriented x3 with well-coordinated movements. No focal deficits noted Skin: No rash or skin lesions. Psychiatric: Coperative. Nonsuicidal, Musculoskeletal: No joint swelling or deformity. Normal range of motion. - Labs CBC & Chem 7: 01/17/23 07:00 01/17/23 07:00 Labs: Abnormal Lab Results - Last 24 Hours (Table) 01/17/23 01/17/23 01/17/23 Range/Units 07:00 07:00 11:34 WBC 13.8 H (3.8-10.6) k/uL RBC 3.29 L (4.30-5.90) m/uL Hgb 10.7 L (13.0-17.5) gm/dL Hct 35.4 L (39.0-53.0) % MCV 107.7 H (80.0-100.0) fL MCHC 30.1 L (31.0-37.0) g/dL RDW 15.6 H (11.5-15.5) % Macrocytosis Marked A Sodium 135 L (137-145) mmol/L BUN 73 H (9-20) mg/dL Creatinine 3.57 H (0.66-1.25) mg/dL POC Glucose (mg/dL) 157 H (70-110) mg/dL 01/17/23 01/17/23 Range/Units 16:38 20:07 WBC (3.8-10.6) k/uL RBC (4.30-5.90) m/uL Hgb (13.0-17.5) gm/dL Hct (39.0-53.0) % MCV (80.0-100.0) fL MCHC (31.0-37.0) g/dL RDW (11.5-15.5) % Macrocytosis Sodium (137-145) mmol/L BUN (9-20) mg/dL Creatinine (0.66-1.25) mg/dL POC Glucose (mg/dL) 118 H 195 H (70-110) mg/dL Microbiology - Last 24 Hours (Table) 01/15/23 00:30 Blood Culture - Preliminary Blood 01/15/23 00:15 Blood Culture - Preliminary Blood Assessment and Plan Assessment: 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 Currently on cefazolin 2 g every 12. Leukocytosis. improving slowly Acute shortness of breath possibly related to anxiety and mild acute CHF with preserved EF.. Resolved now. CKD stage IV with chronic bilateral lower extremity edema Chronic atrial fibrillation on anticoagulation with Eliquis Elevated troponin level likely due to infection and CKD Diabetes type 2 [id number] Hypertension Hyperlipidemia History of VT Obstructive sleep apnea not on CPAP at home Legally blind bilaterally Prior history of smoking Plan: Patient will be continued on telemetry monitoring. Continue with antibiotics with cefazolin 2 g every 12 hours renally adjusted dose. Continue with anticoagulation with Eliquis 2.5 mg twice daily and metoprolol. Patient was given a dose of IV Lasix x1 Continue with insulin sliding scale and home medications. Continue with torsemide 40 mg daily. Cardiology and ID is on board. Follow-up culture reports. 2D echocardiogram Report pending. Cardiology is on board.. Prognosis is guarded.
[2023-01-18 05:59] LABS: Glucose,Whole Blood 95 mg/dL (70-110)
[2023-01-18] MEDS: INSULIN ASPART (NovoLOG) 100 UNIT/ML VIAL SQ SCH ×2 (06:09→12:55)
[2023-01-18] MEDS: TORSEMIDE 20 MG TAB PO SCH (08:38)
[2023-01-18] MEDS: APIXABAN 2.5 MG TABLET PO SCH (08:38)
[2023-01-18] MEDS: allopurinoL 100 MG TAB PO SCH (08:38)
[2023-01-18] MEDS: POTASSIUM CHLORIDE ER 20 MEQ TAB.ER PO SCH (08:38)
[2023-01-18] MEDS: METOPROLOL TARTRATE 50 MG TAB PO SCH (08:38)
[2023-01-18 09:17] LABS: Basophils # (A) 0.1 k/uL (0-0.2); Basophils % (A) 0 %; Eosinophils # (A) 0.2 k/uL (0-0.7); Eosinophils % (A) 2 %; HCT 35.3 % (39.0-53.0); HGB 10.7 gm/dL (13.0-17.5); Hypochromasia Slight; Lymphocytes # (A) 1.4 k/uL (1.0-4.8); Lymphocytes % (A) 12 %; MCH 31.6 pg (25.0-35.0); MCHC 30.3 g/dL (31.0-37.0); MCV 104.3 fL (80.0-100.0); Macrocytosis Moderate; Mean Platelet Volume 8.6; Monocytes # (A) 0.6 k/uL (0-1.0); Monocytes % (A) 6 %; Neutrophils % (A) 78 %; Platelet Count 222 k/uL (150-450); RBC 3.39 m/uL (4.30-5.90); RDW 15.9 % (11.5-15.5); WBC 11.5 k/uL (3.8-10.6)
[2023-01-18 09:28] LABS: Calcium 8.6 mg/dL (8.4-10.2); Potassium 4.3 mmol/L (3.5-5.1)
[2023-01-18 09:37] VITALS: BP 130/68; PULSE 92; RESP 20; TEMP 97.5
[2023-01-18 11:59] LABS: Glucose,Whole Blood 180 mg/dL (70-110)
--- NOTE | 2023-01-18 12:47 | P.PN ---
Subjective Progress Note Date: 01/18/23 The patient is a 72-year-old male with a known history of chronic persistent atrial fibrillation, diabetes mellitus, stage IV chronic kidney disease who was diagnosed in November with endocarditis of the aortic valve who presents with shaking it started at home. He has been doing well since he was discharged home recently. He has been on IV antibiotics. He has been under increased amount of stress because of the illness of his 2 sisters. Yesterday while sitting he started to have some shaking it persisted but was not associated with dyspnea, chest discomfort, dizziness or palpitations. According to him he felt afebrile at home. He denies any nausea or vomiting no cough. In the emergency room he was noted to have leukocytosis. His troponin was mildly elevated but that has been noted in the past. He underwent a KARTHIK in November by Dr. Hernández that showed an ejection fraction of 45-50% with mild to moderate aortic regurgitation and a vegetation on the noncoronary cusp of the aortic valve. He is a nonsmoker. He has a history of hyperlipidemia, diabetes and hypertension. January 16: The patient feels better today, he denies any chest discomfort, dizziness or palpitations. He has no further episodes of shaking. He is afebrile him ambulating without difficulties. He denies any nausea or vomiting. He was seen by the infectious disease service and scheduled to undergo repeat echocard iogram. January 17: ECHO shows EF 55-60%, elevated RVSP 78, no evidence of vegetation. He is out of bed to chair, feeling good. He has been ambulatory around the room and feels at his baseline. He wants to go home. January 18: Doing well, he wants to go home. Case discussed with Dr. Malik, ID, no KARTHIK recommended at this time. blood cultures neg x2 at 48 hours. Denies any chest pain or shortness of breath. PHYSICAL EXAMINATION: VS reviewed General: A/Ox3. LUNGS: Clear to auscultation HEART: Irregular rate and rhythm, S1, S2. No S3. systolic ejection murmur ABDOMEN: Soft, nontender, no organomegaly EXTREMETIES: Trace edema IMPRESSION: 1. Aortic valve endocarditis with leukocytosis, improving 2. Chronic persistent atrial fibrillation 3. Evidence of CHF with mildly impaired systolic function 4. Chronic kidney disease 5. Diabetes mellitus 6. History of hyperlipidemia 7. Troponin elevation most likely representing type 2 event PLAN: Recommend repeating ECHO in 1-2 weeks as on outpatient. No indication for repeating KARTHIK at this time. He has a follow up appointment next week in the clinic. OK to DC home from cardiology standpoint. Please call with any questions. Objective - Vital Signs Vital signs: Vital Signs Temp 97.5 F L 01/18/23 08:32 Pulse 92 01/18/23 08:32 Resp 20 01/18/23 08:32 BP 130/68 01/18/23 08:32 Pulse Ox 92 L 01/18/23 08:32 FiO2 Intake & Output 01/17/23 01/18/23 01/18/23 18:59 06:59 18:59 Intake Total 50 118 Output Total 550 950 300 Balance -500 -950 -182 Weight 121.9 kg Intake: Intake, IV Titration 50 Amount ceFAZolin 2 gm In Sodium 50 Chloride 0.9% 50 ml @ 100 mls/hr IVPB Q12HR OWEN Rx #:[id number] Oral 118 Output: Urine 550 950 300 Other: Voiding Method Urinal Urinal Urinal # Voids 1 - Labs CBC & Chem 7: 01/18/23 08:13 01/18/23 08:13 Labs: Abnormal Lab Results - Last 24 Hours (Table) 01/17/23 01/17/23 01/18/23 Range/Units 16:38 20:07 08:13 WBC 11.5 H (3.8-10.6) k/uL RBC 3.39 L (4.30-5.90) m/uL Hgb 10.7 L (13.0-17.5) gm/dL Hct 35.3 L (39.0-53.0) % MCV 104.3 H (80.0-100.0) fL MCHC 30.3 L (31.0-37.0) g/dL RDW 15.9 H (11.5-15.5) % Neutrophils # 9.0 H (1.3-7.7) k/uL Sodium (137-145) mmol/L BUN (9-20) mg/dL Creatinine (0.66-1.25) mg/dL Glucose (74-99) mg/dL POC Glucose (mg/dL) 118 H 195 H (70-110) mg/dL 01/18/23 01/18/23 Range/Units 08:13 11:57 WBC (3.8-10.6) k/uL RBC (4.30-5.90) m/uL Hgb (13.0-17.5) gm/dL Hct (39.0-53.0) % MCV (80.0-100.0) fL MCHC (31.0-37.0) g/dL RDW (11.5-15.5) % Neutrophils # (1.3-7.7) k/uL Sodium 136 L (137-145) mmol/L BUN 75 H (9-20) mg/dL Creatinine 3.55 H (0.66-1.25) mg/dL Glucose 157 H (74-99) mg/dL POC Glucose (mg/dL) 180 H (70-110) mg/dL Microbiology - Last 24 Hours (Table) 01/15/23 00:30 Blood Culture - Preliminary Blood 01/15/23 00:15 Blood Culture - Preliminary Blood
--- NOTE | 2023-01-19 04:49 | PN ---
PROGRESS NOTE DATE OF SERVICE: 01/18/2023 SUBJECTIVE: This 72-year-old gentleman who was admitted with aortic valve endocarditis also had shortness of breath on admission, the white count is improving. Patient on IV antibiotics. ID is also contemplating possible KARTHIK. No chest pain, no palpitations. No fever. PAST MEDICAL HISTORY: Reviewed. REVIEW OF SYSTEMS: A 14-point review is negative except as mentioned earlier. PHYSICAL EXAMINATION: VITAL SIGNS: Pulse 92, blood pressure 130/80, respirations 20. HEENT: Conjunctivae normal. CARDIOVASCULAR: S1, S2. ABDOMEN: Soft. NERVOUS SYSTEM: No focal deficits. LABORATORY DATA: Reviewed include MSSA from the previous cultures. Most recent cultures are negative. ASSESSMENT: 1. Aortic valve endocarditis, on IV antibiotics through PICC line. 2. Shortness of breath on admission, presumed to be anxiety and mild CHF. 3. Elevated WBC, improving. 4. Hyponatremia. 5. History of DVT. 6. Multiple medical issues. RECOMMENDATIONS AND DISCUSSION: This 72-year-old gentleman presented with multiple complex medical issues, we will monitor the patient closely. I would recommend to continue the current medications and I would also recommend D-dimer. If it is positive, I would recommend a V/Q, otherwise closely follow with Cardiology. The patient is on cefazolin twice daily. As mentioned earlier, the cultures are negative so far. We will wait for input from ID and Cardiology regarding the further evaluation and the patient might require more than 6 weeks of IV antibiotic treatment if the patient continues to be symptomatic. Once again prognosis guarded. Further recommendations to follow. MMODL / IJN: [id number] / [facility]scar
--- NOTE | 2023-01-20 06:40 | P.DS ---
Providers Date of admission: 01/15/23 00:32 Expected date of discharge: 01/18/23 Attending physician: Makayla Fleming Consults: 01/15/23 00:32 Consult Physician Routine Consulting Provider: [facility] Consult Reason/Comments: valvular vegetation, on antibiotics, elevated troponin Do you want consulting provider notified?: Yes Consult Physician Routine Consulting Provider: Art Malik Consult Reason/Comments: leukocytosis in setting of antibiotics for valve vegetation Do you want consulting provider notified?: Yes Primary care physician: Oh Holder [facility] Course: Final diagnosis 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 Currently on cefazolin 2 g every 12. Leukocytosis. improving slowly Acute shortness of breath possibly related to anxiety and mild acute CHF with preserved EF.. Resolved now. CKD stage IV with chronic bilateral lower extremity edema Chronic atrial fibrillation on anticoagulation with Eliquis Elevated troponin level likely due to infection and CKD Diabetes type 2 [id number] Hypertension Hyperlipidemia History of IN Obstructive sleep apnea not on CPAP at home Legally blind bilaterally Prior history of smoking Discharge disposition Patient is being discharged in a stable condition with guarded prognosis to home with home care. Patient will follow-up with Dr. Holder in the outpatient setting upon discharge. Patient is to continue with IV antibiotics in the form of cefazolin per ID recommendations and close outpatient follow-up with cardiology along with infectious disease as scheduled. Total time taken is greater than 35 minutes. Hospital course This is a 72-year-old male who was recently admitted with leukocytosis and had been maintained on IV antibiotics outpatient with a PICC line with multiple comorbidities. Patient evaluated by cardiology along with infectious disease and has had 2 negative blood cultures thus far. Patient's echo has some abnorm alities and again reviewed by cardiology recommending outpatient follow-up and will discuss repeat KARTHIK in the next 1-2 weeks. This was discussed in detail between infectious disease and cardiology Dr. Hernández and patient has been cleared by consultations. Recommend close outpatient follow-up this week as well as following with primary care provider on discharge. Please refer to other consultation notes for further HPI. Patient would really like to go home today. Currently no reports of chest pain, shortness of breath, or palpitations. Patient is afebrile. No reports of nausea or vomiting and patient is tolerating diet. Patient will be discharged home today. Guarded prognosis Physical exam: Gen: This is a 72-year-old male who is awake, alert and oriented 3, well- developed, well-nourished, obese HEENT: Head is atraumatic, normocephalic. Pupils equal, round. Sclerae is anicteric. NECK: Supple. No JVD. No lymphadenopathy. No thyromegaly. LUNGS: Diminished breath sounds bilaterally with no wheezes or rhonchi. No intercostal retractions. HEART: S1, S2 are muffled ABDOMEN: Soft. Bowel sounds are present. No masses. No tenderness. EXTREMITIES: No pedal edema. No calf tenderness. NEUROLOGICAL: Patient is awake, alert and oriented x3. Cranial nerves 2 through 12 are grossly intact. Please refer to medication reconciliation sheet for a list of medications. The impression and plan of care has been dictated by Tarah Denney, Nurse Practitioner as directed. Dr. Lonnie MD I have performed a history and examination and MDM of this patient, discussed the same with the dictator, and agree with the dictator's assessment and plan as written ,documented as a scribe. Based on total visit time, I have performed more than 50% of the visit. Patient Condition at Discharge: Stable Plan - Discharge Summary Discharge Rx Participant: No New Discharge Prescriptions: Continue Simvastatin [Zocor] 20 mg PO HS Aspirin 81 mg PO HS allopurinoL [Zyloprim] 100 mg PO BID Cinnamon Bark [Cinnamon] 500 mg PO DAILY Metoprolol Tartrate 25 mg PO HS Metoprolol Tartrate 50 mg PO DAILY Melatonin 5 mg PO HS Ergocalciferol (Vitamin D2) [Drisdol (50,000 Iu)] 1,250 mcg PO MOWEFR@2100 Linagliptin [Tradjenta] 5 mg PO HS #30 tab Torsemide [Demadex] 40 mg PO DAILY #60 tab ceFAZolin [Kefzol] 2 gm IVP Q12HR #84 each traMADol HCL 50 - 100 mg PO Q6H PRN PRN Reason: Pain Brimonidine Tartrate [Alphagan P 0.2% Ophth Soln] 1 drop BOTH EYES BID calcitrioL [Calcitriol] 0.5 mcg PO SUTH@2100 Apixaban [Eliquis] 2.5 mg PO BID #60 tab Acetaminophen Tab [Tylenol] 650 mg PO Q6HR PRN tab PRN Reason: Mild Pain Or Fever > 100.5 Albuterol Inhaler [Ventolin Hfa Inhaler] 2 puff INHALATION RT-QID PRN #1 each PRN Reason: Shortness Of Breath Or Wheezing Potassium Chloride ER [K-Dur 20] 20 meq PO DAILY #30 tab Discharge Medication List Aspirin 81 mg PO HS 11/05/14 [History] Simvastatin [Zocor] 20 mg PO HS 11/05/14 [History] allopurinoL [Zyloprim] 100 mg PO BID 05/04/16 [History] Cinnamon Bark [Cinnamon] 500 mg PO DAILY 10/06/18 [History] Metoprolol Tartrate 25 mg PO HS 10/06/18 [History] Metoprolol Tartrate 50 mg PO DAILY 10/06/18 [History] Ergocalciferol (Vitamin D2) [Drisdol (50,000 Iu)] 1,250 mcg PO MOWEFR@209911/17/22 [History] Melatonin 5 mg PO HS 11/17/22 [History] calcitrioL [Calcitriol] 0.5 mcg PO SUTH@209911/17/22 [History] Acetaminophen Tab [Tylenol] 650 mg PO Q6HR PRN tab 11/22/22 [Rx] Albuterol Inhaler [Ventolin Hfa Inhaler] 2 puff INHALATION RT-QID PRN #1 each 11/22/22 [Rx] Apixaban [Eliquis] 2.5 mg PO BID #60 tab 11/22/22 [Rx] Linagliptin [Tradjenta] 5 mg PO HS #30 tab 11/22/22 [Rx] Potassium Chloride ER [K-Dur 20] 20 meq PO DAILY #30 tab 12/14/22 [Rx] Torsemide [Demadex] 40 mg PO DAILY #60 tab 12/14/22 [Rx] ceFAZolin [Kefzol] 2 gm IVP Q12HR #84 each 12/14/22 [Rx] Brimonidine Tartrate [Alphagan P 0.2% Ophth Soln] 1 drop BOTH EYES BID 01/15/23 [History] traMADol HCL 50 - 100 mg PO Q6H PRN 01/15/23 [History] Follow up Appointment(s)/Referral(s): [facility], [NON-STAFF] - Oh Holder DO [Primary Care Provider] - 1 Week (Office has no openings at this time; they will call you when they have an opening.) Azam Hernández DO [STAFF PHYSICIAN] - [facility], [[facility]ERR[facility] - Patient Instructions/Handouts: Leukocytosis (DC), PICC (Peripherally Inserted Central Catheter) (DC) Discharge Disposition: HOME WITH HOME HEALTH SERVICES
== END 2023-01-18 13:16 | disposition home health service (06) | DRG 289 ==
LOC: EC 21:49 → 3SCARD 01-15 00:32
PROVIDERS: ADMIT Hospitalist; ATTEND Hospitalist
DX: I33.0 Acute and subacute infective endocarditis (principal); I13.0 Hypertensive heart and chronic kidney disease with heart failure and stage 1 through stage 4 chronic kidney disease, or unspecified chronic kidney disease; I48.19 Other persistent atrial fibrillation; N18.4 Chronic kidney disease, stage 4 (severe); Z20.822 Contact with and (suspected) exposure to COVID-19; D64.9 Anemia, unspecified; E11.22 Type 2 diabetes mellitus with diabetic chronic kidney disease; I08.3 Combined rheumatic disorders of mitral, aortic and tricuspid valves; E78.5 Hyperlipidemia, unspecified; G47.33 Obstructive sleep apnea (adult) (pediatric); I25.2 Old myocardial infarction; R79.89 Other specified abnormal findings of blood chemistry; Z79.01 Long term (current) use of anticoagulants; H54.8 Legal blindness, as defined in USA; I25.10 Atherosclerotic heart disease of native coronary artery without angina pectoris; Z79.82 Long term (current) use of aspirin; Z79.899 Other long term (current) drug therapy; Z87.891 Personal history of nicotine dependence; Z79.4 Long term (current) use of insulin; Z79.84 Long term (current) use of oral hypoglycemic drugs; Z87.19 Personal history of other diseases of the digestive system
CPT/HCPCS: 36415; 71046; 80048; 80053; 81001; 83735; 83880; 84484; 85025; 85027; 85379; 85610; 85652; 85730; 86140; 87636; 93005; 93306; 94760; 99285

== ENCOUNTER 2023-01-18 13:32 | Emergency (ER) | payer MEDICARE ==
[2023-01-18] MEDS ORDERED: DIPH,PERTUS(ACELL)TETVAC-LF 0.5 ML VIAL IM ONE (14:07)
--- NOTE | 2023-01-18 14:23 | ED ---
General Adult HPI - General Chief complaint: Wound/Laceration Stated complaint: cut on L leg Time Seen by Provider: 01/18/23 13:39 Source: patient, RN notes reviewed Mode of arrival: wheelchair Limitations: no limitations - History of Present Illness Initial comments: 72-year-old male presents emergency Department with chief complaint of skin tear. He states that she was just discharged from the hospital and was getting into his vehicle when his foot slipped on the running board of the truck. His berry slid across the running board causing a skin tear. He does not remember his last tetanus shot. denies fall. Denies any other injury. He states he has [facility] care coming to help him. - Related Data Home Medications Medication Instructions Recorded Confirmed Aspirin 81 mg PO HS 11/05/14 01/15/23 Simvastatin [Zocor] 20 mg PO HS 11/05/14 01/15/23 allopurinoL [Zyloprim] 100 mg PO BID 05/04/16 01/15/23 Cinnamon Bark [Cinnamon] 500 mg PO DAILY 10/06/18 01/15/23 Metoprolol Tartrate 25 mg PO HS 10/06/18 01/15/23 Metoprolol Tartrate 50 mg PO DAILY 10/06/18 01/15/23 Ergocalciferol (Vitamin D2) 1,250 mcg PO MOWEFR@209911/17/22 01/15/23 [Drisdol (50,000 Iu)] Melatonin 5 mg PO HS 11/17/22 01/15/23 calcitrioL [Calcitriol] 0.5 mcg PO SUTH@209911/17/22 01/15/23 Brimonidine Tartrate [Alphagan P 1 drop BOTH EYES BID 01/15/23 01/15/23 0.2% Ophth Soln] traMADol HCL 50 - 100 mg PO Q6H PRN 01/15/23 01/15/23 Previous Rx's Medication Instructions Recorded Acetaminophen Tab [Tylenol] 650 mg PO Q6HR PRN tab 11/22/22 Albuterol Inhaler [Ventolin Hfa 2 puff INHALATION RT-QID PRN #1 11/22/22 Inhaler] each Apixaban [Eliquis] 2.5 mg PO BID #60 tab 11/22/22 Linagliptin [Tradjenta] 5 mg PO HS #30 tab 11/22/22 Potassium Chloride ER [K-Dur 20] 20 meq PO DAILY #30 tab 12/14/22 Torsemide [Demadex] 40 mg PO DAILY #60 tab 12/14/22 ceFAZolin [Kefzol] 2 gm IVP Q12HR #84 each 12/14/22 Allergies Allergy/AdvReac Type Severity Reaction Status Date / Time No Known Allergies Allergy Verified 01/18/23 13:36 Review of Systems ROS Statement: Those systems with pertinent positive or pertinent negative responses have been documented in the HPI. ROS Other: All systems not noted in ROS Statement are negative. Past Medical History Past Medical History: Atrial Fibrillation, COPD, Diabetes Mellitus, Deep Vein Thrombosis (DVT), Eye Disorder, Hyperlipidemia, Hypertension, Myocardial Infarction ([place]), Osteoarthritis (OA), Renal Disease, Sleep Apnea/CPAP/BIPAP Additional Past Medical History / Comment(s): 2016 sepsis, severe back pain, hx bacteremia, DDD, renal cysts being followed by Dr. 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 Past Psychological History: No Psychological Hx Reported Smoking Status: Former smoker Past Alcohol Use History: None Reported Past Drug Use History: None Reported - Past Family History Mother Family Medical History: CVA/TIA, Deep Vein Thrombosis (DVT) Additional Family Medical History / Comment(s): Mother is 92 yrs old. She had a CVA which left her with R sided paralysis. Father Family Medical History: Cancer Additional Family Medical History / Comment(s): Father is . General Exam Limitations: no limitations General appearance: alert, in no apparent distress Head exam: Present: atraumatic, normocephalic, normal inspection Extremities exam: Present: full ROM, normal capillary refill, other (6cm skin tear to left berry, DP and PT pulses 2+) Skin exam: Present: warm, dry, intact, normal color, other (skin tear to left berry). Absent: rash Course Vital Signs 01/18/23 01/18/23 13:34 14:45 Temperature 97.5 F L 97.4 F L Pulse Rate 90 88 Respiratory 20 16 Rate Blood Pressure 136/75 130/76 O2 Sat by Pulse 100 100 Oximetry Medical Decision Making - Medical Decision Making Was pt. sent in by a medical professional or institution (JEFF Garcia, FAILURE ANALYSIS TECHNICIAN, urgent care, hospital, or care home...) When possible be specific @ -No Did you speak to anyone other than the patient for history (EMS, parent, family, police, friend...)? What history was obtained from this source @ -No Did you review nursing and triage notes (agree or disagree)? Why? @ -I reviewed and agree with nursing and triage notes Were old charts reviewed (outside hosp., previous admission, EMS record, old EKG, old radiological studies, urgent care reports/EKG's, care home records)? Report findings @ -No old charts were reviewed Differential Diagnosis (chest pain, altered mental status, abdominal pain women, abdominal pain men, vaginal bleeding, weakness, fever, dyspnea, syncope, headache, dizziness, GI bleed, back pain, seizure, CVA, palpatations, mental health, musculoskeletal)? @ -skin tear, laceration, abrasion EKG interpreted by me (3pts min.). @ -None X-rays interpreted by me (1pt min.). @ -None done CT interpreted by me (1pt min.). @ -None done U/S interpreted by me (1pt. min.). @ -None done What testing was considered but not performed or refused? (CT, X-rays, U/S, labs)? Why? @ -None What meds were considered but not given or refused? Why? @ -None Did you discuss the management of the patient with other professionals (professionals i.e. JEFF Garcia, FAILURE ANALYSIS TECHNICIAN, lab, RT, psych nurse, marriage and family social worker, supervisor research kennel, teacher, chief quality officer, showcase maker)? Give summary @ -No Was smoking cessation discussed for >3mins.? @ -No Was critical care preformed (if so, how long)? @ -No Were there social determinants of health that impacted care today? How? (Homelessness, low income, unemployed, alcoholism, drug addiction, transportation, low edu. Level, literacy, decrease access to med. care, senior living, rehab)? @ -No Was there de-escalation of care discussed even if they declined (Discuss DNR or withdrawal of care, Hospice)? DNR status @ -No What co-morbidities impacted this encounter? (DM, HTN, Smoking, COPD, CAD, Cancer, CVA, ARF, Chemo, Hep., AIDS, mental health diagnosis, sleep apnea, morbid obesity)? @ -None Was patient admitted / discharged? Hospital course, mention meds given and route, prescriptions, significant lab abnormalities, going to OR and other pertinent info. @ -Discharged. Patient presented to the emergency department with skin tear to his left berry. tetanus administered. Wound was dressed. Advised to clean with warm water and soap and change dressing daily. Case discussed with Dr. Chapa Undiagnosed new problem with uncertain prognosis? @ -No Drug Therapy requiring intensive monitoring for toxicity (Heparin, Nitro, Insulin, Cardizem)? @ -No Were any procedures done? @ -No Diagnosis/symptom? @ -skin tear Acute, or Chronic, or Acute on Chronic? @ -acute Uncomplicated (without systemic symptoms) or Complicated (systemic symptoms)? @ -uncomplicated Side effects of treatment? @ -No Exacerbation, Progression, or Severe Exacerbation? @ -No Poses a threat to life or bodily function? How? (Chest pain, [place], [place], pneumonia, PE, COPD, DKA, ARF, appy, cholecystitis, CVA, Diverticulitis, Homicidal, Suicidal, threat to staff... and all critical care pts) @ -No Disposition Clinical Impression: Avulsion of skin of left lower leg Disposition: HOME SELF-CARE Condition: Stable Instructions (If sedation given, give patient instructions): Acute Wound Care (ED) Additional Instructions: Please keep area clean and dry. Wash with soap and warm water. Replace with clean dressing daily. Please return to the Emergency Department if symptoms worsen or any other concerns. Is patient prescribed a controlled substance at d/c from ED?: No Referrals: Oh Holder DO [Primary Care Provider] - 1-2 days Time of Disposition: 14:22
[2023-01-18 14:53] VITALS: BP 130/76; PULSE 88; RESP 16; TEMP 97.4
== END 2023-01-18 14:47 | disposition home or self-care (01) ==
LOC: EC 13:32
DX: S81.812A Laceration without foreign body, left lower leg, initial encounter (principal); I48.91 Unspecified atrial fibrillation; J44.9 Chronic obstructive pulmonary disease, unspecified; E78.5 Hyperlipidemia, unspecified; I10 Essential (primary) hypertension; I25.2 Old myocardial infarction; M19.90 Unspecified osteoarthritis, unspecified site; E11.9 Type 2 diabetes mellitus without complications; Z86.718 Personal history of other venous thrombosis and embolism; Z87.891 Personal history of nicotine dependence; Z79.82 Long term (current) use of aspirin; Z79.899 Other long term (current) drug therapy; Z23 Encounter for immunization; W26.8XXA Contact with other sharp object(s), not elsewhere classified, initial encounter
CPT/HCPCS: 90471; 90715; 99282